=== PATIENT | female | born 1950 | race Caucasian/White ===

== ENCOUNTER → 2016-09-12 | Outpatient (CLI) | payer OTHER ==
[~2016-09-12] MED LIST: CALC1TAB9 PO; CHOL400T PO; LISI-729 PO; NAPR-1169 PO; SIMV20TA2 PO
[2016-09-12 18:10] LABS: BLOOD UREA NITROGEN 17 mg/dl (7-18); CARBON DIOXIDE 27 mmol/L (21-32); CHLORIDE 106 mmol/L (98-107); GLUCOSE 76 mg/dl (70-99); POTASSIUM 3.3 mmol/L (3.5-5.1); SODIUM 144 mmol/L (136-145)
== END | disposition home or self-care (01) ==
LOC: C.LABPVFM 15:26
PROVIDERS: ATTEND Nurse Practitioner
DX: M85.80 Other specified disorders of bone density and structure, unspecified site (principal); E55.9 Vitamin D deficiency, unspecified; I10 Essential (primary) hypertension

== ENCOUNTER → 2017-02-02 | Outpatient (CLI) | payer OTHER ==
--- NOTE | 2017-02-02 12:47 | MAMMOGRAPHY REPORT ---
BILATERAL DIGITAL SCREENING MAMMOGRAM TOMOSYNTHESIS WITH CAD: 02/02/2017 CLINICAL HISTORY: Asymptomatic. Personal history of breast cancer. TECHNIQUE: Breast tomosynthesis in addition to standard 2D mammography was performed. Current study was also evaluated with a Computer Aided Detection (CAD) system. COMPARISON: Comparison is made to exams dated: 01/21/2014 mammogram, 01/23/2015 mammogram, 12/31/2012 ma mmogram, 12/16/2011 mammogram, 12/10/2010 mammogram, and 01/29/2016 mammogram - [facility] nter. BREAST COMPOSITION: There are scattered areas of fibroglandular density in both breasts. FINDINGS: No suspicious masses, calcifications, or areas of architectural distortion are noted in ei ther breast. There has been no significant interval change compared to prior exams. There are stable postsurgical changes in the left breast from prior lumpectomy, including coarse benign calcification s at the lumpectomy bed and elsewhere in the left breast. There is also stable diffuse mild left christian ast skin thickening. Benign intramammary lymph nodes are again seen in the right upper outer quadran t. IMPRESSION: ACR BI-RADS CATEGORY 2: BENIGN There is no mammographic evidence of malignancy. A 1 year screening mammogram is recommended. The pa tient will receive written notification of the results. Approximately 10% of breast cancers are not detected with mammography. A negative mammographic report should not delay biopsy if a clinically suggestive mass is present. Jody Hunt M.D. ah/:02/02/2017 07:44:57 Pipeline Superintendent: Isabel LEE(Duncan)(Abdiel), [facility] letter sent: Normal 1/2 BI-RADS Code: ACR BI-RADS Category 2: Benign
== END | disposition home or self-care (01) ==
LOC: C.MAMM 07:15
PROVIDERS: ATTEND Nurse Practitioner
DX: Z12.31 Encounter for screening mammogram for malignant neoplasm of breast (principal); E55.9 Vitamin D deficiency, unspecified; M81.0 Age-related osteoporosis without current pathological fracture; M85.852 Other specified disorders of bone density and structure, left thigh

== ENCOUNTER → 2017-03-28 | Outpatient (CLI) | payer OTHER ==
[2017-03-28 18:22] LABS: BLOOD UREA NITROGEN 16 mg/dl (7-18); CALCIUM 9.2 mg/dl (8.5-10.1); CARBON DIOXIDE 27 mmol/L (21-32); CHLORIDE 109 mmol/L (98-107); CREATININE 0.92 mg/dl (0.60-1.20); GLUCOSE 94 mg/dl (70-99); POTASSIUM 3.8 mmol/L (3.5-5.1); SODIUM 142 mmol/L (136-145)
[2017-03-28 18:25] LABS: CHOLESTEROL 180 mg/dl (0-200); CHOLESTEROL/HDL RATIO 2.4; HDL CHOLESTEROL 75 mg/dl; LDL CHOLESTEROL CALCULATED 91 mg/dl; TRIGLYCERIDES 72 mg/dl (0-150); VERY LOW DENSITY LIPOPROT CALC 14 mg/dl
== END | disposition home or self-care (01) ==
LOC: C.LABPVFM 16:11
PROVIDERS: ATTEND Nurse Practitioner
DX: E78.5 Hyperlipidemia, unspecified (principal); E55.9 Vitamin D deficiency, unspecified; I10 Essential (primary) hypertension

== ENCOUNTER → 2017-03-29 | Outpatient (CLI) | payer OTHER ==
--- NOTE | 2017-03-29 10:36 | DIAGNOSTIC IMAGING REPORT ---
BILATERAL LOWER EXTREMITY VENOUS DOPPLER HISTORY: Acute right lower extremity pain and swelling RT LEG PAIN/SWELLING R/O DVT COMPARISON STUDY: None. FINDINGS: There is normal compressibility, flow, and augmentation within the right lower extremity deep venous system. IMPRESSION: No sonographic evidence of deep venous thrombosis within the right lower extremity. Electronically signed by: Nba Samson M.D. 03/29/2017 10:35 AM Dictated Date/Time: 03/29/2017 10:33 AM
== END | disposition home or self-care (01) ==
LOC: C.ULTRBC 09:45
PROVIDERS: ATTEND Nurse Practitioner
DX: M79.661 Pain in right lower leg (principal)

== ENCOUNTER 2017-04-03 07:00 | Emergency (ER) | payer OTHER ==
[~2017-04-03] VITALS: Ht 154.9 cm; Wt 84.8 kg
[~2017-04-03 07:00] MED LIST changes: -CALC1TAB9 PO; -CHOL400T PO; -NAPR-1169 PO
[2017-04-03 07:06] VITALS: TEMP 36.4; Ht 154.9 cm; Wt 84.8 kg
[2017-04-03] MEDS ORDERED: HYDROCODONE/ACETAMOPHEN 5/325MG TAB PO STA (07:35)
--- NOTE | 2017-04-03 07:50 | EMERGENCY ROOM VISIT NOTE ---
ED Visit Note First contact with patient: 07:14 CHIEF COMPLAINT: Leg swelling and pain HISTORY OF PRESENT ILLNESS: This 67-year-old female patient presented to the emergency department with her son with complaint of right lower extremity pain has been ongoing for the past 2 weeks. She states the pain has come on gradually, describes it as a shooting pain down the right lateral side of her thigh to her ankle, now it has been wrapping around from the lateral side to the back of her knee. She states the pain is worse with putting pressure on the leg and ambulation. She has associated intermittent tingling in her toes and foot. She states that she saw her doctor for this a week ago and had an ultrasound of the leg was negative for blood clots. There has been no injury to the leg or knee, no fever, and no unusual activity which may have strained a muscle recently. She denies any weakness or numbness of the leg, saddle paresthesias, bowel or bladder dysfunction, fevers or chills. There has not been a long period of immobilization or long car or plane ride recently. There is no history of blood clots in the veins of the legs. She does have a history of spinal stenosis and previous lumbar [place] [address] Hicks. REVIEW OF SYSTEMS: Head: No headache, injury or neck pain. Neurological: No headache, new changes in mental status, vertigo, focal weakness, numbness. Cardiac: No chest pain, diaphoresis, dyspnea on exertion, orthopnea, pedal edema, or palpitations. Respiratory: No cough, change in sputum, wheezes, hemoptysis, shortness of breath, or stridor. Gastrointestinal: No abdominal pain, blood in stools, diarrhea, loss of appetite, nausea, or vomiting. General : No fever or chills, fatigue, loss of appetite, or significant recent weight gain or loss. PMH: The patient is healthy; there is no significant medical or surgical history. SOCIAL HISTORY: Patient lives at home. PHYSICAL EXAM: VITALS: Vitals are noted on the nurse's note and reviewed by myself. No abnormalities noted. GENERAL: Pleasant and cooperative, in no acute distress, non-diaphoretic, well- developed well-nourished. SKIN: The skin was without rashes, erythema, edema, or bruising. HEAD: Normocephalic atraumatic. EYES: Pupils equal round and reactive to light and accommodation. The Extraocular movements intact. NECK: Supple without nuchal rigidity. No cervical spine tenderness. No paraspinous muscle tenderness. No lymphadenopathy. HEART: Regular rate and rhythm without murmurs gallops or rubs. LUNGS: Clear to auscultation bilaterally without wheezes, rales or rhonchi. ABDOMEN: Positive bowel sounds x 4. Normal tympanic percussion. Soft, nontender, without masses or organomegaly. Negative axillary or inguinal adenopathy. Packer sign negative. MUSCULOSKELETAL: No muscle atrophy, erythema, or edema noted of the back. There is no tenderness over the lumbar spinous processes. There is no tenderness over the paraspinous muscles. There is no tenderness over the thoracic spine or paraspinous muscles. There are no muscle spasms present. The patient is slow to move around with maximum tenderness with. Positive straight leg raise test on right. There is tenderness with palpation to the right posterior-lateral knee. NEURO: Patient was alert and oriented to person place and time. Normal sensation to light and sharp touch. Deep tendon reflexes 2+ in the lower extremities. Dorsalis pedis pulse 2+ bilaterally. Gait normal. IMAGING: LUMBAR SPINE 5 VIEWS HISTORY: radiating right leg pain/tingling, eval surgical hardware COMPARISON: None. FINDINGS: There is no fracture. No subluxation. Posterior decompression fusion from L4 through S1. 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 The hardware appears intact. Small endplate osteophytes within the L3 and L4 levels. Mild facet osteoarthritis within the lumbar spine. IMPRESSION: No fracture or subluxation within the lumbar spine. Postoperative changes as described above. ----- RIGHT KNEE 2 VIEWS HISTORY: Right knee pain COMPARISON: None. FINDINGS: There is no fracture or dislocation. Soft tissues are unremarkable. No significant knee effusion. There are 2 calcific densities posterior to the joint space with the largest measuring 1.4 cm. These are consistent with intra-articular loose bodies. 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 IMPRESSION: 1. No fracture or dislocation within the right knee. 2. Posterior intra-articular loose bodies. 3. 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 EMERGENCY DEPARTMENT COURSE: I examined the patient. Differential diagnosis includes lumbar radiculopathy, sciatica, leg sprain/strain, contusion, DVT. Based on her exam, I suspect her symptoms may be coming from her lower back in a radiculopathy type pattern. Ultrasound exam of the leg from 5 days ago does not show any evidence of deep venous thrombosis or other abnormality. X-ray of the lumbar spine is unremarkable, intact surgical hardware; X-ray of the right knee shows no acute abnormalities, noted mild arthritis and intra-articular loose bodies. Patient was given a [place] with good improvement. Patient was provided with crutches to stay off of the leg for comfort, she was instructed to follow up with orthopedics regarding both her lower back and her knee, she verbalizes understanding. Patient was discharged home in stable condition. Medication Reconciliation: I attest that I have personally reviewed the patient' s current medication list. Blood pressure screening: The patient was found to have a slightly elevated blood pressure, which was felt to be situational and does not require immediate referral. I discussed the patient with Dr. Ojeda, he agrees with my assessment and plan. Problem List HTN, hyperlipidemia, spinal stenosis Current/Historical Medications Scheduled Calcium Citrate-Vitamin D (Citracal + D3 Maximum), 1 TAB PO DAILY Cholecalciferol (Vitamin D), 800 UNITS PO DAILY Lisinopril (Prinivil), 5 MG PO DAILY Naproxen (Naprosyn), 500 MG PO BID Simvastatin (Zocor), 20 MG PO QPM Allergies Coded Allergies: No Known Allergies (Verified , 04/03/17) Vital Signs Date Time Temp Pulse Resp B/P (MAP) Pulse Ox O2 Delivery O2 Flow Rate FiO2 04/03/17 10:20 147/86 99 Room Air 04/03/17 10:15 75 18 105/61 99 04/03/17 09:22 75 18 105/61 04/03/17 07:06 36.4 82 20 139/82 99 Room Air Medications Administered Medications (Trade) Dose Ordered Sig/Ricky Route Start Time Stop Time Status Last Admin Dose Admin Acetaminophen/ Hydrocodone Bitart ([place] 5/325 Tab) 1 tab NOW STAT PO 04/03/17 07:35 04/03/17 07:36 DC 04/03/17 07:41 1 TAB Departure Information Impression Primary Impression: Pain of right knee and lower leg Dispostion Home / Self-Care Condition GOOD Prescriptions Naproxen (Naprosyn) 500 Mg Tab 500 MG PO BID for 14 Days, #28 TAB Prov: Maricel Thakur CRNP 04/03/17 Referrals Heike Kessler C.R.N.P (PCP) Patient Instructions ED Degenerative Joint Disease, ED Sciatica, [facility] Additional Instructions Stay off of the leg as much as possible and keep elevated. Alternate ice and heat to the swollen sore area frequently over the next few days. You have been prescribed Naprosyn 500mg to be taken twice a day as needed for pain. Your knee x-ray shows arthritis changes which could be causing your knee pain. Follow up with your orthopedic doctor regarding your knee pain. Follow up with your PCP and Dr. Hicks for further evaluation of your pain. Work Instructions Return To Work: 2 days
--- NOTE | 2017-04-03 08:14 | DIAGNOSTIC IMAGING REPORT ---
LUMBAR SPINE 5 VIEWS HISTORY: radiating right leg pain/tingling, eval surgical hardware COMPARISON: None. FINDINGS: There is no fracture. No subluxation. Posterior decompression fusion from L4 through S1. 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 The hardware appears intact. Small endplate osteophytes within the L3 and L4 levels. Mild facet osteoarthritis within the lumbar spine. IMPRESSION: No fracture or subluxation within the lumbar spine. Postoperative changes as described above. Electronically signed by: Brent Obrien M.D. 04/03/2017 8:13 AM Dictated Date/Time: 04/03/2017 8:10 AM
--- NOTE | 2017-04-03 08:14 | EMERGENCY ROOM VISIT NOTE ---
ED Visit Note First contact with patient: 07:14 HPI: Right lateral knee pain x several weeks. Negative duplex by pcp. No urinary retention or bowel incontinence. PE: AFVSS, NAD NC/AT RRR, no murmurs CTAB Abd soft NT/ND Ext: no edema, erythema, mild right knee ttp posterior lateral aspect. FROM intact. No lower back ttp. Distal pulse, motor, sensory intact. Neuro: grossly intact Plan: Xray, analgesia, pcp f/u. I reviewed the patient's past medical history, medications, and visit nursing notes. I discussed the case with the physician press assistant and feeder, examined the patient, and agree with the findings and plan as documented in the physician assistants note.
--- NOTE | 2017-04-03 08:17 | DIAGNOSTIC IMAGING REPORT ---
RIGHT KNEE 2 VIEWS HISTORY: Right knee pain COMPARISON: None. FINDINGS: There is no fracture or dislocation. Soft tissues are unremarkable. No significant knee effusion. There are 2 calcific densities posterior to the joint space with the largest measuring 1.4 cm. These are consistent with intra-articular loose bodies. 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 IMPRESSION: 1. No fracture or dislocation within the right knee. 2. Posterior intra-articular loose bodies. 3. 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 Electronically signed by: Brent Obrien M.D. 04/03/2017 8:16 AM Dictated Date/Time: 04/03/2017 8:15 AM
[2017-04-03] MEDS ORDERED: CALC1TAB9 PO (08:21)
[2017-04-03] MEDS ORDERED: CHOL400T PO (08:21)
[2017-04-03] MEDS ORDERED: NAPR-1169 PO (10:11)
[2017-04-03 10:15] VITALS: PULSE 75
[2017-04-03 10:20] VITALS: BP 147/86; O2SAT 99
== END 2017-04-03 10:29 | disposition home or self-care (01) ==
LOC: C.EDB 07:01
DX: M25.561 Pain in right knee (principal); M79.661 Pain in right lower leg; Z98.1 Arthrodesis status; I10 Essential (primary) hypertension; E78.5 Hyperlipidemia, unspecified; Z79.899 Other long term (current) drug therapy

== ENCOUNTER → 2017-10-17 | Outpatient (CLI) | payer OTHER ==
[~2017-10-17] MED LIST changes: +CALC1TAB9 PO; +CHOL400T PO
[2017-10-17 18:04] LABS: BLOOD UREA NITROGEN 12 mg/dl (7-18); CALCIUM 9.4 mg/dl (8.5-10.1); CARBON DIOXIDE 29 mmol/L (21-32); CREATININE 0.95 mg/dl (0.60-1.20); GLUCOSE 97 mg/dl (70-99); POTASSIUM 3.6 mmol/L (3.5-5.1); SODIUM 140 mmol/L (136-145)
== END | disposition home or self-care (01) ==
LOC: C.LABPVFM 16:20
PROVIDERS: ATTEND Nurse Practitioner
DX: I10 Essential (primary) hypertension (principal); M85.80 Other specified disorders of bone density and structure, unspecified site; E55.9 Vitamin D deficiency, unspecified

== ENCOUNTER → 2018-02-06 | Outpatient (CLI) | payer OTHER ==
--- NOTE | 2018-02-07 13:38 | MAMMOGRAPHY REPORT ---
BILATERAL DIGITAL SCREENING MAMMOGRAM TOMOSYNTHESIS WITH CAD: 02/06/2018 CLINICAL HISTORY: Asymptomatic. Personal history of breast cancer. TECHNIQUE: The study was acquired using full field digital technology and interpreted from soft copy. Breast tomosynthesis in addition to standard 2D mammography was performed. Current study was also ev aluated with a Computer Aided Detection (CAD) system. COMPARISON: Comparison is made to exams dated: 02/02/2017 mammogram, 01/29/2016 mammogram, 02/06/2015 kacie mogram, 01/23/2015 mammogram, 01/21/2014 mammogram, and 12/31/2012 mammogram - [facility] er. BREAST COMPOSITION: There are scattered areas of fibroglandular density in both breasts. FINDINGS: There are stable postsurgical and posttreatment changes in the left breast. A linear scar marker overlies the superior left breast. There is expected architectural distortion and a coarse dy strophic calcification at the surgical site in the approximate 11:00 left breast. Other scattered be nign rodlike and rim calcifications throughout the left breast in addition to mild vascular calcifica tion. Stable intramammary lymph nodes in the right breast. No new suspicious mass, architectural dis tortion or cluster of microcalcifications is seen. IMPRESSION: ACR BI-RADS CATEGORY 1: NEGATIVE There is no mammographic evidence of malignancy. A 1 year screening mammogram is recommended.( 019) The patient will receive written notification of the results. Some breast cancers are not detected with mammography. A negative mammographic report should not adi y biopsy if a clinically suggestive mass is present. Antonina Diaz M.D. ay/:02/06/2018 16:22:41 Cone Winder: Radha Huston, [facility] letter sent: Normal 1/2 BI-RADS Code: ACR BI-RADS Category 1: Negative
== END | disposition home or self-care (01) ==
LOC: C.MAMM 07:14
PROVIDERS: ATTEND Nurse Practitioner
DX: Z12.31 Encounter for screening mammogram for malignant neoplasm of breast (principal); Z85.3 Personal history of malignant neoplasm of breast

== ENCOUNTER 2018-11-01 19:59 | Inpatient (IN) ==
[2018-11-01 20:41] LABS: Basophils # (auto) 0.01 K/uL (0-0.2); Basophils % (auto) 0.1 %; Eosinophils # (auto) 0.14 K/uL (0-0.5); Eosinophils % (auto) 1.9 %; Hematocrit (blood only) 41.3 % (37-47); Lymphocytes # (auto) 1.79 K/uL (1.2-3.4); Lymphocytes % (auto) 23.9 %; Mean Corpuscular Hgb Conc 33.9 g/dL (32-36); Mean Corpuscular Volume 85.7 fL (80-100); Mean Platelet Volume 11.1 fL (7.4-10.4); Monocytes # (auto) 0.56 K/uL (0.11-0.59); Monocytes % (auto) 7.5 %; Neutrophils # (auto) 4.99 K/uL (1.4-6.5); Neutrophils % (auto) 66.6 %; Platelet Count 212 K/uL (130-400); RDW Coefficient of Variation 13.7 % (11.5-14.5); RDW Standard Deviation 43.1 fL (36.4-46.3); Red Blood Count 4.82 M/uL (4.2-5.4); White Blood Count 7.49 K/uL (4.8-10.8)
[2018-11-01] MEDS ORDERED: SODIUM CHLORIDE 0.9% 1000ML 1,000 ML IV ONE (20:48)
[2018-11-01 21:04] LABS: Albumin Level 3.8 gm/dl (3.4-5.0); BUN Creatinine Ratio 13.2 (10-20); Calcium 9.3 mg/dl (8.5-10.1); Creatinine Clr Calc Pharmacy 41.2 ml/min; Est GFR (African American) 51.5; Est GFR (Non-African American) 44.4; Magnesium 2.1 mg/dl (1.8-2.4); Potassium 4.1 mmol/L (3.5-5.1)
--- NOTE | 2018-11-01 21:09 | XRay Report ---
XR chest 1V portable CLINICAL HISTORY: Chest Pain COMPARISON STUDY: Chest radiograph June 20, 2006. FINDINGS: Patient is rotated. There is no pneumothorax or pleural effusion. There is no consolidation or evidence for pulmonary edema. Cardiac size is within normal limits. A density projecting over the left lower lung may reflect a calcified lung nodule or benign rib lesion. Prominent right mediastina l contour is noted. IMPRESSION: 1. Prominent right mediastinal contour. This is probably artifactual. Dilatation of the ascending aor ta could appear similar although is considered less likely. PA and lateral chest radiographs are venkata mmended. 2. No acute cardiopericardial findings. Electronically signed by: Mikey Estrella M.D. 11/01/2018 9:07 PM
[2018-11-01 21:20] LABS: Albumin Globulin Ratio 1.3 (0.9-2); Bilirubin,Total 0.4 mg/dl (0.2-1); Phosphorus 2.7 mg/dl (2.5-4.9); Total Protein 6.8 gm/dl (6.4-8.2); Troponin I 0.236 ng/ml (0-0.045)
[2018-11-01 22:01] LABS: Appearance Urine Clear (Clear); Bacteria Urine Automated Negative (Negative); Bilirubin Urine Negative (Negative); Blood Urine Negative (Negative); Cast Urine Automated 0 /lpf (0-5); Color Urine Yellow; Glucose Urine UA Negative (Negative); Ketones Urine Negative (Negative); Leukocyte Esterase Urine 1+ (Negative); Nitrite Urine Negative (Negative); Protein Urine Negative (Negative); RBC Urine Automated 0-4 /hpf (0-4); Specific Gravity Urine 1.019 (1.000-1.030); Urobilinogen Urine Negative (Negative); pH Urine 6.5 (4.5-7.5)
[2018-11-01] MEDS ORDERED: OPTIRAY 320 125ml IV PRN (22:28)
--- NOTE | 2018-11-01 22:35 | CT Scan Report ---
CT OF THE HEAD WITHOUT CONTRAST CLINICAL HISTORY: Syncope. COMPARISON STUDY: No previous studies for comparison. CT DOSE: 537.48 mGy.cm TECHNIQUE: Helical axial images of the head were obtained without IV contrast. Automated exposure con trol was utilized for the study. A dose lowering technique was utilized adhering to the principles o f ALARA. FINDINGS: No acute intracranial hemorrhage, midline shift or mass effect is present. Brain volume is normal. Ventricular system is normal. The basilar cisterns are patent. There are no extra-axial colle ctions. Jacobs-white differentiation is preserved. There are no findings to suggest acute dural sinus t hrombosis or acute territorial infarct. No calvarial fracture is identified. IMPRESSION: No acute intracranial findings. Electronically signed by: Mikey Estrella M.D. 11/01/2018 10:33 PM
--- NOTE | 2018-11-01 22:45 | Emergency Department Note ---
Entered by Ayad Lee acting as a scribe for Vincent Ojeda MD History of Present Illness General Chief complaint: Dizziness Stated complaint: HEADACHE,DIZZINESS,TACHYCARDIA Time Seen by Provider: 11/01/18 20:32 Source: patient History of Present Illness Onset (ago): hour(s) 1 Location: head (global) Pain Consistency: + other (persistent) Quality: + other (dizziness) Associated symptoms: + cough, + headaches and + weakness The patient is a 68 year old female who presents to the Emergency Room with complaints of persistent dizziness beginning about one hour ago. The patient reports that throughout the day she felt weak. One hour ago while walking in her yard she developed lightheadedness and felt near-syncopal, but she did not lose consciousness and did not feel like the room was spinning. She notes that she currently feels a little dizzy. She reports a headache, stating that she usually has headaches about once a month. She notes an occasional cough. She denies current nausea. She states that she currently feels nervous but denies a history of anxiety. Home Medications Home Medications Medication Instructions Recorded Confirmed Type calcium citrate-vitamin D3 1 tab PO DAILY 11/01/18 11/01/18 History [Calcium Citrate + D] cholecalciferol (vitamin D3) 800 unit PO DAILY 11/01/18 11/01/18 History ibuprofen 200 mg PO Q6H PRN 11/01/18 11/01/18 History lisinopril 5 mg PO DAILY 11/01/18 11/01/18 History simvastatin 20 mg PO Q OTHER DAY 11/01/18 11/01/18 History Allergies Allergy/AdvReac Type Severity Reaction Status Date / Time No Known Allergies Allergy Verified 11/01/18 21:09 Past Med/Surg History Medical History Hypertension Family History Other Family history non-contributory Social History Preferred Language: Citizen Of [place] Feels Safe at Home: Yes Smoking Status: Never smoker Review of Systems See HPI for pertinent positives & negatives. and A total of 10 systems reviewed and were otherwise negative Physical Exam Vital Signs Vital Signs - 24 hr 11/01/18 20:14 11/01/18 20:30 11/01/18 21:55 Temperature 36.5 C Temperature Source Oral Sepsis Recent Fever Within 48 Hours No Sepsis New/Unexplained Change in Mental Status No Sepsis Action Taken by Nursing No Action Required Pulse Rate 93 H Pulse Rate [Left Apical] 73 Pulse Rhythm Regular Regular Pulse Rhythm [Left Apical] Regular Pulse Strength Normal Pulse Strength [Left Apical] Normal Respiratory Rate 20 17 18 Respiratory Effort / Characteristics Non-Labored Spontaneous Non-Labored Spontaneous Respiratory Depth Normal Normal Respiratory Pattern Regular Regular Blood Pressure 129/80 Blood Pressure [Right Arm] 125/72 Blood Pressure Mean 96 Blood Pressure Mean [Right Arm] 89 Blood Pressure Position Sitting Blood Pressure Position [Right Arm] Lying Pulse Oximetry 97 97 Oxygen Delivery Method Room Air Room Air Room Air 11/02/18 00:04 11/02/18 01:31 11/02/18 01:48 Temperature 36.5 C Temperature Source Oral Sepsis Recent Fever Within 48 Hours Sepsis New/Unexplained Change in Mental Status Sepsis Action Taken by Nursing Pulse Rate 73 Pulse Rate [Left Apical] 63 71 Pulse Rhythm Pulse Rhythm [Left Apical] Regular Regular Pulse Strength Pulse Strength [Left Apical] Normal Respiratory Rate 19 17 18 Respiratory Effort / Characteristics Non-Labored Spontaneous Respiratory Depth Normal Normal Respiratory Pattern Regular Blood Pressure 127/97 Blood Pressure [Right Arm] 130/67 133/83 Blood Pressure Mean Blood Pressure Mean [Right Arm] 88 99 Blood Pressure Position Blood Pressure Position [Right Arm] Sitting Lying Pulse Oximetry 96 97 94 Oxygen Delivery Method Room Air Room Air GENERAL: Awake, alert, fatigued-appearing, in no distress HENT: Normocephalic, atraumatic. Mucous membranes dry. EYES: Normal conjunctiva. Sclera non-icteric. EOMI. No nystamgus. PEARRL. NECK: Supple. No nuchal rigidity. FROM. No JVD. RESPIRATORY: CTAB. Normal effort. CARDIAC: Regular rate, normal rhythm. Extremities warm and well perfused. Pulses equal. ABDOMEN: Soft, non-distended. No tenderness to palpation. No rebound or guarding. No masses. RECTAL: Deferred. MUSCULOSKELETAL: Chest examination reveals no tenderness. The back is symmetrical on inspection without obvious abnormality. There is no CVA tendern ess to palpation. No joint edema. LOWER EXTREMITIES: Calves are equal size bilaterally and non-tender. No edema. No discoloration. NEURO: Normal sensorium. No sensory or motor deficits noted. Cerebellar function intact, including finger to nose, alternating palms, heel to langley. 5/5 strength and SILT x 4 extremities. SKIN: No rash or jaundice noted. Course 2036: The patient was evaluated in room B9. A complete history and physical examination were performed. 2136: I updated the patient on current results. Administered Medications Ioversol (Optiray 320 125ml) 125 ml IV ONCE PRN PRN Reason: Interaction Checking Stop: 11/05/18 22:27 Last Admin: 11/01/18 22:28 Dose: 119 ml Documented by: [id number] Discontinued Medications Aspirin (Aspirin) 324 mg PO NOW STA Stop: 11/01/18 23:02 Last Admin: 11/01/18 23:36 Dose: 324 mg Documented by: [id number] Sodium Chloride (Nss 1000ml) 1,000 mls @ 999 mls/hr IV .Q1H1M ONE Stop: 11/01/18 21:48 Last Infusion: 11/01/18 22:13 Dose: 0 mls/hr Documented by: [id number] Admin: 11/01/18 21:20 Dose: 999 mls/hr Documented by: [id number] Acetaminophen (Ofirmev) 1,000 mg in 100 mls @ 400 mls/hr IV NOW STA Stop: 11/01/18 23:22 Last Infusion: 11/02/18 00:35 Dose: 0 mls/hr Documented by: [id number] Admin: 11/01/18 23:36 Dose: 400 mls/hr Documented by: [id number] Medical Decision Making Differential Diagnosis Differential diagnosis includes: vasovagal event, infection, hypoglycemia, electrolyte abnormalities, cardiac sources, intracerebral event, toxicologic, neurologic, as well as others were entertained. Medical Records Attestation: I reviewed the patient's medical records. Home Medications Current Medication List: was personally reviewed by me Laboratory Data Attestation: I reviewed the patient's lab results. Result diagrams: 11/01/18 20:35 11/02/18 01:59 Lab Results 11/01/18 11/01/18 11/01/18 Range/Units 20:35 20:35 21:05 WBC 7.49 (4.8-10.8) K/uL RBC 4.82 (4.2-5.4) M/uL Hgb 14.0 (12.0-16.0) g/dL Hct 41.3 (37-47) % MCV 85.7 (80-100) fL MCH 29.0 (25-34) pg MCHC 33.9 (32-36) g/dL RDW Std Deviation 43.1 (36.4-46.3) fL RDW Coeff of Denisha 13.7 (11.5-14.5) % Plt Count 212 (130-400) K/uL MPV 11.1 H (7.4-10.4) fL Immature Gran % (Auto) 0.0 % Neut % (Auto) 66.6 % Lymph % (Auto) 23.9 % Gray % (Auto) 7.5 % Eos % (Auto) 1.9 % Baso % (Auto) 0.1 % Immature Gran # (Auto) 0.00 (0.00-0.02) K/uL Neut # (Auto) 4.99 (1.4-6.5) K/uL Lymph # (Auto) 1.79 (1.2-3.4) K/uL Gray # (Auto) 0.56 (0.11-0.59) K/uL Eos # (Auto) 0.14 (0-0.5) K/uL Baso # (Auto) 0.01 (0-0.2) K/uL PT (9.0-12.0) Seconds INR (0.9-1.1) APTT (21.0-31.0) Seconds PTT Ratio Sodium 142 (136-145) mmol/L Potassium 4.1 (3.5-5.1) mmol/L Chloride 112 H (98-107) mmol/L Carbon Dioxide 26 (21-32) mmol/L Anion Gap 4.0 (3-11) BUN 16 (7-18) mg/dl Creatinine 1.23 H (0.6-1.2) mg/dl Est Cr Clr Drug Dosing 41.2 ml/min Est GFR ( Amer) 51.5 Est GFR (Non-Af Amer) 44.4 BUN/Creatinine Ratio 13.2 (10-20) Glucose 102 H (70-99) mg/dl Calcium 9.3 (8.5-10.1) mg/dl Phosphorus 2.7 (2.5-4.9) mg/dl Magnesium 2.1 (1.8-2.4) mg/dl Total Bilirubin 0.4 (0.2-1) mg/dl AST 16 (15-37) U/L ALT 26 (12-78) U/L Alkaline Phosphatase 68 (45-117) U/L Troponin I 0.236 H* (0-0.045) ng/ml Total Protein 6.8 (6.4-8.2) gm/dl Albumin 3.8 (3.4-5.0) gm/dl Globulin 3.0 (2.5-4.0) gm/dl Albumin/Globulin Ratio 1.3 (0.9-2) Triglycerides (0-150) mg/dl Cholesterol (0-200) mg/dl LDL Cholesterol, Calc mg/dl VLDL Cholesterol, Calc mg/dl HDL Cholesterol mg/dl Cholesterol/HDL Ratio Lipase 131 (73-393) U/L TSH 1.090 (0.300-4.500) uIu/ml Urine Color Yellow Urine Appearance Clear (Clear) Urine pH 6.5 (4.5-7.5) Ur Specific Homer 1.019 (1.000-1.030) Urine Protein Negative (Negative) Urine Glucose (UA) Negative (Negative) Urine Ketones Negative (Negative) Urine Blood Negative (Negative) Urine Nitrite Negative (Negative) Urine Bilirubin Negative (Negative) Urine Urobilinogen Negative (Negative) Ur Leukocyte Esterase 1+ H (Negative) Urine WBC (Auto) 1-5 (0-5) /hpf Urine RBC (Auto) 0-4 (0-4) /hpf U Hyaline Cast (Auto) 0 (0-5) /lpf U Epithel Cells (Auto) 5-10 H (0-5) /lpf Urine Bacteria (Auto) Negative (Negative) 11/01/18 11/01/18 11/02/18 Range/Units 22:47 23:21 01:59 WBC (4.8-10.8) K/uL RBC (4.2-5.4) M/uL Hgb (12.0-16.0) g/dL Hct (37-47) % MCV (80-100) fL MCH (25-34) pg MCHC (32-36) g/dL RDW Std Deviation (36.4-46.3) fL RDW Coeff of Denisha (11.5-14.5) % Plt Count (130-400) K/uL MPV (7.4-10.4) fL Immature Gran % (Auto) % Neut % (Auto) % Lymph % (Auto) % Gray % (Auto) % Eos % (Auto) % Baso % (Auto) % Immature Gran # (Auto) (0.00-0.02) K/uL Neut # (Auto) (1.4-6.5) K/uL Lymph # (Auto) (1.2-3.4) K/uL Gray # (Auto) (0.11-0.59) K/uL Eos # (Auto) (0-0.5) K/uL Baso # (Auto) (0-0.2) K/uL PT 11.4 (9.0-12.0) Seconds INR 1.1 (0.9-1.1) APTT 25.6 (21.0-31.0) Seconds PTT Ratio 0.9 Sodium 139 (136-145) mmol/L Potassium 4.0 (3.5-5.1) mmol/L Chloride 110 H (98-107) mmol/L Carbon Dioxide 27 (21-32) mmol/L Anion Gap 2.0 L (3-11) BUN 15 (7-18) mg/dl Creatinine 1.08 (0.6-1.2) mg/dl Est Cr Clr Drug Dosing 46.9 ml/min Est GFR ( Amer) 60.2 Est GFR (Non-Af Amer) 52.0 BUN/Creatinine Ratio 14.2 (10-20) Glucose 101 H (70-99) mg/dl Calcium 9.0 (8.5-10.1) mg/dl Phosphorus (2.5-4.9) mg/dl Magnesium (1.8-2.4) mg/dl Total Bilirubin 0.5 (0.2-1) mg/dl AST 14 L (15-37) U/L ALT 23 (12-78) U/L Alkaline Phosphatase 69 (45-117) U/L Troponin I 0.395 H* 0.450 H* (0-0.045) ng/ml Total Protein 6.7 (6.4-8.2) gm/dl Albumin 3.7 (3.4-5.0) gm/dl Globulin 3.0 (2.5-4.0) gm/dl Albumin/Globulin Ratio 1.2 (0.9-2) Triglycerides 100 (0-150) mg/dl Cholesterol 168 (0-200) mg/dl LDL Cholesterol, Calc 88 mg/dl VLDL Cholesterol, Calc 20 mg/dl HDL Cholesterol 60 mg/dl Cholesterol/HDL Ratio 3 Lipase (73-393) U/L TSH (0.300-4.500) uIu/ml Urine Color Urine Appearance (Clear) Urine pH (4.5-7.5) Ur Specific Homer (1.000-1.030) Urine Protein (Negative) Urine Glucose (UA) (Negative) Urine Ketones (Negative) Urine Blood (Negative) Urine Nitrite (Negative) Urine Bilirubin (Negative) Urine Urobilinogen (Negative) Ur Leukocyte Esterase (Negative) Urine WBC (Auto) (0-5) /hpf Urine RBC (Auto) (0-4) /hpf U Hyaline Cast (Auto) (0-5) /lpf U Epithel Cells (Auto) (0-5) /lpf Urine Bacteria (Auto) (Negative) Imaging Data Radiologist's Impression: Radiology results as stated below per my review and the radiologist's interpretation: XR chest 1V portable CLINICAL HISTORY: Chest Pain COMPARISON STUDY: Chest radiograph June 20, 2006. FINDINGS: Patient is rotated. There is no pneumothorax or pleural effusion. There is no consolidation or evidence for pulmonary edema. Cardiac size is within normal limits. A density projecting over the left lower lung may reflect a calcified lung nodule or benign rib lesion. Prominent right mediastinal contour is noted. IMPRESSION: 1. Prominent right mediastinal contour. This is probably artifactual. Dilatation of the ascending aorta could appear similar although is considered less likely. PA and lateral chest radiographs are recommended. 2. No acute cardiopericardial findings. Electronically signed by: Mikey Estrella M.D. 11/01/2018 9:[address] OF THE HEAD WITHOUT CONTRAST CLINICAL HISTORY: Syncope. COMPARISON STUDY: No previous studies for comparison. CT DOSE: 537.48 mGy.cm TECHNIQUE: Helical axial images of the head were obtained without IV contrast. Automated exposure control was utilized for the study. A dose lowering technique was utilized adhering to the principles of ALARA. FINDINGS: No acute intracranial hemorrhage, midline shift or mass effect is present. Brain volume is normal. Ventricular system is normal. The basilar cisterns are patent. There are no extra-axial collections. Jacobs-white di fferentiation is preserved. There are no findings to suggest acute dural sinus thrombosis or acute territorial infarct. No calvarial fracture is identified. IMPRESSION: No acute intracranial findings. Electronically signed by: Mikey Estrella M.D. 11/01/2018 10:33 PM ---- CT ANGIOGRAPHY OF THE CHEST, PULMONARY EMBOLUS PROTOCOL CLINICAL HISTORY: Chest pain. Syncope. COMPARISON STUDY: Chest radiograph performed earlier today. TECHNIQUE: Following IV administration of 119 mL of Optiray-320, helical axial images of the chest were obtained utilizing the pulmonary embolus protocol. Maximal intensity projections and sagittal and coronal reformats were viewed on an independent 3D workstation. IV contrast was administered without complication. Automated exposure control was utilized for the study. A dose lowering technique was utilized adhering to the principles of ALARA. CT DOSE: 521.79 mGy.cm FINDINGS: No pulmonary emboli are identified. There is no thoracic aortic dissection. The heart is mildly enlarged. There is no pericardial effusion. No enlarged thoracic lymph nodes are present. The central airways are patent. There is no consolidation to suggest pneumonia. No pneumothorax or pleural effusion is noted. Bony thorax and upper abdomen are unremarkable. Prominence of the right mediastinal contour on chest radiograph was due to normal structures. The calibe r of the thoracic aorta is normal. IMPRESSION: 1. No pulmonary emboli identified. 2. No acute intrathoracic findings. 3. Mild cardiomegaly. 4. Apparent abnormal mediastinal contour on chest radiograph was due to normal structures. Normal caliber thoracic aorta. Electronically signed by: Mikey Estrella M.D. 11/01/2018 10:56 PM ECG Data Attestation: I personally reviewed and interpreted this ECG as follows: Indication: other (dizziness, weakness) Rate (beats per minute): 80 Rhythm: normal sinus Findings: + other (LVH; no overt acute ischemic changes) and + nonspecific-ST abn Comparison ECG Date: from (06/20/06) Change: no significant change Blood Pressure Blood Pressure Findings: Normal blood pressure Blood Pressure Disposition: did not require urgent referral MDM Narrative The patient is a pleasant 68-year-old woman with a past medical history of hypertension, hyperlipidemia who presents to the emergency department with generalized weakness and lightheadedness/near syncope prior to arrival when she was outside walking in her yard per hpi. She denies any chest pain, nausea or vomiting, or shortness of breath with episode. On arrival the patient is fatigued appearing but no acute distress, afebrile stable vital signs. Patient appears clinically dry. She is neurologically intact. EKG demonstrates sinus rhythm with criteria for LVH and nonspecific ST abnormalities with right bundle branch morphology that is similar to her EKG 2005. Chest x-ray without evidence of pneumonia but does demonstrate prominent right mediastinal contour further clarified on CT chest that is normal anatomy. WBC, H/H, platelets wnl. Chemistry without acidosis. Creatinine 1.23 similar to value 2 weeks ago LFTs and elect rolytes unremarkable. Troponin elevated at 0.236 without recent prior values for comparison. UA negative. CT head negative. CTA of the chest negative for PE or dissection. Patient continuing to feel improved after IV fluid hydration. She reports a mild headache and denies CP, SOB, or nausea. Unclear etiology the patient's troponin elevation at this time. Patient ordered for aspirin. Repeat EKG unchanged. Delta 2-hour troponin ordered and pending. Case d/w Dr. Kramer, [facility] hospitalist, who will evaluate the patient for admission. Impression & Plan Near syncope, Elevated troponin Discharge Plan Visit Data *Final* Discharge Date/Time: 11/02/18 01:31 Chief Complaint: Dizziness Stated Complaint: HEADACHE,DIZZINESS,TACHYCARDIA ED Provider: Vincent Ojeda Discharge Problem: Near syncope, Elevated troponin Patient Disposition: Admitted As Inpatient Discharge Instructions Interventions: ED Discharge Assessment Last Done: 11/02/18 01:31 The scribe's documentation has been prepared under my direction and personally reviewed by me in its entirety. I confirm that the note above accurately reflects all work, treatment, procedures, and medical decision making performed by me.
--- NOTE | 2018-11-01 22:57 | CT Scan Report ---
CT ANGIOGRAPHY OF THE CHEST, PULMONARY EMBOLUS PROTOCOL CLINICAL HISTORY: Chest pain. Syncope. COMPARISON STUDY: Chest radiograph performed earlier today. TECHNIQUE: Following IV administration of 119 mL of Optiray-320, helical axial images of the chest we re obtained utilizing the pulmonary embolus protocol. Maximal intensity projections and sagittal and coronal reformats were viewed on an independent 3D workstation. IV contrast was administered withou t complication. Automated exposure control was utilized for the study. A dose lowering technique wa s utilized adhering to the principles of ALARA. CT DOSE: 521.79 mGy.cm FINDINGS: No pulmonary emboli are identified. There is no thoracic aortic dissection. The heart is m ildly enlarged. There is no pericardial effusion. No enlarged thoracic lymph nodes are present. The c entral airways are patent. There is no consolidation to suggest pneumonia. No pneumothorax or pleural effusion is noted. Bony thorax and upper abdomen are unremarkable. Prominence of the right mediastin al contour on chest radiograph was due to normal structures. The caliber of the thoracic aorta is nor mal. IMPRESSION: 1. No pulmonary emboli identified. 2. No acute intrathoracic findings. 3. Mild cardiomegaly. 4. Apparent abnormal mediastinal contour on chest radiograph was due to normal structures. Normal christian iber thoracic aorta. Electronically signed by: Mikey Estrella M.D. 11/01/2018 10:56 PM
[2018-11-01] MEDS ORDERED: ASPIRIN CHEW 324 MG PO STA (23:01)
[2018-11-01] MEDS ORDERED: ACETAMINOPHEN 1,000 MG/100 ML VIAL IV STA (23:08)
[2018-11-01 23:25] LABS: INR 1.1 (0.9-1.1); Partial Thromboplastin Ratio 0.9; Partial Thromboplastin Time 25.6 Seconds (21.0-31.0); Prothrombin Time 11.4 Seconds (9.0-12.0)
[2018-11-02] MEDS ORDERED: ACETAMINOPHEN 325 MG TAB PO PRN (01:48)
[2018-11-02] MEDS ORDERED: NITROGLYCERIN SL 0.4 MG/TAB TAB SL PRN (01:48)
[2018-11-02] MEDS ORDERED: POLYETHYLENE (MIRALAX) 17 GM PACK PO PRN (01:48)
[2018-11-02] MEDS ORDERED: ACETAMINOPHEN 1000 MG/100 ML IV IV PRN (01:48)
[2018-11-02] MEDS ORDERED: MAGNESIUM HYDROXIDE SUSP 30 ML UDC PO PRN (01:48)
[2018-11-02] MEDS ORDERED: ONDANSETRON INJ 2 MG/ML 2 ML VIAL IV PRN (01:48)
[2018-11-02] MEDS ORDERED: ALUMINUM/MAGNESIUM SUSP 30 ML UDC PO PRN (01:48)
[2018-11-02 02:33] LABS: Albumin Level 3.7 gm/dl (3.4-5.0); BUN Creatinine Ratio 14.2 (10-20); Creatinine Clr Calc Pharmacy 46.9 ml/min; Est GFR (African American) 60.2
[2018-11-02 02:40] LABS: Albumin Globulin Ratio 1.2 (0.9-2); Bilirubin,Total 0.5 mg/dl (0.2-1); Total Protein 6.7 gm/dl (6.4-8.2); Troponin I 0.45 ng/ml (0-0.045)
--- NOTE | 2018-11-02 04:49 | History & Physical Report ---
Date of Service November 02, 2018 Assessment & Plan (1) NSTEMI (non-ST elevated myocardial infarction): Troponin elevated on admission labs at 0.236. The patient will be admitted to telemetry for serial cardiac enzymes, serial EKG's, cardiac rhythm monitoring and a 2-D echocardiogram with Dopplers. EKG shows normal sinus rhythm at 60 bpm, right bundle branch block, T wave inversion in lead III, and flattening in aVF. Start heparin drip low-dose no bolus. Aspirin 81 mg p.o. every morning. Nitropaste 1 inch anterior chest wall every 6 hours. Consult cardiology Present on Admission?: Yes (2) Near syncope: Unclear etiology at this time. Chest x-ray, CT of head, and CT a of chest are all negative. Follow on monitor for possible arrhythmia. Continue cardiac work-up otherwise. Present on Admission?: Yes (3) Hypertension: Will hold lisinopril due to mild acute kidney injury with creatinine 1.25. Repeat laboratories in the a.m. Present on Admission?: Yes (4) Hyperlipidemia LDL goal <70: Continue simvastatin, but increase from 20 mg every other day to 40 mg daily Present on Admission?: Yes History of Present Illness Chief Complaint: The patient presented to the emergency department with complaint of headache, dizziness and palpitations. Primary Care Provider: LUIS Brumfield The patient is a 68-year-old female with a PMH including hypertension, and hyperlipidemia who presents to the emergency department with the acute onset of headache, dizziness and palpitations about 1 hour prior to arrival. She had generally been feeling weak during the day yesterday that began at work. She then reports that when walking her dog outside, she felt like she was almost going to pass out. She did not have any focal numbness, weakness or tingling in arms or legs, although she does report having some light tingling equally in both feet at this time. She reports headaches that began about 1 month ago. She has not had any any recent change in her dietary intake. She has not had any recent travels or sick exposures. Allergies Allergy/AdvReac Type Severity Reaction Status Date / Time No Known Allergies Allergy Verified 11/01/18 21:09 Home Medications Home Medications Medication Instructions Recorded Confirmed Type calcium citrate-vitamin D3 1 tab PO DAILY 11/01/18 11/01/18 History [Calcium Citrate + D] cholecalciferol (vitamin D3) 800 unit PO DAILY 11/01/18 11/01/18 History ibuprofen 200 mg PO Q6H PRN 11/01/18 11/01/18 History lisinopril 5 mg PO DAILY 11/01/18 11/01/18 History simvastatin 20 mg PO Q OTHER DAY 11/01/18 11/01/18 History Past Med/Surg History Medical History Hypertension Family History Other Family history non-contributory Social History Preferred Language: [place]al[place] Communication Ability: Effective Popcorn Attendant Required: No Beliefs That Will Affect Care: None Current Living Situation: Family Current Living Situation Comment: with son Feels Safe at Home: Yes Safety Concerns: Feels Safe At This Time Smoking Status: Never smoker Hx Alcohol Use: Yes Hx Substance Use: No Review of Systems Review of Systems: The patient denies chest pain, lower extremity swelling, sore throat, fevers, chills, sweats, nausea, vomiting, diarrhea , constipation, abdominal pain, pelvic pain, blood in urine or stool, dysuria, urinary frequency or urgency, memory loss, los s of consciousness, rash, abnormal bruising or bleeding, focal or generalized weakness, numbness or tingling in arms or legs, generalized arthralgias or myalgias, back or neck pain, or night sweats. The review of systems is otherwise negative other than for that already noted above, and at least 10 systems have been reviewed. Physical Exam Physical Exam: The patient is awake, alert and oriented 3, well developed and well nourished, normocephalic and atraumatic, lying in bed and in no acute distress. HEENT--PERRL, EOMI, mucous membranes and oropharynx dry. Neck--supple. No JVD. No bruits. Thyroid normal, trachea midline, no adenopathy. Heart--normal S1 and S2. No murmurs, rubs or gallops. Lungs--clear bilaterally, no respiratory distress, no accessory muscle use. Abdomen--normal bowel sounds and soft. Nontender. Nondistended, no hernias or masses, no organomegaly. Extremities--no cyanosis or clubbing. No edema. There are good distal pulses b/l. Dermatologic--normal skin turgor, normal color, no abnormal lymph nodes, no rash. Neurologic--cranial nerves II through XII grossly intact. Rheumatologic--normal range of motion. Psychiatric--normal affect. Results & Data Vital Signs (Past 12 Hours) Vital Signs Temp Pulse Pulse Resp BP BP Pulse Ox 11/02/18 02:00 68 11/02/18 01:48 97.7 F 71 18 133/83 94 11/02/18 01:40 97.7 F 71 18 133/83 94 11/02/18 01:31 73 17 127/97 97 11/02/18 00:04 63 19 130/67 96 11/01/18 21:55 73 18 125/72 97 11/01/18 20:30 17 11/01/18 20:14 97.7 F 93 H 20 129/80 97 Laboratory Results Laboratory Results WBC 7.49 K/uL (4.8-10.8) 11/01/18 20:35 RBC 4.82 M/uL (4.2-5.4) 11/01/18 20:35 Hgb 14.0 g/dL (12.0-16.0) 11/01/18 20:35 Hct 41.3 % (37-47) 11/01/18 20:35 MCV 85.7 fL (80-100) 11/01/18 20:35 MCH 29.0 pg (25-34) 11/01/18 20:35 MCHC 33.9 g/dL (32-36) 11/01/18 20:35 RDW Std Deviation 43.1 fL (36.4-46.3) 11/01/18 20:35 RDW Coeff of Denisha 13.7 % (11.5-14.5) 11/01/18 20:35 Plt Count 212 K/uL (130-400) 11/01/18 20:35 MPV 11.1 fL (7.4-10.4) H 11/01/18 20:35 Immature Gran % (Auto) 0.0 % 11/01/18 20:35 Neut % (Auto) 66.6 % 11/01/18 20:35 Lymph % (Auto) 23.9 % 11/01/18 20:35 Ripley % (Auto) 7.5 % 11/01/18 20:35 Eos % (Auto) 1.9 % 11/01/18 20:35 Baso % (Auto) 0.1 % 11/01/18 20:35 Immature Gran # (Auto) 0.00 K/uL (0.00-0.02) 11/01/18 20:35 Neut # (Auto) 4.99 K/uL (1.4-6.5) 11/01/18 20:35 Lymph # (Auto) 1.79 K/uL (1.2-3.4) 11/01/18 20:35 Ripley # (Auto) 0.56 K/uL (0.11-0.59) 11/01/18 20:35 Eos # (Auto) 0.14 K/uL (0-0.5) 11/01/18 20:35 Baso # (Auto) 0.01 K/uL (0-0.2) 11/01/18 20:35 PT 11.4 Seconds (9.0-12.0) 11/01/18 22:47 INR 1.1 (0.9-1.1) 11/01/18 22:47 APTT 25.6 Seconds (21.0-31.0) 11/01/18 22:47 PTT Ratio 0.9 11/01/18 22:47 Sodium 139 mmol/L (136-145) 11/02/18 01:59 Potassium 4.0 mmol/L (3.5-5.1) 11/02/18 01:59 [place] 110 mmol/L (98-107) H 11/02/18 01:59 Carbon Dioxide 27 mmol/L (21-32) 11/02/18 01:59 Anion Gap 2.0 (3-11) L 11/02/18 01:59 BUN 15 mg/dl (7-18) 11/02/18 01:59 Creatinine 1.08 mg/dl (0.6-1.2) 11/02/18 01:59 Est Cr Clr Drug Dosing 46.9 ml/min 11/02/18 01:59 Est GFR ( Amer) 60.2 11/02/18 01:59 Est GFR (Non-Af Amer) 52.0 11/02/18 01:59 BUN/Creatinine Ratio 14.2 (10-20) 11/02/18 01:59 Glucose 101 mg/dl (70-99) H 11/02/18 01:59 Calcium 9.0 mg/dl (8.5-10.1) 11/02/18 01:59 Phosphorus 2.7 mg/dl (2.5-4.9) 11/01/18 20:35 Magnesium 2.1 mg/dl (1.8-2.4) 11/01/18 20:35 Total Bilirubin 0.5 mg/dl (0.2-1) 11/02/18 01:59 AST 14 U/L (15-37) L 11/02/18 01:59 ALT 23 U/L (12-78) 11/02/18 01:59 Alkaline Phosphatase 69 U/L (45-117) 11/02/18 01:59 Troponin I 0.450 ng/ml (0-0.045) H* 11/02/18 01:59 Total Protein 6.7 gm/dl (6.4-8.2) 11/02/18 01:59 Albumin 3.7 gm/dl (3.4-5.0) 11/02/18 01:59 Globulin 3.0 gm/dl (2.5-4.0) 11/02/18 01:59 Albumin/Globulin Ratio 1.2 (0.9-2) 11/02/18 01:59 Triglycerides 100 mg/dl (0-150) 11/02/18 01:59 Cholesterol 168 mg/dl (0-200) 11/02/18 01:59 LDL Cholesterol, Calc 88 mg/dl 11/02/18 01:59 VLDL Cholesterol, Calc 20 mg/dl 11/02/18 01:59 HDL Cholesterol 60 mg/dl 11/02/18 01:59 Cholesterol/HDL Ratio 3 11/02/18 01:59 Lipase 131 U/L (73-393) 11/01/18 20:35 TSH 1.090 uIu/ml (0.300-4.500) 11/01/18 20:35 Urine Color Yellow 11/01/18 21:05 Urine Appearance Clear (Clear) 11/01/18 21:05 Urine pH 6.5 (4.5-7.5) 11/01/18 21:05 Ur Specific Bryan 1.019 (1.000-1.030) 11/01/18 21:05 Urine Protein Negative (Negative) 11/01/18 21:05 Urine Glucose (UA) Negative (Negative) 11/01/18 21:05 Urine Ketones Negative (Negative) 11/01/18 21:05 Urine Blood Negative (Negative) 11/01/18 21:05 Urine Nitrite Negative (Negative) 11/01/18 21:05 Urine Bilirubin Negative (Negative) 11/01/18 21:05 Urine Urobilinogen Negative (Negative) 11/01/18 21:05 Ur Leukocyte Esterase 1+ (Negative) H 11/01/18 21:05 Urine WBC (Auto) 1-5 /hpf (0-5) 11/01/18 21:05 Urine RBC (Auto) 0-4 /hpf (0-4) 11/01/18 21:05 U Hyaline Cast (Auto) 0 /lpf (0-5) 11/01/18 21:05 U Epithel Cells (Auto) 5-10 /lpf (0-5) H 11/01/18 21:05 Urine Bacteria (Auto) Negative (Negative) 11/01/18 21:05 [place], [place] [phone] XRay Report Patient: BALBIR MONDRAGON Date: 11/01/18 MR#: [id number]: [address] [facility] Acct ID:[id number]: Date: 1950[facility] Zip: [place] [address] Age: 68Location: ED Sex: F Room/Bed: Att Phy: Diagnosis: HEADACHE,DIZZINESS,TACHYCARDIA Sweetie Phy: Heike Kessler CRNPService Date: 11/01/18 Fam Phy: Interpreting Phy: Mikey Estrella MD Admit Phy: Ordering Phy: Vincent Ojeda M.D. cc: ~ XR chest 1V portable CLINICAL HISTORY: Chest Pain COMPARISON STUDY: Chest radiograph June 20, 2006. FINDINGS: Patient is rotated. There is no pneumothorax or pleural effusion. There is no consolidation or evidence for pulmonary edema. Cardiac size is within normal limits. A density projecting over the left lower lung may reflect a calcified lung nodule or benign rib lesion. Prominent right mediastinal contour is noted. IMPRESSION: 1. Prominent right mediastinal contour. This is probably artifactual. Dilatation of the ascending aorta could appear similar although is considered less likely. PA and lateral chest radiographs are recommended. 2. No acute cardiopericardial findings. Electronically signed by: Mikey Estrella M.D. 11/01/2018 9:07 PM Dictated: 11/01/182103 Transcribed: 11/01/182103 [place], [place] [phone] CT Scan Report Patient: BALBIR MONDRAGON Date: 11/01/18 MR#: [id number]: [address] Acct ID:[id number]: Date: 1950City Zip: [place] [address] Age: 68Location: ED Sex: F Room/Bed: Att Phy: Diagnosis: HEADACHE,DIZZINESS,TACHYCARDIA Sweetie Phy: Heike Kessler CRNPService Date: 11/01/18 Fam Phy: Interpreting Phy: Mikey Estrella MD Admit Phy: Ordering Phy: Vincent Ojeda M.D. cc: ~ CT ANGIOGRAPHY OF THE CHEST, PULMONARY EMBOLUS PROTOCOL CLINICAL HISTORY: Chest pain. Syncope. COMPARISON STUDY: Chest radiograph performed earlier today. TECHNIQUE: Following IV administration of 119 mL of Optiray-320, helical axial images of the chest were obtained utilizing the pulmonary embolus protocol. Maximal intensity projections and sagittal and coronal reformats were viewed on an independent 3D workstation. IV contrast was administered without complication. Automated exposure control was utilized for the study. A dose lowering technique was utilized adhering to the principles of ALARA. CT DOSE: 521.79 mGy.cm FINDINGS: No pulmonary emboli are identified. There is no thoracic aortic dissection. The heart is mildly enlarged. There is no pericardial effusion. No enlarged thoracic lymph nodes are present. The central airways are patent. There is no consolidation to suggest pneumonia. No pneumothorax or pleural effusion is noted. Bony thorax and upper abdomen are unremarkable. Prominence of the right mediastinal contour on chest radiograph was due to normal structures. The caliber of the thoracic aorta is normal. IMPRESSION: 1. No pulmonary emboli identified. 2. No acute intrathoracic findings. 3. Mild cardiomegaly. 4. Apparent abnormal mediastinal contour on chest radiograph was due to normal structures. Normal caliber thoracic aorta. Electronically signed by: Mikey Estrella M.D. 11/01/2018 10:56 PM Dictated: 11/01/182244 Transcribed: 11/01/182247 [place], [place] [phone] CT Scan Report Patient: BALBIR MONDRAGON Date: 11/01/18 MR#: [id number]: [address] Acct ID:[id number]: Date: 1950City Zip: [place] [address] Age: 68Location: ED Sex: F Room/Bed: Att Phy: Diagnosis: HEADACHE,DIZZINESS,TACHYCARDIA Sweetie Phy: Heike Kessler CRNPService Date: 11/01/18 Fam Phy: Interpreting Phy: Mikey Estrella MD Admit Phy: Ordering Phy: Vincent Ojeda M.D. cc: ~ CT OF THE HEAD WITHOUT CONTRAST CLINICAL HISTORY: Syncope. COMPARISON STUDY: No previous studies for comparison. CT DOSE: 537.48 mGy.cm TECHNIQUE: Helical axial images of the head were obtained without IV contrast. Automated exposure control was utilized for the study. A dose lowering technique was utilized adhering to the principles of ALARA. FINDINGS: No acute intracranial hemorrhage, midline shift or mass effect is present. Brain volume is normal. Ventricular system is normal. The basilar cisterns are patent. There are no extra-axial collections. Jacobs-white differentiation is preserved. There are no findings to suggest acute dural sinus thrombosis or acute territorial infarct. No calvarial fracture is identified. IMPRESSION: No acute intracranial findings. Electronically signed by: Mikey Estrella M.D. 11/01/2018 10:33 PM Dictated: 11/01/182230 Transcribed: 11/01/182230 Code Status & VTE Plan Code Status Full code VTE Prophylaxis Plan VTE Prophylaxis will be ordered: Yes
[2018-11-02] MEDS ORDERED: SIMVASTATIN 20 MG TAB PO SCH (05:00)
[2018-11-02] MEDS ORDERED: Heparin Adult LOW DOSE Wt-Based Dextrose 5% 25,000 units/500 mL IV SCH (05:30)
[2018-11-02] MEDS: NITROGLYCERIN 2% OINTMENT 30GM TUBE EXT SCH ×2 (05:33→12:47)
[2018-11-02 06:31] LABS: Basophils # (auto) 0.01 K/uL (0-0.2); Basophils % (auto) 0.2 %; Hematocrit (blood only) 38.6 % (37-47); Hemoglobin 12.8 g/dL (12.0-16.0); Lymphocytes # (auto) 1.76 K/uL (1.2-3.4); Mean Corpuscular Hgb Conc 33.2 g/dL (32-36); Mean Corpuscular Volume 87.3 fL (80-100); Mean Platelet Volume 11.4 fL (7.4-10.4); Monocytes # (auto) 0.25 K/uL (0.11-0.59); Monocytes % (auto) 5.1 %; Neutrophils # (auto) 2.77 K/uL (1.4-6.5); Neutrophils % (auto) 56.7 %; Platelet Count 187 K/uL (130-400); RDW Coefficient of Variation 13.9 % (11.5-14.5); RDW Standard Deviation 44.5 fL (36.4-46.3); Red Blood Count 4.42 M/uL (4.2-5.4); White Blood Count 4.89 K/uL (4.8-10.8)
[2018-11-02 06:46] LABS: INR 1.1 (0.9-1.1); Partial Thromboplastin Ratio 0.9; Partial Thromboplastin Time 25.2 Seconds (21.0-31.0); Prothrombin Time 11.3 Seconds (9.0-12.0)
[2018-11-02 07:21] LABS: Estimated Average Glucose 117 mg/dl; Hemoglobin A1C 5.7 % (4.5-5.6)
[2018-11-02] MEDS ORDERED: PNEUMOCOCCAL ADMINISTRATION CHARGE ONE (07:30)
[2018-11-02] MEDS ORDERED: PNEUMOCOCCAL POLYSACCHARIDES 25 MCG/0.5 ML VIAL/SYR IM ONE (07:30)
[2018-11-02] MEDS ORDERED: CHOLECALCIFEROL (VITAMIN D) 400 UNITS TABLET PO SCH (09:00)
[2018-11-02] MEDS ORDERED: CALCIUM 600MG + VIT D 400 IU TAB PO SCH (09:00)
[2018-11-02] MEDS ORDERED: ASPIRIN 81 MG ECTAB PO SCH (09:00)
--- NOTE | 2018-11-02 10:56 | Cardiology Consultation ---
Date of Consultation November 02, 2018 Assessment & Plan (1) Palpitations: The patient gives a history of sustained palpitations lasting 5-10 minutes several times every month. She did note these symptoms 2 times on the day of presentation. Suspect that she may have some type of an atrial dysrhythmia. Nothing has been identified on the monitor thus far. We will perform a 30 day outpatient event monitor. (2) Elevated troponin: The minor elevation in troponin is likely secondary to supply demand mismatch at the time of an atrial dysrhythmia as discussed above. No need to continue intravenous heparin. We will proceed with a stress echocardiogram to rule out myocardial ischemia. (3) Hypertension: Lisinopril is currently on home due to minor elevation in her creatinine at the time of her admission. Suspect lisinopril because of her chronic nonproductive cough. Could consider use of an agent such as losartan. (4) Hyperlipidemia LDL goal <70: Patient demonstrates excellent control of her lipid profile. Continue simvastatin. History of Present Illness Attending Physician: Sheldon Garber History of Present Illness Ms. May is a pleasant 68 year old female who presented to the Emergency Department last evening with a complaint of a racing heart and dizziness/near- syncope. The consultation was made due to elevated Troponin I. She stated that yesterday at work, she began to feel ill and felt her heart racing. This episode lasted about 5-10 minutes. She was then able to drive home and rest. Once home, she was out in her yard with her dogs and began to feel her heart racing again. She began to get dizzy and had near-syncope but did not have a syncopal episode. This again lasted 5-10 minutes. After this terminated, she still felt generally ill, which made her decided to come to the ED. She reports associated symptoms of nausea, anxiousness, shortness of breath and chest pressure. Her chest pressure was located on the left side and did not radiate. This lasted the same amount of time as her racing heart. Her shortness of breath was no worse than her baseline dyspnea that she occasionally gets with physical activity and climbing stairs. She states that over the last few months, she has occasionally felt her heart racing. This happens about three times a month she says. She brought it to the attention of her PCP, who ordered a CMP and TSH, which were both WNL. She has not worn a monitor. Today, she states she feels much better than she did last night. She reports a few episodes of tachycardia overnight, but did not have any other associated symptoms. She does not currently have any chest pain, shortness of breath, or palpitations. She denies any orthopnea or PND now or at baseline. She sleeps with two pillows to prop herself up at night. She denies any edema or claudication. She is active in her yard and around her home, but does not follow a regular exercise program. Past Medical and Surgical History 1) Hypertension 2) Hyperlipidemia 3) Vitamin D Deficiency 4) Osteopenia 5) Left meniscus repair in 2011. 6) Spinal Stenosis repair in 2006. 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 She has never smoked. She does not consume alcohol. Family History 1) Mom is at age 87 form Myocardial Infarction and Diverticulitis 2) Father is at age 87 from lung disease. 3) Sister is alive at age 74. Cardiac history includes pacemaker implantation at unknown age. Allergies Allergy/AdvReac Type Severity Reaction Status Date / Time No Known Allergies Allergy Verified 11/01/18 21:09 Home Medications Home Medications Medication Instructions Recorded Confirmed Type calcium citrate-vitamin D3 1 tab PO DAILY 11/01/18 11/01/18 History [Calcium Citrate + D] cholecalciferol (vitamin D3) 800 unit PO DAILY 11/01/18 11/01/18 History ibuprofen 200 mg PO Q6H PRN 11/01/18 11/01/18 History lisinopril 5 mg PO DAILY 11/01/18 11/01/18 History simvastatin 20 mg PO Q OTHER DAY 11/01/18 11/01/18 History Patient History Medical History Hypertension Family History Other Family history non-contributory Social History Preferred Language: Chilean Communication Ability: Effective Business Services Representative Required: No Beliefs That Will Affect Care: None Current Living Situation: Family Current Living Situation Comment: with son Feels Safe at Home: Yes Safety Concerns: Feels Safe At This Time Smoking Status: Never smoker Hx Alcohol Use: Yes Hx Substance Use: No Physical Exam Physical Exam: General: Well developed and well nourished female in no acute distress. HEENT: Negative Neck: supple with full carotid upstrokes. No bruits auscultated. JVD is flat at the level of the clavicle. No thyromegaly. Cardiac: regular rate and rhythm. S1 and S2 auscultated. No S3, S4, murmurs, rubs, gallops, lifts, heaves, or thrills. Lungs: clear to auscultation bilaterally. No rales, rhonchi or wheezes Abdomen: Soft and nontender. No bruits Extremities: intact radial and posterior tibial artery pulses bilaterally. No edema. Results & Data Vital Signs (Past 12 Hours) Vital Signs Temp Pulse Pulse Resp BP BP Pulse Ox 11/02/18 07:28 36.8 C 64 17 108/69 95 11/02/18 05:32 76 116/69 11/02/18 04:55 36.5 C 67 20 124/83 97 11/02/18 03:20 36.5 C 68 128/86 100 11/02/18 02:00 68 11/02/18 01:48 36.5 C 71 18 133/83 94 11/02/18 01:40 36.5 C 71 18 133/83 94 11/02/18 01:31 73 17 127/97 97 11/02/18 00:04 63 19 130/67 96 Laboratory Results Laboratory Results - last 24 hr 11/01/18 11/01/18 11/01/18 20:35 20:35 21:05 WBC 7.49 RBC 4.82 Hgb 14.0 Hct 41.3 MCV 85.7 MCH 29.0 MCHC 33.9 RDW Std Deviation 43.1 RDW Coeff of Denisha 13.7 Plt Count 212 MPV 11.1 H Immature Gran % (Auto) 0.0 Neut % (Auto) 66.6 Lymph % (Auto) 23.9 [place] % (Auto) 7.5 Eos % (Auto) 1.9 Baso % (Auto) 0.1 Immature Gran # (Auto) 0.00 Neut # (Auto) 4.99 Lymph # (Auto) 1.79 [place] # (Auto) 0.56 Eos # (Auto) 0.14 Baso # (Auto) 0.01 PT INR APTT PTT Ratio Sodium 142 Potassium 4.1 Chloride 112 H Carbon Dioxide 26 Anion Gap 4.0 BUN 16 Creatinine 1.23 H Est Cr Clr Drug Dosing 41.2 Est GFR ( Amer) 51.5 Est GFR (Non-Af Amer) 44.4 BUN/Creatinine Ratio 13.2 Glucose 102 H Estimat Average Glucose Hemoglobin A1c Calcium 9.3 Phosphorus 2.7 Magnesium 2.1 Total Bilirubin 0.4 AST 16 ALT 26 Alkaline Phosphatase 68 Troponin I 0.236 H* Total Protein 6.8 Albumin 3.8 Globulin 3.0 Albumin/Globulin Ratio 1.3 Triglycerides Cholesterol LDL Cholesterol, Calc VLDL Cholesterol, Calc HDL Cholesterol Cholesterol/HDL Ratio Lipase 131 TSH 1.090 Urine Color Yellow Urine Appearance Clear Urine pH 6.5 Ur Specific [place] 1.019 Urine Protein Negative Urine Glucose (UA) Negative Urine Ketones Negative Urine Blood Negative Urine Nitrite Negative Urine Bilirubin Negative Urine Urobilinogen Negative Ur Leukocyte Esterase 1+ H Urine WBC (Auto) 1-5 Urine RBC (Auto) 0-4 U Hyaline Cast (Auto) 0 U Epithel Cells (Auto) 5-10 H Urine Bacteria (Auto) Negative Hepatitis C Ab Screen 11/01/18 11/01/18 11/02/18 22:47 23:21 01:59 WBC RBC Hgb Hct MCV MCH MCHC RDW Std Deviation RDW Coeff of Denisha Plt Count MPV Immature Gran % (Auto) Neut % (Auto) Lymph % (Auto) [place] % (Auto) Eos % (Auto) Baso % (Auto) Immature Gran # (Auto) Neut # (Auto) Lymph # (Auto) [place] # (Auto) Eos # (Auto) Baso # (Auto) PT 11.4 INR 1.1 APTT 25.6 PTT Ratio 0.9 Sodium 139 Potassium 4.0 Chloride 110 H Carbon Dioxide 27 Anion Gap 2.0 L BUN 15 Creatinine 1.08 Est Cr Clr Drug Dosing 46.9 Est GFR ( Amer) 60.2 Est GFR (Non-Af Amer) 52.0 BUN/Creatinine Ratio 14.2 Glucose 101 H Estimat Average Glucose Hemoglobin A1c Calcium 9.0 Phosphorus Magnesium Total Bilirubin 0.5 AST 14 L ALT 23 Alkaline Phosphatase 69 Troponin I 0.395 H* 0.450 H* Total Protein 6.7 Albumin 3.7 Globulin 3.0 Albumin/Globulin Ratio 1.2 Triglycerides 100 Cholesterol 168 LDL Cholesterol, Calc 88 VLDL Cholesterol, Calc 20 HDL Cholesterol 60 Cholesterol/HDL Ratio 3 Lipase TSH Urine Color Urine Appearance Urine pH Ur Specific [place] Urine Protein Urine Glucose (UA) Urine Ketones Urine Blood Urine Nitrite Urine Bilirubin Urine Urobilinogen Ur Leukocyte Esterase Urine WBC (Auto) Urine RBC (Auto) U Hyaline Cast (Auto) U Epithel Cells (Auto) Urine Bacteria (Auto) Hepatitis C Ab Screen 11/02/18 11/02/18 11/02/18 05:57 05:57 05:57 WBC 4.89 RBC 4.42 Hgb 12.8 Hct 38.6 MCV 87.3 MCH 29.0 MCHC 33.2 RDW Std Deviation 44.5 RDW Coeff of Denisha 13.9 Plt Count 187 MPV 11.4 H Immature Gran % (Auto) 0.0 Neut % (Auto) 56.7 Lymph % (Auto) 36.0 [place] % (Auto) 5.1 Eos % (Auto) 2.0 Baso % (Auto) 0.2 Immature Gran # (Auto) 0.00 Neut # (Auto) 2.77 Lymph # (Auto) 1.76 [place] # (Auto) 0.25 Eos # (Auto) 0.10 Baso # (Auto) 0.01 PT 11.3 INR 1.1 APTT 25.2 PTT Ratio 0.9 Sodium Potassium Chloride Carbon Dioxide Anion Gap BUN Creatinine Est Cr Clr Drug Dosing Est GFR ( Amer) Est GFR (Non-Af Amer) BUN/Creatinine Ratio Glucose Estimat Average Glucose 117 Hemoglobin A1c 5.7 H Calcium Phosphorus Magnesium Total Bilirubin AST ALT Alkaline Phosphatase Troponin I Total Protein Albumin Globulin Albumin/Globulin Ratio Triglycerides Cholesterol LDL Cholesterol, Calc VLDL Cholesterol, Calc HDL Cholesterol Cholesterol/HDL Ratio Lipase TSH Urine Color Urine Appearance Urine pH Ur Specific [place] Urine Protein Urine Glucose (UA) Urine Ketones Urine Blood Urine Nitrite Urine Bilirubin Urine Urobilinogen Ur Leukocyte Esterase Urine WBC (Auto) Urine RBC (Auto) U Hyaline Cast (Auto) U Epithel Cells (Auto) Urine Bacteria (Auto) Hepatitis C Ab Screen 11/02/18 11/02/18 05:57 09:54 WBC RBC Hgb Hct MCV MCH MCHC RDW Std Deviation RDW Coeff of Denisha Plt Count MPV Immature Gran % (Auto) Neut % (Auto) Lymph % (Auto) [place] % (Auto) Eos % (Auto) Baso % (Auto) Immature Gran # (Auto) Neut # (Auto) Lymph # (Auto) [place] # (Auto) Eos # (Auto) Baso # (Auto) PT INR APTT PTT Ratio Sodium Potassium Chloride Carbon Dioxide Anion Gap BUN Creatinine Est Cr Clr Drug Dosing Est GFR ( Amer) Est GFR (Non-Af Amer) BUN/Creatinine Ratio Glucose Estimat Average Glucose Hemoglobin A1c Calcium Phosphorus Magnesium Total Bilirubin AST ALT Alkaline Phosphatase Troponin I 0.242 H* Total Protein Albumin Globulin Albumin/Globulin Ratio Triglycerides Cholesterol LDL Cholesterol, Calc VLDL Cholesterol, Calc HDL Cholesterol Cholesterol/HDL Ratio Lipase TSH Urine Color Urine Appearance Urine pH Ur Specific [place] Urine Protein Urine Glucose (UA) Urine Ketones Urine Blood Urine Nitrite Urine Bilirubin Urine Urobilinogen Ur Leukocyte Esterase Urine WBC (Auto) Urine RBC (Auto) U Hyaline Cast (Auto) U Epithel Cells (Auto) Urine Bacteria (Auto) Hepatitis C Ab Screen Neg Troponin I continues to gradually increase. 0.236 on 11/01 at 20:35 0.395 on 11/01 at 23:21 0.450 on 11/02 at 01:59 Lipid Panel well controlled on home Simvastatin as above. Creatinine mildly elevated on admission. Has decreased to WNL since. Diagnostic Findings Echocardiogram on 11/02/2018: normal LV function with EF of 60-65%, no regional wall motion abnormalities, and no obvious valvular pathology. ECG Additional Comments: Original EKG shows NSR with incomplete RBBB and early repolarization in lead V2. Serial EKG's since then are unchanged. EKG from December 2013 showed NSR. Telemetry overnight shows NSR with ventricular rate in 60-70s.
[2018-11-02] MEDS: Heparin IV Low Dose *NO* Bolus IV SCH ×2 (11:45→11:51)
[2018-11-02 12:43] LABS: Partial Thromboplastin Time 26.8 Seconds (21.0-31.0)
[2018-11-03] MEDS ORDERED: SIMVASTATIN 20 MG TAB PO SCH (21:00)
--- NOTE | 2018-11-06 12:11 | Discharge Summary ---
Date of Service date of admission - 11/02/18 date of discharge - 11/02/18 Admission HPI Per Admitting Provider The patient is a 68-year-old female with a PMH including hypertension and hyperlipidemia who presents to the emergency department with the acute onset of headache, dizziness and palpitations about 1 hour prior to arrival. The palpitations were quite prominent and her heart beat was very rapid. She had generally been feeling weak yesterday. The weakness began while she was at work. She then reports that when walking her dog outside, she felt like she was almost going to pass out. She did not have any focal numbness, weakness or tingling in arms or legs, although she does report having some light tingling equally in both feet at this time. She reports headaches that began about 1 month ago. She has not had any any recent change in her dietary intake. She has not had any recent travels or sick exposures. Principal Diagnosis palpitations, tachyarrhythmia - additional work-up needed Discharge Exam Constitutional WD/WN, vitals as above no acute distress ENMT external ear and nose normal, oropharynx normal Respiratory normal respiratory effort, lungs clear to auscultation Cardiovascular RRR, no murmur, no edema Heart Sounds: normal S1 and normal S2 Vessels: posterior tibial pulses present and dorsalis pedis pulses present; no JVD Gastrointestinal (Abdomen) normal bowel sounds, soft, nontender, no hepatosplenomegaly Neurologic no focal motor deficits Psychiatric A+Ox3, euthymic affect Discharge Data Allergies Allergy/AdvReac Type Severity Reaction Status Date / Time No Known Allergies Allergy Verified 11/01/18 21:09 Consultations cardiology - Bulmaro Laws MD Ordered Studies 1. CTA chest: IMPRESSION: 1. No pulmonary emboli identified. 2. No acute intrathoracic findings. 3. Mild cardiomegaly. 4. Apparent abnormal mediastinal contour on chest radiograph was due to normal structures. Normal caliber thoracic aorta. 2. CT head: no acute process. 3. echocardiogram: * EF 60-65% * no valvular abnormalities * no regional wall motion abnormalities 4. Exercise stress echocardiogram: normal, no inducible wall motion a bnormalities. Poor exercise tolerance. Hospital Course (1) Palpitations: Etiology of such uncertain. Telemetry during her brief stay was normal. She has had discrete episodes of significant palpitations for a long time and it was suspected by Dr. Laws, cardiology, that tachyarrhythmia was the likely cause of all of her presenting symptoms. Possibilities include SVT, PAF, etc. Echo was structurally normal. TSH was normal. She will be set up for a 30-day event monitor through Dr. Laws's office. This will be mailed to her home. (2) Elevated troponin: Peak troponin was 0.450. Cardiology felt the troponin elevation was due to myocardial demand ischemia in the setting of some form of arrhythmia rather than true ACS. Of note - exercise stress echocardiogram was negative for ischemia. (3) Near syncope: Likely due to arrhythmia - see above discussion. (4) Hypertension: Well-controlled during her stay. Due to her palpitations her low-dose BRITTANI was stopped and in colin metoprolol 12.5 mg BID was substituted. (5) Prediabetes: Hemoglobin a1c 5.7%. She was notified of this lab finding. 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 Follow-up with PCP for surveillance. Total Time Total Time Spent Total Time Spent (In Minutes): 40 Total Time Includes: Examination of the Patient, Discharge Planning, Medication Reconciliation and Communication With Other Providers Discharge Plan Discharge Items Patient Disposition: Home - Self-Care Reason For Visit: Palpitations, rapid heart beating, dizziness Discharge Diagnosis: palpitations - etiology uncertain; 30-day heart monitor to be set up to capture these events. NORMAL/NEGATIVE STRESS TEST (low suspicion you have blocked arteries in your heart). Discharge Goals: Diagnostic testing Activity: Resume your previous activity Non-emergency contact: Primary Care Provider Call non-emergency contact if: you have any medication questions and your symptoms worsen Follow-up/Referrals: Heike Kessler CRNP [Primary Care Provider] - 11/13/18 10:30 am (follow up a ppointment with your primary care provider) Dheeraj Laws MD [Physician] - (please call Dr. Laws's office if you have NOT received your 30-day event monitor in the mail within 7 business days) Diet: Heart Healthy Add Provider Instructions: From Sheldon Garber, hospitalist - You were admitted after having several episodes of palpitations/rapid heart b eating, dizziness, and simply feeling poorly. Unfortunately we did not capture on your heart monitoring while you were here the cause of the rapid heart beating. You were seen by cardiology, Dr. Laws, who performed a stress test and echocardiogram (heart ultrasound). These tests were NORMAL. A normal stress test suggests that your symptoms were NOT due to a blocked artery in your heart. At this time we feel that your symptoms were due to a rapid, irregular heart rhythm. We are hoping to capture this on an outpatient "30-day event monitor." This will be mailed to your home with instructions over the next several days. Please limit caffeinated beverages to 2 drinks/day. Please STOP your lisinopril. In its place please START metoprolol 12.5mg twice a day. This medication may help your palpitations/rapid heart beating when you have the spells. This medication was sent to your pharmacy for you. Lastly, your hemoglobin a1c - a screening blood test for diabetes - came back slightly high at 5.7%. This means you are at the very beginnings of "pre-diabetes." Please talk with Ms Kessler in more detail about ways you can shen off full-blown diabetes. Follow-up -- see Victoria within 1 week. Return to [facility] if -- * you have spells of palpitations/rapid heart beating that last longer than a few minutes or don't resolve on their own * you have spells that cause extreme dizziness or actual fainting * you develop chest pain or shortness of breath * any other concerns Prescriptions: New metoprolol tartrate 25 mg tablet 12.5 mg PO BID Qty: 60 RF: 2 Continued simvastatin 20 mg tablet 20 mg PO Q OTHER DAY RF: 0 ibuprofen 200 mg Tablet 200 mg PO Q6H PRN (Reason: Pain) RF: 0 cholecalciferol (vitamin D3) 400 unit Tablet 800 unit PO DAILY RF: 0 calcium citrate-vitamin D3 [Calcium Citrate + D] 315-200 mg-unit Tablet 1 tab PO DAILY RF: 0 Discontinued lisinopril 5 mg tablet 5 mg PO DAILY RF: 0 Stand-Alone Forms: [facility] Discharge Orders: Discharge Order (Routine); Ordered 11/02/18 Ordered By: Sheldon Garber Admission Data Admit Date/Time: 11/02/18 00:18 Attending Provider: Sheldon Garber Admit Provider: Oniel Kramer Primary Care Provider: Heike Kessler Other Providers: Dheeraj Laws Service: Telemetry Medical Other Interventions: Discharge Summary Assessment (RN) Last Done: 11/02/18 16:45 Pending Studies at Discharge: No DC Date/Time DO NOT enter until pt leaves facility: 11/02/18 17:29
== END 2018-11-02 17:29 | disposition home or self-care (01) | DRG 310 ==
LOC: ED 19:59 → 2N 11-02 00:18 → SUATTDRO 11-02 00:18 → 2N 11-02 01:31
DX: R00.2 Palpitations; I10 Essential (primary) hypertension; E78.5 Hyperlipidemia, unspecified; R55 Syncope and collapse; Z79.899 Other long term (current) drug therapy; R79.89 Other specified abnormal findings of blood chemistry

== ENCOUNTER 2021-09-07 19:03 | Observation (INO) ==
[2021-09-07] MEDS ORDERED: ADENOSINE IV SOLN 3 MG/ML 2 ML VIAL IV ONE ×2 (19:14)
[2021-09-07 21:01] LABS: Basophils # (auto) 0.01 K/uL (0-0.2); Basophils % (auto) 0.1 %; Eosinophils # (auto) 0.08 K/uL (0-0.5); Hematocrit (blood only) 42.4 % (37-47); Hemoglobin 14.1 g/dL (12.0-16.0); Immature Granulocytes # (auto) 0.01 K/uL (0.00-0.02); Immature Granulocytes % (auto) 0.1 %; Lymphocytes # (auto) 1.72 K/uL (1.2-3.4); Mean Corpuscular Hemoglobin 29.9 pg (25-34); Mean Corpuscular Hgb Conc 33.3 g/dL (32-36); Mean Corpuscular Volume 89.8 fL (80-100); Mean Platelet Volume 11.2 fL (7.4-10.4); Monocytes # (auto) 0.44 K/uL (0.11-0.59); Monocytes % (auto) 5.4 %; Neutrophils # (auto) 5.93 K/uL (1.4-6.5); Neutrophils % (auto) 72.4 %; Platelet Count 275 K/uL (130-400); RDW Coefficient of Variation 14.2 % (11.5-14.5); RDW Standard Deviation 47.3 fL (36.4-46.3); Red Blood Count 4.72 M/uL (4.2-5.4); White Blood Count 8.19 K/uL (4.8-10.8)
[2021-09-07 21:08] LABS: Alanine Aminotransferase 21 U/L (7-52); Albumin Globulin Ratio 1.5 (0.9-2); Albumin Level 4.1 gm/dl (3.4-5.0); Alkaline Phosphatase 57 U/L (34-104); Anion Gap 8 (3-11); Aspartate Aminotransferase 17 U/L (13-39); BUN Creatinine Ratio 15.5 (10-20); Bilirubin,Total 0.4 mg/dl (0.2-1.0); Blood Urea Nitrogen 16 mg/dl (6-23); Calcium 9.2 mg/dl (8.5-10.1); Carbon Dioxide 25 mmol/L (21-32); Chloride 107 mmol/L (98-107); Est GFR (African American) 62.5 ml/min; Est GFR (Non-African American) 53.9 ml/min; Globulin 2.7 gm/dl (2.5-4.0); Glucose 177 mg/dl (70-99(Fasting)); Magnesium 1.9 mg/dl (1.7-2.4); Phosphorus 3.6 mg/dl (2.5-4.9); Potassium 4.1 mmol/L (3.5-5.1); Sodium 140 mmol/L (136-145); Total Protein 6.8 gm/dl (6.0-8.3)
[2021-09-07 21:25] LABS: Troponin I 0.08 ng/ml (0-0.04)
--- NOTE | 2021-09-07 23:04 | History & Physical Report ---
Date of Service September 07, 2021 Assessment & Plan (1) Paroxysmal supraventricular tachycardia: Plan: Patient had an evaluation in 2019 for similar episode with escalation of troponin to 0.45, at that time had negative echo negative stress echo was postop and outpatient event monitor unclear whether this ever was accomplished. Patient was given additional dose of metoprolol tartrate 12.5 in the ER an echocardiogram is ordered she does have some increased lower extremity edema and she will be given a gram magnesium as her magnesium is 1.9 all other studies such as TSH etc. are in good repair Patient Dr. Dheeraj Laws for future outpatient management and to validate any medication changes inpatient (2) Hypertension: Plan: Patient typically takes metoprolol tartrate 12.5 twice daily in the past has been on an BRITTANI inhibitor metoprolol be increased to 25 twice daily titrate (3) Hyperlipidemia LDL goal <70: Plan: Continue simvastatin 20 (4) DVT prophylaxis: Plan: Early ambulation will be DVT prevention Patient is a full code History of Present Illness Primary Care Provider: LUIS Alvarenga Patient states she was in her normal state of health at work and had a good day at work. 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 Upon coming home she said she just did not feel well she was sort of slightly dizzy and nauseated chest her son to check her blood pressure. The blood pressure machine would not register subsequently her son then felt for her pulse which he felt was rapid and brought the patient to the emergency department where she is found to be in SVT about 160 she did receive adenosine and now she is in sinus rhythm around 60. She does not have any new medication changes did not skip her metoprolol she cannot recall whether in 2019 when she had a similar presentation if she did complete outpatient cardiac monitoring as mentioned in her discharge summary. She says since that time she is not had any additional symptoms that she knows of. She also denies any anginal symptoms or heart failure symptoms preceding these events. She does have some increased lower extremity edema which is trace at best but seems to be different when I brought up to her. She denies taking any stimulants increased caffeine or feeling ill prior to this event At the time of admission her Covid testing is pending Allergies Allergy/AdvReac Type Severity Reaction Status Date / Time No Known Allergies Allergy Verified 09/07/21 21:36 Home Medications Medication Instructions Recorded Confirmed Type calcium citrate 315 mg-vitamin D3 1 tab PO BID tab 03/19/19 09/07/21 History 5 mcg (200 unit) tablet (Calcium Citrate + D) metoprolol tartrate 25 mg tablet 12.5 mg PO BID #90 tab 03/11/21 09/07/21 Rx cholecalciferol (vitamin D3) 50 2,000 units PO QAM 06/07/21 09/07/21 History mcg (2,000 unit) capsule fexofenadine 180 mg tablet 180 mg PO QAM PRN 06/07/21 09/07/21 History glucosamine-chondroitin 250 mg-200 1 tab PO BID 06/07/21 09/07/21 History mg tablet (Osteo Bi-Flex) hydrocodone 5 mg-acetaminophen 325 1 tab PO Q6H PRN #30 tab 08/04/21 09/07/21 Rx mg tablet simvastatin 20 mg tablet 20 mg PO QDD 08/20/21 09/07/21 History Past Med/Surg History Medical History History of left breast cancer History of skin cancer Hyperlipidemia LDL goal <70 Hypertension Osteoarthritis Paroxysmal supraventricular tachycardia Postmenopausal status Sensorineural hearing loss Spinal stenosis Surgical History History of arthroscopy of left knee History of colonoscopy History of left breast biopsy History of lumbar spinal fusion History of right knee surgery History of tooth extraction Hx of bilateral cataract extraction Family History Mother Myocardial infarction Other Family history non-contributory No family history of adverse response to anesthesia Denies family history of Ovarian cancer Prostate cancer Breast cancer Colorectal cancer Social History Smoking Status: Never smoker Second Hand Exposure: No; Hx Alcohol Use: No Hx Substance Use: No Preferred Language: Turkish Communication Ability: Effective Lens Edge Grinder Machine Required: No Beliefs That Will Affect Care: None marital status: Current Living Situation: Family Current Living Situation Comment: with son, sister, son in law, friend current occupational status: employed and 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 How many Children do You have: 2 Other Information That Helps Us Care for You: No Feels Safe at Home: Yes Safety Concerns: Feels Safe At This Time Childhood Exposure to Second-Hand Smoke: Yes caffeine: No Dental Care, Regularly: Yes Physical Activity Frequency: Daily Seatbelt Use: always Sunscreen Use: Yes (sometimes) Assistive Devices: Glasses Review of Systems Review of Systems: Complete resolution of symptoms at this time no headache, no visual changes no speech or swallowing issues no chest pain, pressure or palpitations states she has a warm feeling around her heart no shortness of breath, cough or wheezes no abdominal pain, nausea or vomiting, diarrhea or constipation no dysuria, hematuria or frequency no focal joint pain does not admit to lower extremity swelling but this was foun d on examination today no back pain, CVA tenderness or radicular pain no bruising, bleeding or rashes no focal signs of weakness or numbness or altered sensation no complaints of anxiety or depression.. Physical Exam Physical Exam: The patient appeared well nourished and normally developed. Vital signs as documented. Head exam is normocephalic atraumatic Neck is without JVD, thyromegaly, or carotid bruits. Lungs are clear to auscultation, no focal loss of breath sounds Cardiac exam, Rhythm is regular.. No murmurs, rubs or gallops. Abdominal exam reveals normal bowel sounds, soft non tender, no masses Extremities are trace edematous and both pedal pulses are present Neurologic exam is alert and oriented, no focal loss of strength or sensation Skin is without bruises or rashes Psychologically is without concerns for anxiety or depression.. Results & Data Results & Data ([facility]) Vital Signs (Past 12 Hours) Vital Signs Temp Pulse Resp BP Pulse Ox 09/07/21 22:15 63 21 146/78 H 94 09/07/21 22:00 59 L 15 118/79 97 09/07/21 21:45 64 17 128/79 94 09/07/21 21:31 114/73 97 09/07/21 21:30 94 09/07/21 21:16 97 09/07/21 21:00 66 16 108/77 94 09/07/21 20:15 70 118/79 09/07/21 19:45 72 16 120/79 94 09/07/21 19:40 78 19 95 09/07/21 19:35 76 20 95 09/07/21 19:30 76 19 123/82 93 09/07/21 19:25 78 19 95 09/07/21 19:20 88 14 96 09/07/21 19:16 160 H 19 114/96 94 09/07/21 19:15 163 H 23 09/07/21 19:14 162 H 23 09/07/21 19:07 96.4 F L 175 H 18 95 09/07/21 19:04 96 Diagnostic Findings Chest x-ray looks unremarkable compared to previous ECG Additional Comments: First EKG showed a narrow complex rapid cardiac rhythm appears to be SVT rate of 161 subsequently shows normal sinus rhythm in the 70s without ST or T wave changes PG Care Time/CCT Total # of Minutes Spent Total Time Spent with Patient: Total time spent is greater than 50% in coordination of care (as documented) at patient's floor/unit and/or counseling patient: Coding Level of Care Code INT OBSERVATION CARE 50M LVL 2 Diagnoses Paroxysmal supraventricular tachycardia I47.1 Hypertension I10 Hyperlipidemia LDL goal <70 E78.5 DVT prophylaxis Z29.9
[2021-09-07] MEDS ORDERED: METOPROLOL TARTRATE 25 MG TAB PO ONE (23:07)
[2021-09-07] MEDS ORDERED: MAGNESIUM SULFATE / D5W 1 GM/100 ML BAG IV ONE (23:07)
[2021-09-07] MEDS ORDERED: ONDANSETRON INJ 2 MG/ML 2 ML VIAL IV PRN (23:08)
[2021-09-07] MEDS ORDERED: ACETAMINOPHEN 325 MG TAB PO PRN (23:08)
[2021-09-07] MEDS ORDERED: ALUMINUM/MAGNESIUM SUSP 30 ML UDC PO PRN (23:08)
[2021-09-08] MEDS ORDERED: METOPROLOL TARTRATE 1 MG/ML VIAL IV PRN (00:23)
[2021-09-08] MEDS ORDERED: FEXOFENADINE HCL 180 MG TAB PO PRN (00:23)
[2021-09-08] MEDS ORDERED: HYDROCODONE/ACETAMOPHEN 5/325MG TAB PO PRN (00:23)
--- NOTE | 2021-09-08 01:38 | Emergency Department Note ---
Impression & Plan SVT (supraventricular tachycardia), Elevated troponin, Hypertension, Obesity (BMI 30-39.9) ED Provider Note CHIEF COMPLAINT: Racing heart HISTORY OF PRESENT ILLNESS: This 71-year-old female patient presents to the emergency department with complaints of a racing heart that began 2 hours [employer]. Patient states she has had a history of similar but it has been several years. Pt has seen cardiology in the past. Patient denies any recent illnesses, fever, cough, vomiting or diarrhea. She denies any significant chest pain at this time but does admit to some shortness of breath with exertion. REVIEW OF SYSTEMS: A review of systems was performed with positives and pertinent negatives listed in the history of present illness. 10 systems were reviewed and are otherwise negative. ALLERGIES: see below MEDICATIONS: see below PMH: see below SOCIAL HISTORY: see below DDx: Premature contractions, electrolyte abnormality, cardiac dysrhythmia, thyroid dysfunction, pulmonary embolism, infection, gastrointestinal, as well as other pathologies. PHYSICAL EXAM: Vital signs reviewed. General: Well-appearing 71 yo female, in no significant distress. HEENT: No scleral icterus, PERRLA, neck supple. Atraumatic. Cardiovascular: Tachycardic, regular Pulmonary: Clear to auscultation bilaterally, normal work of breathing. Abdomen: Soft, obese, nontender, nondistended, positive bowel sounds. Musculoskeletal: Atraumatic, no peripheral edema. Neurologic: Patient awake alert and oriented x 3 Skin: Warm, dry, no rash EMERGENCY DEPARTMENT COURSE/MDM: This patient was evaluated and appeared to be in no significant distress. IV access was obtained and laboratory work was drawn. An order for cardiac monitoring was placed and the patient is noted to be in SVT bpm. Vagal maneuvers were attempted without success. Patient was given IV adenosine 6 mg with conversion to normal sinus rhythm. She was hydrated with normal saline solution. Patient's laboratory work reveals a troponin of 0.08, likely demand mediated. Repeat troponin was performed 2 hours later and is rising at 0.17. Case was discussed with the hospitalist, Dr. Duarte who will evaluate the patient for admission and further management. MONITORING: An order for cardiac monitoring was placed and the patient is noted to be in an SVT at 162 beats per minute. RADIOLOGY: see below EKG: SVT at 161 bpm LVH, QTc 441, no PVC, no PAC, normal ST segments DISPOSITION: admit I have personally spent 31 minutes of critical care time in the direct management of this patient. This was a life/limb threatening event. This 31 minutes is in excess of all separately billable procedures. Past Med/Surg History Medical History History of left breast cancer diagnosed 1995--sx/radiation History of skin cancer pt unsure what kind, removed in office Hyperlipidemia LDL goal <70 Hypertension Osteoarthritis Paroxysmal supraventricular tachycardia on metoprolol--follows with Dr. Laws Postmenopausal status Sensorineural hearing loss Spinal stenosis Surgical History History of arthroscopy of left knee meniscus repair History of colonoscopy History of left breast biopsy malignant History of lumbar spinal fusion History of right knee surgery History of tooth extraction Hx of bilateral cataract extraction Family History Mother Myocardial infarction Other Family history non-contributory No family history of adverse response to anesthesia Denies family history of Ovarian cancer Prostate cancer Breast cancer Colorectal cancer Social History Smoking Status: Never smoker Second Hand Exposure: No; Hx Alcohol Use: No Hx Substance Use: No Preferred Language: Romanian Communication Ability: Effective Gas Systems Worker Required: No Beliefs That Will Affect Care: None marital status: Current Living Situation: Family Current Living Situation Comment: with son, sister, son in law, friend current occupational status: employed and 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 [employer] How many Children do You have: 2 Other Information That Helps Us Care for You: No Feels Safe at Home: Yes Safety Concerns: Feels Safe At This Time Childhood Exposure to Second-Hand Smoke: Yes caffeine: No Dental Care, Regularly: Yes Physical Activity Frequency: Daily Seatbelt Use: always Sunscreen Use: Yes (sometimes) Assistive Devices: Glasses Allergies Allergies Allergy/AdvReac Type Severity Reaction Status Date / Time No Known Allergies Allergy Verified 09/07/21 21:36 Home Meds Home Medications Medication Instructions Recorded Confirmed calcium citrate 315 mg-vitamin D3 1 tab PO BID tab 03/19/19 09/07/21 5 mcg (200 unit) tablet (Calcium Citrate + D) cholecalciferol (vitamin D3) 50 2,000 units PO QAM 06/07/21 09/07/21 mcg (2,000 unit) capsule fexofenadine 180 mg tablet 180 mg PO QAM PRN 06/07/21 09/07/21 glucosamine-chondroitin 250 mg-200 1 tab PO BID 06/07/21 09/07/21 mg tablet (Osteo Bi-Flex) simvastatin 20 mg tablet 20 mg PO QDD 08/20/21 09/07/21 Previous Rx's Medication Instructions Recorded metoprolol tartrate 25 mg tablet 12.5 mg PO BID #90 tab 03/11/21 hydrocodone 5 mg-acetaminophen 325 1 tab PO Q6H PRN #30 tab 08/04/21 mg tablet Results & Data (ED) Vital Signs Vital Signs - 24 hr 09/07/21 19:04 09/07/21 19:07 09/07/21 19:14 Temperature 35.8 C L Temperature Source Temporal Artery Scan Pulse Rate 175 H 162 H Pulse Rate from SpO2 Sensor Respiratory Rate 18 23 Respiratory Effort / Characteristics Non-Labored Spontaneous Respiratory Depth Normal Blood Pressure Blood Pressure Mean Pulse Oximetry 96 95 Oxygen Delivery Method Room Air Room Air Sepsis Recent Fever Within 48 Hours No Sepsis New/Unexplained Change in Mental Status No Sepsis Action Taken by Nursing Physician Notified 09/07/21 19:15 09/07/21 19:16 09/07/21 19:20 Temperature Temperature Source Pulse Rate 163 H 160 H 88 Pulse Rate from SpO2 Sensor Respiratory Rate 23 19 14 Respiratory Effort / Characteristics Respiratory Depth Blood Pressure 114/96 Blood Pressure Mean 102 Pulse Oximetry 94 96 Oxygen Delivery Method Room Air Room Air Sepsis Recent Fever Within 48 Hours Sepsis New/Unexplained Change in Mental Status Sepsis Action Taken by Nursing 09/07/21 19:25 09/07/21 19:30 09/07/21 19:35 Temperature Temperature Source Pulse Rate 78 76 76 Pulse Rate from SpO2 Sensor Respiratory Rate 19 19 20 Respiratory Effort / Characteristics Respiratory Depth Blood Pressure 123/82 Blood Pressure Mean 95 Pulse Oximetry 95 93 95 Oxygen Delivery Method Room Air Room Air Room Air Sepsis Recent Fever Within 48 Hours Sepsis New/Unexplained Change in Mental Status Sepsis Action Taken by Nursing 09/07/21 19:40 09/07/21 19:45 09/07/21 20:15 Temperature Temperature Source Pulse Rate 78 72 70 Pulse Rate from SpO2 Sensor Respiratory Rate 19 16 Respiratory Effort / Characteristics Respiratory Depth Blood Pressure 120/79 118/79 Blood Pressure Mean 92 92 Pulse Oximetry 95 94 Oxygen Delivery Method Room Air Sepsis Recent Fever Within 48 Hours Sepsis New/Unexplained Change in Mental Status Sepsis Action Taken by Nursing 09/07/21 21:00 09/07/21 21:16 09/07/21 21:30 Temperature Temperature Source Pulse Rate 66 Pulse Rate from SpO2 Sensor 68 59 L Respiratory Rate 16 Respiratory Effort / Characteristics Respiratory Depth Blood Pressure 108/77 Blood Pressure Mean 87 Pulse Oximetry 94 97 94 Oxygen Delivery Method Room Air Room Air Sepsis Recent Fever Within 48 Hours Sepsis New/Unexplained Change in Mental Status Sepsis Action Taken by Nursing 09/07/21 21:31 09/07/21 21:45 09/07/21 22:00 Temperature Temperature Source Pulse Rate 64 59 L Pulse Rate from SpO2 Sensor 66 Respiratory Rate 17 15 Respiratory Effort / Characteristics Respiratory Depth Blood Pressure 114/73 128/79 118/79 Blood Pressure Mean 86 95 92 Pulse Oximetry 97 94 97 Oxygen Delivery Method Room Air Room Air Room Air Sepsis Recent Fever Within 48 Hours Sepsis New/Unexplained Change in Mental Status Sepsis Action Taken by Nursing 09/07/21 22:15 09/07/21 22:30 09/07/21 22:45 Temperature Temperature Source Pulse Rate 63 59 L 60 Pulse Rate from SpO2 Sensor Respiratory Rate 21 19 19 Respiratory Effort / Characteristics Respiratory Depth Blood Pressure 146/78 H 127/79 131/80 Blood Pressure Mean 100 95 97 Pulse Oximetry 94 93 94 Oxygen Delivery Method Room Air Room Air Room Air Sepsis Recent Fever Within 48 Hours Sepsis New/Unexplained Change in Mental Status Sepsis Action Taken by Nursing 09/07/21 23:00 Temperature Temperature Source Pulse Rate 65 Pulse Rate from SpO2 Sensor Respiratory Rate 20 Respiratory Effort / Characteristics Respiratory Depth Blood Pressure Blood Pressure Mean Pulse Oximetry 95 Oxygen Delivery Method Room Air Sepsis Recent Fever Within 48 Hours Sepsis New/Unexplained Change in Mental Status Sepsis Action Taken by Longterm Medications Current Medication List: was personally reviewed by me Laboratory Data Attestation: I reviewed the patient's lab results. Result diagrams: 09/07/21 19:09 09/07/21 19:09 Lab Results 09/07/21 09/07/21 09/07/21 Range/Units 19:09 19:09 19:09 WBC 8.19 (4.8-10.8) K/uL RBC 4.72 (4.2-5.4) M/uL Hgb 14.1 (12.0-16.0) g/dL Hct 42.4 (37-47) % MCV 89.8 (80-100) fL MCH 29.9 (25-34) pg MCHC 33.3 (32-36) g/dL RDW Std Deviation 47.3 H (36.4-46.3) fL RDW Coeff of Denisha 14.2 (11.5-14.5) % Plt Count 275 (130-400) K/uL MPV 11.2 H (7.4-10.4) fL Immature Gran % (Auto) 0.1 % Neut % (Auto) 72.4 % Lymph % (Auto) 21.0 % Gentry % (Auto) 5.4 % Eos % (Auto) 1.0 % Baso % (Auto) 0.1 % Neut # (Auto) 5.93 (1.4-6.5) K/uL Lymph # (Auto) 1.72 (1.2-3.4) K/uL Gentry # (Auto) 0.44 (0.11-0.59) K/uL Eos # (Auto) 0.08 (0-0.5) K/uL Baso # (Auto) 0.01 (0-0.2) K/uL Immature Gran # (Auto) 0.01 (0.00-0.02) K/uL Sodium 140 (136-145) mmol/L Potassium 4.1 (3.5-5.1) mmol/L Chloride 107 (98-107) mmol/L Carbon Dioxide 25 (21-32) mmol/L Anion Gap 8 (3-11) BUN 16 (6-23) mg/dl Creatinine 1.03 (0.6-1.2) mg/dl Est Cr Clr Drug Dosing Not Reportable Est GFR ( Amer) 62.5 ml/min Est GFR (Non-Af Amer) 53.9 ml/min BUN/Creatinine Ratio 15.5 (10-20) Glucose 177 H (70-99(Fasting)) mg/dl Calcium 9.2 (8.5-10.1) mg/dl Phosphorus 3.6 (2.5-4.9) mg/dl Magnesium 1.9 (1.7-2.4) mg/dl Total Bilirubin 0.4 (0.2-1.0) mg/dl AST 17 (13-39) U/L ALT 21 (7-52) U/L Alkaline Phosphatase 57 (34-104) U/L Troponin I 0.08 H* (0-0.04) ng/ml Total Protein 6.8 (6.0-8.3) gm/dl Albumin 4.1 (3.4-5.0) gm/dl Globulin 2.7 (2.5-4.0) gm/dl Albumin/Globulin Ratio 1.5 (0.9-2) TSH 1.987 (0.300-4.500) uIu/ml SARS-CoV-2, RNA, NAAT (NEGATIVE) 09/07/21 09/07/21 Range/Units 21:53 22:50 WBC (4.8-10.8) K/uL RBC (4.2-5.4) M/uL Hgb (12.0-16.0) g/dL Hct (37-47) % MCV (80-100) fL MCH (25-34) pg MCHC (32-36) g/dL RDW Std Deviation (36.4-46.3) fL RDW Coeff of Denisha (11.5-14.5) % Plt Count (130-400) K/uL MPV (7.4-10.4) fL Immature Gran % (Auto) % Neut % (Auto) % Lymph % (Auto) % Gentry % (Auto) % Eos % (Auto) % Baso % (Auto) % Neut # (Auto) (1.4-6.5) K/uL Lymph # (Auto) (1.2-3.4) K/uL Gentry # (Auto) (0.11-0.59) K/uL Eos # (Auto) (0-0.5) K/uL Baso # (Auto) (0-0.2) K/uL Immature Gran # (Auto) (0.00-0.02) K/uL Sodium (136-145) mmol/L Potassium (3.5-5.1) mmol/L Chloride (98-107) mmol/L Carbon Dioxide (21-32) mmol/L Anion Gap (3-11) BUN (6-23) mg/dl Creatinine (0.6-1.2) mg/dl Est Cr Clr Drug Dosing Est GFR ( Amer) ml/min Est GFR (Non-Af Amer) ml/min BUN/Creatinine Ratio (10-20) Glucose (70-99(Fasting)) mg/dl Calcium (8.5-10.1) mg/dl Phosphorus (2.5-4.9) mg/dl Magnesium (1.7-2.4) mg/dl Total Bilirubin (0.2-1.0) mg/dl AST (13-39) U/L ALT (7-52) U/L Alkaline Phosphatase (34-104) U/L Troponin I 0.17 H* (0-0.04) ng/ml Total Protein (6.0-8.3) gm/dl Albumin (3.4-5.0) gm/dl Globulin (2.5-4.0) gm/dl Albumin/Globulin Ratio (0.9-2) TSH (0.300-4.500) uIu/ml SARS-CoV-2, RNA, NAAT NEGATIVE (NEGATIVE) Administered Medications Discontinued Medications Adenosine (Adenosine Iv Soln 3 Mg/Ml 2 Ml Vial) Confirm Administered Dose 6 mg IV .STK-MED ONE Stop: 09/07/21 19:15 Last Admin: 09/07/21 19:28 Dose: Not Given Documented by: [id number] Adenosine (Adenosine Iv Soln 3 Mg/Ml 2 Ml Vial) Confirm Administered Dose 6 mg IV .STK-MED ONE Stop: 09/07/21 19:15 Last Admin: 09/07/21 19:17 Dose: 6 mg Documented by: [id number] Magnesium Sulfate/Dextrose (Magnesium Sulfate / D5w) 1 gm in 100 mls @ 50 mls/hr IV ONE ONE Stop: 09/08/21 01:06 Last Admin: 09/07/21 23:42 Dose: 50 mls/hr Documented by: [id number] Metoprolol Tartrate (Metoprolol Tartrate 25 Mg Tab) 12.5 mg PO ONE ONE Stop: 09/07/21 23:08 Last Admin: 09/07/21 23:41 Dose: 12.5 mg Documented by: [id number] Imaging Data Attestation: I personally reviewed and interpreted this imaging study as follows: My Impression: Chest x-ray to my interpretation reveals no evidence of focal lung consolidation or failure. Blood Pressure Blood Pressure Findings: Elevated blood pressure Blood Pressure Disposition: further management by hospitalist Discharge Plan Visit Data Chief Complaint: Chest Pain Stated Complaint: SVT HEART EPISODES, CHEST PAIN, TACHYCARDIA ED Provider: Leona Evans Discharge Problem: SVT (supraventricular tachycardia), Elevated troponin, Hypertension, Obesity (BMI 30-39.9) Patient Disposition: Admitted As Inpatient Discharge Instructions Interventions: ED Discharge Assessment Last Done: 09/08/21 00:26 Discharge Problem: Hypertension Qualifiers: Hypertension type: primary hypertension Qualified Code(s): I10 - Essential ( primary) hypertension
[2021-09-08 06:53] LABS: BUN Creatinine Ratio 15.7 (10-20); Calcium 8.2 mg/dl (8.5-10.1); Creatinine Clr Calc Pharmacy 59.3 ml/min; Est GFR (African American) 81.1 ml/min; Magnesium 2.1 mg/dl (1.7-2.4); Potassium 3.8 mmol/L (3.5-5.1)
[2021-09-08 06:56] LABS: Troponin I 0.18 ng/ml (0-0.04)
--- NOTE | 2021-09-08 07:54 | XRay Report ---
XR chest 1V portable CLINICAL HISTORY: Dysrhythmia. COMPARISON STUDY: 11/18/2018 TECHNIQUE: 1 view of the chest FINDINGS: Single frontal view of the chest demonstrates the cardiomediastinal silhouette to be within normal li mits. The lungs are clear of alveolar opacities. There is no evidence for pleural effusion. There is no evidence for vascular congestion. There is no acute osseous pathology. IMPRESSION: 1. No acute cardiopulmonary disease. ACT 112: Negative or not required by law. Electronically signed by: Ricardo Obando M.D. 09/08/2021 7:53 AM
--- NOTE | 2021-09-08 08:44 | Electrocardiogram Report ---
Test Reason : Blood Pressure : / mmHG Vent. Rate : 161 BPM Atrial Rate : 153 BPM P-R Int : 000 ms QRS Dur : 084 ms QT Int : 270 ms P-R-T Axes : 000 -11 019 degrees QTc Int : 441 ms Poor data quality, interpretation may be adversely affected Supraventricular tachycardia Moderate voltage criteria for LVH, may be normal variant Borderline ECG When compared with ECG of 20-AUG-2021 07:58, Supraventricular tachycardia now present Vent. rate has increased BY 108 BPM Confirmed by Nicolas Gan ([id number]) on 09/08/2021 8:44:15 AM Referred By: REFERRED SELF Confirmed By:Nicolas Gan
--- NOTE | 2021-09-08 08:45 | Electrocardiogram Report ---
Test Reason : Blood Pressure : / mmHG Vent. Rate : 084 BPM Atrial Rate : 084 BPM P-R Int : 168 ms QRS Dur : 082 ms QT Int : 342 ms P-R-T Axes : 048 -09 016 degrees QTc Int : 404 ms Poor data quality, interpretation may be adversely affected Normal sinus rhythm Left atrial enlargement Left ventricular hypertrophy Abnormal ECG When compared with ECG of 07-SEP-2021 19:15, Supraventricular tachycardia no longer present Vent. rate has decreased BY 77 BPM Confirmed by Nicolas Gan ([id number]) on 09/08/2021 8:44:36 AM Referred By: REFERRED SELF Confirmed By:Nicolas Gan
[2021-09-08] MEDS ORDERED: CHOLECALCIFEROL 1,000 UNITS 25 MCG TAB PO SCH (09:00)
[2021-09-08] MEDS ORDERED: NON-FORMULARY MEDICATION (Glucosamine-Chondroitin [Osteo Bi-Flex] 250-200 mg Tablet) PO SCH (09:00)
[2021-09-08] MEDS ORDERED: METOPROLOL TARTRATE 25 MG TAB PO SCH (09:00)
[2021-09-08] MEDS ORDERED: CALCIUM 600MG + VIT D 400 IU TAB PO SCH (09:00)
--- NOTE | 2021-09-08 11:03 | XCELERA ---
[id number]
--- NOTE | 2021-09-08 12:57 | Cardiology Consultation ---
Date of Consultation September 08, 2021 Assessment & Plan (1) SVT (supraventricular tachycardia): (2) Elevated troponin: (3) Hypertension: (4) Obesity (BMI 30-39.9): 1. SVT: She had recurrence of her SVT, it was not terribly symptomatic (she did not seem to get palpitations initially but just felt poorly) and she may have more of it than she realizes. This episode was quite fast and she did have borderline elevated troponins which is a little bit worrisome. I think it would be better for her not to have recurrent episodes. I discussed options with her and her son. I recommended that we switch to diltiazem to try to control the arrhythmia but also schedule her to see Dr. Kenny to discuss ablation. They are agreeable. 2. Elevated troponin: I believe her elevated troponin is due to the sustained SVT, not from an ischemic event, and she had a stress test several years ago which was negative for ischemia. She does not have symptoms to suggest angina. I do not think we need to pursue this further. 3. Hypertension: Although her blood pressure is often normal she does have elevated readings at times and she is on low-dose metoprolol tartrate. That does not seem to be controlling her arrhythmia and I would suggest switching to long-acting diltiazem. This may treat the arrhythmia better and possibly her blood pressure. I will make these changes. 4. Obesity: She is overweight, her weight has been relatively stable and this probably does not specifically affect her SVT. I do not think her size would make ablation particularly problematic. History of Present Illness Reason for Consultation: SVT Attending Physician: Martina Nagy MD History of Present Illness This is a 71-year-old woman who has seen Dr. Laws and Dr. Kenny in the past. 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 Ablation has been discussed, although I do not think since December 2018, and vagal maneuvers were described to her. She was hospitalized in December 2018 where she had a slightly elevated troponin and a negative stress echo. 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 She came into the emergency room where she was in SVT at a rate of 161 bpm. She was given adenosine with conversion to sinus rhythm and a subsequent electrocardiogram was essentially unremarkable. She did have an echocardiogram done on September 08, 2021 which showed normal left ventricular size and function with normal wall motion and mild aortic regurgitation with mild pulmonary hypertension. Today she tells me that she is feeling much better, she is somewhat vague about her symptoms yesterday but tells me that initially she was not sure but later on she could feel her heart beating rapidly. I am still not sure she has much in the way of symptoms when the tachycardia started. Allergies Allergy/AdvReac Type Severity Reaction Status Date / Time No Known Allergies Allergy Verified 09/07/21 21:36 Home Medications Medication Instructions Recorded Confirmed Type calcium citrate 315 mg-vitamin D3 1 tab PO BID tab 03/19/19 09/07/21 History 5 mcg (200 unit) tablet (Calcium Citrate + D) metoprolol tartrate 25 mg tablet 12.5 mg PO BID #90 tab 03/11/21 09/07/21 Rx cholecalciferol (vitamin D3) 50 2,000 units PO QAM 06/07/21 09/07/21 History mcg (2,000 unit) capsule fexofenadine 180 mg tablet 180 mg PO QAM PRN 06/07/21 09/07/21 History glucosamine-chondroitin 250 mg-200 1 tab PO BID 06/07/21 09/07/21 History mg tablet (Osteo Bi-Flex) hydrocodone 5 mg-acetaminophen 325 1 tab PO Q6H PRN #30 tab 08/04/21 09/07/21 Rx mg tablet simvastatin 20 mg tablet 20 mg PO QDD 08/20/21 09/07/21 History Patient History Medical History History of left breast cancer diagnosed 1995--sx/radiation History of skin cancer pt unsure what kind, removed in office Hyperlipidemia LDL goal <70 Hypertension Osteoarthritis Paroxysmal supraventricular tachycardia on metoprolol--follows with Dr. Laws Postmenopausal status Sensorineural hearing loss Spinal stenosis Surgical History History of arthroscopy of left knee meniscus repair History of colonoscopy History of left breast biopsy malignant History of lumbar spinal fusion History of right knee surgery History of tooth extraction Hx of bilateral cataract extraction Family History Mother Myocardial infarction Other Family history non-contributory No family history of adverse response to anesthesia Denies family history of Ovarian cancer Prostate cancer Breast cancer Colorectal cancer Social History Smoking Status: Never smoker Second Hand Exposure: No; Hx Alcohol Use: No Hx Substance Use: No Preferred Language: Marshallese Communication Ability: Effective Esl Professor Required: No Beliefs That Will Affect Care: None marital status: Single Current Living Situation: Family Current Living Situation Comment: with son, sister, son in law, friend current occupational status: employed and other 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 [employer] How many Children do You have: 2 Other Information That Helps Us Care for You: No Feels Safe at Home: Yes Safety Concerns: Feels Safe At This Time Childhood Exposure to Second-Hand Smoke: Yes caffeine: No Dental Care, Regularly: Yes Physical Activity Frequency: Daily Seatbelt Use: always Sunscreen Use: Yes (sometimes) Assistive Devices: None Review of Systems Review of Systems: All systems reviewed & are unremarkable except as noted in HPI & below Results & Data ([facility]) Vital Signs (Past 12 Hours) Vital Signs Temp Pulse Pulse Resp BP Pulse Ox 09/08/21 11:52 36.6 C 56 L 18 120/73 97 09/08/21 07:54 36.5 C 79 18 102/69 09/08/21 07:13 94 H 09/08/21 03:12 36.4 C L 65 17 109/70 94 Laboratory Results Cardiac Enzymes 09/07/21 09/07/21 09/08/21 Range/Units 19:09 21:53 05:44 AST 17 (13-39) U/L Troponin I 0.08 H* 0.17 H* 0.18 H* (0-0.04) ng/ml 09/08/21 Range/Units 10:57 AST (13-39) U/L Troponin I 0.16 H* (0-0.04) ng/ml CBC 09/07/21 Range/Units 19:09 WBC 8.19 (4.8-10.8) K/uL RBC 4.72 (4.2-5.4) M/uL Hgb 14.1 (12.0-16.0) g/dL Hct 42.4 (37-47) % Plt Count 275 (130-400) K/uL Neut # (Auto) 5.93 (1.4-6.5) K/uL Lymph # (Auto) 1.72 (1.2-3.4) K/uL [place] # (Auto) 0.44 (0.11-0.59) K/uL Eos # (Auto) 0.08 (0-0.5) K/uL Baso # (Auto) 0.01 (0-0.2) K/uL Comprehensive Metabolic Panel 09/07/21 09/08/21 Range/Units 19:09 05:44 Sodium 140 142 (136-145) mmol/L Potassium 4.1 3.8 (3.5-5.1) mmol/L Chloride 107 109 H (98-107) mmol/L Carbon Dioxide 25 30 (21-32) mmol/L BUN 16 13 (6-23) mg/dl Creatinine 1.03 0.83 (0.6-1.2) mg/dl Glucose 177 H 83 (70-99(Fasting)) mg/dl Calcium 9.2 8.2 L (8.5-10.1) mg/dl AST 17 (13-39) U/L ALT 21 (7-52) U/L Alkaline Phosphatase 57 (34-104) U/L Total Protein 6.8 (6.0-8.3) gm/dl Albumin 4.1 (3.4-5.0) gm/dl Intake and Output 09/07/21 09/08/21 09/08/21 22:59 06:59 14:59 Intake Total 200 / 200 Balance 200 / 200 Intake: IV 100 / 100 Magnesium Sulfate / D5w 1 gm In 100 / 100 100 ml @ 50 mls/hr IV ONE ONE Rx#:[id number] Oral 100 / 100 Other: # Unmeasured Voids 1 Weight 86.6 kg 87.4 kg Weight Measurement Method Standing Scale Diagnostic Findings Telemetry: Sinus rhythm since conversion of SVT with adenosine. PG Care Time/CCT Total # of Minutes Spent Total Time Spent with Patient: Total time spent is greater than 50% in coordination of care (as documented) at patient's floor/unit and/or counseling patient: Coding Level of Care Code 17903 Initial Inpt Care Lvl 3 Diagnoses SVT (supraventricular tachycardia) I47.1 Elevated troponin R77.8 Hypertension I10 Hypertension type: primary hypertension Obesity (BMI 30-39.9) E66.9 (1) Hypertension Hypertension type: primary hypertension Qualified Code(s): I10 - Essential (primary) hypertension
--- NOTE | 2021-09-08 15:13 | Discharge Summary ---
Date of Service September 08, 2021 Admission HPI Per Admitting Provider Patient states she was in her normal state of health at work and had a good day at work. 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 Upon coming home she said she just did not feel well she was sort of slightly dizzy and nauseated chest her son to check her blood pressure. The blood pressure machine would not register subsequently her son then felt for her pulse which he felt was rapid and brought the patient to the emergency department where she is found to be in SVT about 160 she did receive adenosine and now she is in sinus rhythm around 60. She does not have any new medication changes did not skip her metoprolol she cannot recall whether in 2019 when she had a similar presentation if she did complete outpatient cardiac monitoring as mentioned in her discharge summary. She says since that time she is not had any additional symptoms that she knows of. She also denies any anginal symptoms or heart failure symptoms preceding these events. She does have some increased lower extremity edema which is trace at best but seems to be different when I brought up to her. She denies taking any stimulants increased caffeine or feeling ill prior to this event At the time of admission her Covid testing is pending Principal Diagnosis SVT Discharge Exam Vital Signs Temp Pulse Pulse Resp BP BP Pulse Ox 09/08/21 14:48 63 09/08/21 11:52 36.6 C 56 L 18 120/73 97 09/08/21 07:54 36.5 C 79 18 102/69 09/08/21 07:13 94 H 09/08/21 03:12 36.4 C L 65 17 109/70 94 09/08/21 00:29 66 09/08/21 00:22 36.9 C 58 L 18 150/86 H 97 09/07/21 23:31 66 22 145/79 H 96 09/07/21 23:30 67 20 95 09/07/21 23:16 68 16 182/73 H 97 09/07/21 23:08 09/07/21 23:00 65 20 95 09/07/21 22:45 60 19 131/80 94 09/07/21 22:30 59 L 19 127/79 93 09/07/21 22:15 63 21 146/78 H 94 09/07/21 22:00 59 L 15 118/79 97 09/07/21 21:45 64 17 128/79 94 09/07/21 21:31 114/73 97 09/07/21 21:30 94 09/07/21 21:16 97 09/07/21 21:00 66 16 108/77 94 09/07/21 20:15 70 118/79 09/07/21 19:45 72 16 120/79 94 09/07/21 19:40 78 19 95 09/07/21 19:35 76 20 95 09/07/21 19:30 76 19 123/82 93 09/07/21 19:25 78 19 95 09/07/21 19:20 88 14 96 09/07/21 19:16 160 H 19 114/96 94 09/07/21 19:15 163 H 23 09/07/21 19:14 162 H 23 09/07/21 19:07 35.8 C L 175 H 18 95 09/07/21 19:04 96 Pulse Ox 09/08/21 14:48 09/08/21 11:52 09/08/21 07:54 09/08/21 07:13 09/08/21 03:12 09/08/21 00:29 09/08/21 00:22 09/07/21 23:31 09/07/21 23:30 09/07/21 23:16 09/07/21 23:08 97 09/07/21 23:00 09/07/21 22:45 09/07/21 22:30 09/07/21 22:15 09/07/21 22:00 09/07/21 21:45 09/07/21 21:31 09/07/21 21:30 09/07/21 21:16 09/07/21 21:00 09/07/21 20:15 09/07/21 19:45 09/07/21 19:40 09/07/21 19:35 09/07/21 19:30 09/07/21 19:25 09/07/21 19:20 09/07/21 19:16 09/07/21 19:15 09/07/21 19:14 09/07/21 19:07 09/07/21 19:04 Intake and Output 09/08/21 09/08/21 09/08/21 06:59 14:59 22:59 Intake Total 200 / 200 350 / 350 Balance 200 / 200 350 / 350 Intake: IV 100 / 100 Magnesium Sulfate / D5w 1 gm In 100 / 100 100 ml @ 50 mls/hr IV ONE ONE Rx#:[id number] Oral 100 / 100 350 / 350 Other: # Unmeasured Voids 1 2 Weight 87.4 kg Weight Measurement Method Standing Scale Constitutional and general: No acute distress, looks biologic age Head and face: No puffiness, atraumatic Eyes: No scleral icterus, extraocular movements normal Neck: Supple, no JVD Neurologic: Cranial nerves intact, nonfocal Psychiatry: Awake, alert, pleasant, communicative Cardiovascular: Heart rhythm regular during my evaluation Respiratory: Chest movements equal, no use of accessory muscles, no adventitious sounds Extremities: (+) Discharge Data Allergies Allergy/AdvReac Type Severity Reaction Status Date / Time No Known Allergies Allergy Verified 09/07/21 21:36 Consultations 09/07/21 22:55 ED Decision to Admit Stat 09/07/21 23:08 Consult Cardiology Routine Hospital Course (1) Paroxysmal supraventricular tachycardia: Presented with SVT; in the ER treated with adenosine and 1 dose of short acting metoprolol; on admission metoprolol dose increased; seen by cardiology and metoprolol switched to long-acting Cardizem; cardiology recommended can be discharged and follow-up with EP. She did have some signs and symptoms of fluid retention, probably secondary to tachyarrhythmia; today better and diuretic not administered-anticipate may have postconversion diuresis and improve on its own. (2) Hypertension: As above (3) Hyperlipidemia LDL goal <70: Continue simvastatin 20 Total Time Total Time Spent Total Time Spent (In Minutes): 35 Discharge Plan Discharge Items Patient Disposition: Home - Self-Care Reason For Visit: SYMPTOMATIC SVT Discharge Diagnosis: SVT Activity: Resume your previous activity Non-emergency contact: Primary Care Provider and Aids Nurse Call non-emergency contact if: your symptoms worsen Follow-up/Referrals: Heike Kessler CRNP [Primary Care Provider] - Marinao Kenny MD [Physician] - (recurrent PSVT) Diet: Heart Healthy Addtl Attending Provider Instructions: None Pending Studies at Discharge: No Stand-Alone Forms: My [employer], Smoking Cessation Medications and DC Order Prescriptions: New diltiazem HCl 180 mg Capsule,Extended Release 24hr 180 mg PO QAM 30 Days Qty: 30 RF: 1 Continued calcium citrate-vitamin D3 [Calcium Citrate + D] 315-200 mg-unit tablet 1 tab PO BID RF: 0 hydrocodone-acetaminophen 5-325 mg tablet 1 tab PO Q6H PRN (Reason: pain) Qty: 30 RF: 0 simvastatin 20 mg tablet 20 mg PO QDD RF: 0 cholecalciferol (vitamin D3) 2,000 unit capsule 2,000 units PO QAM RF: 0 fexofenadine [Shadia] 180 mg Tablet 180 mg PO QAM PRN (Reason: Allergy Symptoms) RF: 0 glucosamine-chondroitin [Osteo Bi-Flex] 250-200 mg Tablet 1 tab PO BID RF: 0 Discontinued metoprolol tartrate 25 mg tablet 12.5 mg PO BID Qty: 90 RF: 3 Discharge Orders: Discharge Order (Routine); Ordered 09/08/21 Ordered By: Martina aNgy Admission Data Admit Date/Time: 09/07/21 23:08 Attending Provider: Martina Nagy Admit Provider: Dann Duarte Primary Care Provider: Heike Kessler Other Providers: Dann Duarte ; Dheeraj Laws Coding Level of Care Code 88974 OBS Care - Discharge Diagnoses Paroxysmal supraventricular tachycardia I47.1 Hypertension I10 Hypertension type: primary hypertension Hyperlipidemia LDL goal <70 E78.5
[2021-09-08] MEDS ORDERED: SIMVASTATIN 20 MG TAB PO SCH (16:30)
[2021-09-09] MEDS ORDERED: dilTIAZem HCL 180 MG CAPCR PO SCH (09:00)
== END 2021-09-08 15:44 | disposition home or self-care (01) ==
LOC: 2S 19:03 → ED 19:03 → 2S 09-08 00:26

== ENCOUNTER 2021-09-24 18:22 | Observation (INO) ==
[2021-09-24] MEDS ORDERED: SODIUM CHLORIDE 0.9% 500 ML IV STA (18:39)
[2021-09-24] MEDS ORDERED: HYDROmorphone INJ 0.5 MG/0.5 ML SYR IV PRN (18:39)
[2021-09-24] MEDS ORDERED: ONDANSETRON INJ 2 MG/ML 2 ML VIAL IV STA (18:39)
--- NOTE | 2021-09-24 18:50 | Emergency Department Note ---
Impression & Plan Acute right flank pain, Nausea & vomiting ED Provider Note StoneINFORMANT: Patient and family ED PROVIDER(S): New Romero MD CHIEF COMPLAINT: Right flank pain PLAN: Disposition: Admitted Condition: Good Outpatient prescription management: none Referral: None MEDICAL DECISION MAKING: Patient presented with acute right flank pain. She was significantly uncomfo rtable rating her pain a 10 out of 10. She had an IV established. She was given normal saline, Zofran, and Dilaudid for symptom control. Blood work and urinalysis ordered. She had CT imaging ordered. Patient was sent for CT imaging. The patient was found to have a 4 mm obstructing right-sided stone. Her CBC and chemistry panel was unremarkable. The patient's urinalysis showed blood and white cells. No bacteria present. Patient received 2 doses of IV Dilaudid. She also received a dose of IV Toradol. Unfortunately she still had moderate pain and was experiencing oxygen desaturations requiring supplemental oxygen for resolution. Patient and family were uncomfortable going home. Co nsultation was made with Dr. Gaviria of the [facility] service. Patient was evaluated in the ER for further management. Triage Nursing notes reviewed and agree them. Vital Signs: reviewed and remarkable for mild hypertension Differential diagnosis: Renal colic, UTI, appendicitis, diverticulitis, mesenteric ischemia, aortic pathology, infections, inflammatory bowel disease, PUD, biliary pathology, as well as other pathologies. Diagnostics interpreted by me: ECG: none Cardiac Monitoring: Cardiac monitoring ordered by me: The patient was placed on continuous cardiac monitoring and observed. It revealed a normal sinus rhythm at 75 beats per minute without ectopy or evidence of dysrhythmia. Imaging studies: CT scan of the abdomen pelvis without contrast reveals 4 mm stone as noted above. HPI: The patient is a 71 year old female who presents to the Emergency Room with complaints of right flank pain. This started less than 2 hours ago and is sharp and sudden. The patient also notes the following associated symptoms, nausea and vomiting. The patient has found no relieving factors. Current pain is rated as 10/10. No prior history of the same. Still has gallbladder and appendix. Does have a sister the kidney stones. Recently admitted for paroxysmal SVT with a bumped troponin. Denies any chest symptoms or palpitations. Pt denies LOC, headache, fevers, chills, diaphoresis, visual changes, neck pain, chest pain, breathing difficulties, back pain, melena, hematochezia, urinary symptoms, numbness, weakness, lymphadenopathy, rash, or other complaints. ROS: See above HPI for pertinent positives & negatives. A total of 10 systems reviewed and were otherwise negative. PAST MEDICAL HISTORY:See Below , SVT, hypertension PAST SURGICAL HISTORY:See Below, FAMILY HISTORY:See Below SOCIAL HISTORY:See Below, employed HOME MEDICATIONS:See Below ALLERGIES:See Below VITALS:See Below PHYSICAL EXAMINATION: GENERAL: Awake, alert, extremely uncomfortable-appearing, in moderate distress HENT: Normocephalic, atraumatic. Oropharynx unremarkable. EYES: Normal conjunctiva. Sclera non-icteric. NECK: Inspection normal. Non-tender. Supple. No nuchal rigidity. FROM. No masses. RESPIRATORY: Clear to auscultation. No wheezes. No rales. Normal respiratory effort. CARDIAC: Normal rate. Normal rhythm. No murmurs. No rubs. Extremities warm and well perfused. Pulses equal. No JVD. GI: Soft, non-distended. Right flank tenderness to palpation. No rebound or guarding. No masses. RECTAL: Deferred. MUSCULOSKELETAL: Atraumatic. Chest examination reveals no tenderness. The back is symmetrical on inspection without obvious abnormality. There is no CVA tenderness to palpation. No joint edema. LOWER EXTREMITIES: Calves are equal size bilaterally and non-tender. No edema. No discoloration. NEURO: Normal sensorium. No sensory or motor deficits noted. SKIN: No rash or jaundice noted. OBSERVATION NOTE: Indication: Flank pain Patient, with acute right flank pain and kidney stone family History, was first seen at 1845 hrs and the observation time began at 1845 hrs and was necessary in order to determine etiology of flank pain and avoid unnecessary admission . Upon re-evaluation, 5 hours of observation revealed that the patient should be admitted secondary to intractable pain. Disposition date and time 09/24/2021 at 2345. New Romero MD Past Med/Surg History Medical History Elevated troponin History of COVID-19 DX'D [facility] 2ND WEEK 06/2021 HEADACHE, LOSS APETITE, LOSS TASTE AND SMELL, LOW FEVER,-RECOVERED AT HOME-ALL SYMPTOMS RESOLVED EXCEPT STILL HAS NO SMELL History of left breast cancer diagnosed 1995--sx/radiation History of skin cancer pt unsure what kind, removed in office Hyperlipidemia LDL goal <70 Hypertension NSTEMI (non-ST elevated myocardial infarction) PT DENIES Osteoarthritis Osteopenia HX Overactive bladder HX Paroxysmal supraventricular tachycardia F/U Dr. 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 Sensorineural hearing loss Spinal stenosis SVT (supraventricular tachycardia) SEEN [facility] -F/U DR GOSS Surgical History History of arthroscopy of left knee meniscus repair History of colonoscopy History of left breast biopsy malignant History of lumbar spinal fusion History of right knee surgery History of tooth extraction Hx of bilateral cataract extraction Family History Mother Myocardial infarction Family history of diabetes mellitus Sister Family history of diabetes mellitus Sister Family history of diabetes mellitus Other Family history non-contributory No family history of adverse response to anesthesia Denies family history of Ovarian cancer Prostate cancer Breast cancer Colorectal cancer Social History Smoking Status: Never smoker Second Hand Exposure: No; Hx Alcohol Use: Yes Alcohol type: wine Alcohol Intake Frequency: Monthly or Less Hx Substance Use: Yes Preferred Language: Israeli Communication Ability: Effective Physician Relations Manager Required: No Beliefs That Will Affect Care: None marital status: Single Current Living Situation: Family Current Living Situation Comment: SON current occupational status: employed and 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 [employer] How many Children do You have: 2 Feels Safe at Home: Yes Childhood Exposure to Second-Hand Smoke: Yes caffeine: No Dental Care, Regularly: Yes Physical Activity Frequency: Daily Seatbelt Use: always Sunscreen Use: Yes (sometimes) Assistive Devices: None Allergies Allergies Allergy/AdvReac Type Severity Reaction Status Date / Time No Known Allergies Allergy Verified 09/24/21 18:55 Home Meds Home Medications Medication Instructions Recorded Confirmed calcium citrate 315 mg-vitamin D3 1 tab PO BID tab 03/19/19 09/24/21 5 mcg (200 unit) tablet (Calcium Citrate + D) cholecalciferol (vitamin D3) 50 2,000 units PO QAM 06/07/21 09/24/21 mcg (2,000 unit) capsule fexofenadine 180 mg tablet 180 mg PO QAM PRN 06/07/21 09/24/21 glucosamine-chondroitin 250 mg-200 1 tab PO BID 06/07/21 09/24/21 mg tablet (Osteo Bi-Flex) simvastatin 20 mg tablet 20 mg PO QPM 08/20/21 09/24/21 Previous Rx's Medication Instructions Recorded hydrocodone 5 mg-acetaminophen 325 1 tab PO Q6H PRN #30 tab 08/04/21 mg tablet diltiazem HCl 180 mg 180 mg PO QAM 30 Days #30 cap 09/08/21 capsule,extended release 24 hr Results & Data (ED) Vital Signs Vital Signs - 24 hr 09/24/21 18:26 09/24/21 18:58 09/24/21 19:04 Temperature 36.8 C Temperature Source Temporal Artery Scan Pulse Rate 75 Pulse Rate [Apical] 62 Pulse Rate from SpO2 Sensor Pulse Rhythm Regular Pulse Rhythm [Apical] Regular Pulse Strength Normal Pulse Strength [Apical] Normal Respiratory Rate 20 18 Respiratory Effort / Characteristics Non-Labored Spontaneous Non-Labored Respiratory Depth Normal Normal Respiratory Pattern Regular Blood Pressure 143/100 H Blood Pressure [Right Arm] 176/81 H Blood Pressure Mean 114 Blood Pressure Mean [Right Arm] 112 Pulse Oximetry 95 93 95 Oxygen Delivery Method Room Air Room Air Nasal Cannula Oxygen Flow Rate 2 Sepsis Recent Fever Within 48 Hours No Sepsis New/Unexplained Change in Mental Status No Sepsis Action Taken by Nursing No Action Required 09/24/21 19:15 09/24/21 19:30 09/24/21 20:00 Temperature Temperature Source Pulse Rate 57 L 72 65 Pulse Rate [Apical] Pulse Rate from SpO2 Sensor 57 L 70 69 Pulse Rhythm Pulse Rhythm [Apical] Pulse Strength Pulse Strength [Apical] Respiratory Rate 15 16 23 Respiratory Effort / Characteristics Respiratory Depth Respiratory Pattern Blood Pressure Blood Pressure [Right Arm] Blood Pressure Mean Blood Pressure Mean [Right Arm] Pulse Oximetry 96 95 94 Oxygen Delivery Method Oxygen Flow Rate Sepsis Recent Fever Within 48 Hours Sepsis New/Unexplained Change in Mental Status Sepsis Action Taken by Nursing 09/24/21 20:05 09/24/21 20:22 09/24/21 20:30 Temperature Temperature Source Pulse Rate 67 60 Pulse Rate [Apical] 59 L Pulse Rate from SpO2 Sensor 65 60 Pulse Rhythm Pulse Rhythm [Apical] Pulse Strength Pulse Strength [Apical] Respiratory Rate 23 18 14 Respiratory Effort / Characteristics Respiratory Depth Respiratory Pattern Blood Pressure 144/92 H Blood Pressure [Right Arm] 144/92 H Blood Pressure Mean 109 Blood Pressure Mean [Right Arm] 109 Pulse Oximetry 95 94 94 Oxygen Delivery Method Nasal Cannula Oxygen Flow Rate 2 Sepsis Recent Fever Within 48 Hours Sepsis New/Unexplained Change in Mental Status Sepsis Action Taken by Nursing 09/24/21 21:00 09/24/21 21:30 09/24/21 22:00 Temperature Temperature Source Pulse Rate 60 61 57 L Pulse Rate [Apical] 69 Pulse Rate from SpO2 Sensor 60 60 58 L Pulse Rhythm Pulse Rhythm [Apical] Pulse Strength Pulse Strength [Apical] Respiratory Rate 14 14 12 Respiratory Effort / Characteristics Non-Labored Respiratory Depth Normal Respiratory Pattern Blood Pressure Blood Pressure [Right Arm] 140/90 Blood Pressure Mean Blood Pressure Mean [Right Arm] 106 Pulse Oximetry 95 95 96 Oxygen Delivery Method Room Air Oxygen Flow Rate Sepsis Recent Fever Within 48 Hours Sepsis New/Unexplained Change in Mental Status Sepsis Action Taken by Nursing 09/24/21 22:30 09/24/21 23:00 09/24/21 23:12 Temperature Temperature Source Pulse Rate 66 73 63 Pulse Rate [Apical] Pulse Rate from SpO2 Sensor 65 70 65 Pulse Rhythm Pulse Rhythm [Apical] Pulse Strength Pulse Strength [Apical] Respiratory Rate 24 14 26 H Respiratory Effort / Characteristics Respiratory Depth Respiratory Pattern Blood Pressure Blood Pressure [Right Arm] Blood Pressure Mean Blood Pressure Mean [Right Arm] Pulse Oximetry 90 97 88 L Oxygen Delivery Method Room Air Oxygen Flow Rate Sepsis Recent Fever Within 48 Hours Sepsis New/Unexplained Change in Mental Status Sepsis Action Taken by Nursing 09/24/21 23:21 09/24/21 23:22 09/24/21 23:30 Temperature Temperature Source Pulse Rate 68 67 60 Pulse Rate [Apical] Pulse Rate from SpO2 Sensor 70 68 62 Pulse Rhythm Pulse Rhythm [Apical] Pulse Strength Pulse Strength [Apical] Respiratory Rate 14 12 19 Respiratory Effort / Characteristics Respiratory Depth Respiratory Pattern Blood Pressure Blood Pressure [Right Arm] Blood Pressure Mean Blood Pressure Mean [Right Arm] Pulse Oximetry 78 L 86 L 98 Oxygen Delivery Method Room Air Oxygen Flow Rate 2 Sepsis Recent Fever Within 48 Hours Sepsis New/Unexplained Change in Mental Status Sepsis Action Taken by Nursing 09/25/21 00:00 Temperature Temperature Source Pulse Rate 68 Pulse Rate [Apical] Pulse Rate from SpO2 Sensor 68 Pulse Rhythm Pulse Rhythm [Apical] Pulse Strength Pulse Strength [Apical] Respiratory Rate 16 Respiratory Effort / Characteristics Respiratory Depth Respiratory Pattern Blood Pressure Blood Pressure [Right Arm] Blood Pressure Mean Blood Pressure Mean [Right Arm] Pulse Oximetry 99 Oxygen Delivery Method Oxygen Flow Rate Sepsis Recent Fever Within 48 Hours Sepsis New/Unexplained Change in Mental Status Sepsis Action Taken by Nursing Laboratory Data Result diagrams: 09/24/21 18:49 09/24/21 19:31 Lab Results 09/24/21 09/24/21 09/24/21 Range/Units 18:49 18:49 19:31 WBC 9.73 (4.8-10.8) K/uL RBC 4.94 (4.2-5.4) M/uL Hgb 15.0 (12.0-16.0) g/dL Hct 44.3 (37-47) % MCV 89.7 (80-100) fL MCH 30.4 (25-34) pg MCHC 33.9 (32-36) g/dL RDW Std Deviation 45.8 (36.4-46.3) fL RDW Coeff of Denisha 14.0 (11.5-14.5) % Plt Count 278 (130-400) K/uL MPV 10.6 H (7.4-10.4) fL Immature Gran % (Auto) 0.1 % Neut % (Auto) 79.0 % Lymph % (Auto) 12.6 % [place] % (Auto) 7.4 % Eos % (Auto) 0.8 % Baso % (Auto) 0.1 % Neut # (Auto) 7.68 H (1.4-6.5) K/uL Lymph # (Auto) 1.23 (1.2-3.4) K/uL [place] # (Auto) 0.72 H (0.11-0.59) K/uL Eos # (Auto) 0.08 (0-0.5) K/uL Baso # (Auto) 0.01 (0-0.2) K/uL Immature Gran # (Auto) 0.01 (0.00-0.02) K/uL Sodium 139 (136-145) mmol/L Potassium 3.7 (3.5-5.1) mmol/L Chloride 104 (98-107) mmol/L Carbon Dioxide 29 (21-32) mmol/L Anion Gap 6 (3-11) BUN 15 (6-23) mg/dl Creatinine 0.99 (0.6-1.2) mg/dl Est Cr Clr Drug Dosing 49.5 ml/min Est GFR ( Amer) 65.5 ml/min Est GFR (Non-Af Amer) 56.5 ml/min BUN/Creatinine Ratio 15.2 (10-20) Glucose 121 H (70-99(Fasting)) mg/dl Calcium 9.3 (8.5-10.1) mg/dl Total Bilirubin 0.5 (0.2-1.0) mg/dl AST 15 (13-39) U/L ALT 24 (7-52) U/L Alkaline Phosphatase 60 (34-104) U/L Total Protein 7.1 (6.0-8.3) gm/dl Albumin 4.4 (3.4-5.0) gm/dl Globulin 2.7 (2.5-4.0) gm/dl Albumin/Globulin Ratio 1.6 (0.9-2) Lipase 31 (11-82) U/L Urine Color Urine Appearance (Clear) Urine pH (4.5-7.5) Ur Specific [place] (1.000-1.030) Urine Protein (Negative) Urine Glucose (UA) (Negative) Urine Ketones (Negative) Urine Blood (Negative) Urine Nitrite (Negative) Urine Bilirubin (Negative) Urine Urobilinogen (Negative) Ur Leukocyte Esterase (Negative) Urine WBC (Auto) (0-5) /hpf Urine RBC (Auto) (0-4) /hpf U Hyaline Cast (Auto) (0-5) /lpf U Epithel Cells (Auto) (0-5) /lpf Urine Bacteria (Auto) (Negative) SARS-CoV-2, RNA, NAAT (NEGATIVE) 09/24/21 09/24/21 Range/Units 22:17 23:27 WBC (4.8-10.8) K/uL RBC (4.2-5.4) M/uL Hgb (12.0-16.0) g/dL Hct (37-47) % MCV (80-100) fL MCH (25-34) pg MCHC (32-36) g/dL RDW Std Deviation (36.4-46.3) fL RDW Coeff of Denisha (11.5-14.5) % Plt Count (130-400) K/uL MPV (7.4-10.4) fL Immature Gran % (Auto) % Neut % (Auto) % Lymph % (Auto) % [place] % (Auto) % Eos % (Auto) % Baso % (Auto) % Neut # (Auto) (1.4-6.5) K/uL Lymph # (Auto) (1.2-3.4) K/uL [place] # (Auto) (0.11-0.59) K/uL Eos # (Auto) (0-0.5) K/uL Baso # (Auto) (0-0.2) K/uL Immature Gran # (Auto) (0.00-0.02) K/uL Sodium (136-145) mmol/L Potassium (3.5-5.1) mmol/L Chloride (98-107) mmol/L Carbon Dioxide (21-32) mmol/L Anion Gap (3-11) BUN (6-23) mg/dl Creatinine (0.6-1.2) mg/dl Est Cr Clr Drug Dosing ml/min Est GFR ( Amer) ml/min Est GFR (Non-Af Amer) ml/min BUN/Creatinine Ratio (10-20) Glucose (70-99(Fasting)) mg/dl Calcium (8.5-10.1) mg/dl Total Bilirubin (0.2-1.0) mg/dl AST (13-39) U/L ALT (7-52) U/L Alkaline Phosphatase (34-104) U/L Total Protein (6.0-8.3) gm/dl Albumin (3.4-5.0) gm/dl Globulin (2.5-4.0) gm/dl Albumin/Globulin Ratio (0.9-2) Lipase (11-82) U/L Urine Color Yellow Urine Appearance Cloudy A (Clear) Urine pH 5.0 (4.5-7.5) Ur Specific [place] 1.028 (1.000-1.030) Urine Protein Trace H (Negative) Urine Glucose (UA) Negative (Negative) Urine Ketones Negative (Negative) Urine Blood 3+ H (Negative) Urine Nitrite Negative (Negative) Urine Bilirubin Negative (Negative) Urine Urobilinogen Negative (Negative) Ur Leukocyte Esterase Trace H (Negative) Urine WBC (Auto) >30 H (0-5) /hpf Urine RBC (Auto) >30 H (0-4) /hpf U Hyaline Cast (Auto) 10-30 H (0-5) /lpf U Epithel Cells (Auto) >30 H (0-5) /lpf Urine Bacteria (Auto) Negative (Negative) SARS-CoV-2, RNA, NAAT NEGATIVE (NEGATIVE) Administered Medications Discontinued Medications Hydromorphone HCl (Hydromorphone Inj 0.5 Mg/0.5 Ml Syr) 0.5 mg IV Q15M PRN PRN Reason: Pain Stop: 10/08/21 18:38 Last Admin: 09/24/21 18:46 Dose: 0.5 mg Documented by: [id number] Hydromorphone HCl (Hydromorphone Inj 0.5 Mg/0.5 Ml Syr) 0.25 mg IV NOW STA Stop: 09/24/21 23:06 Last Admin: 09/24/21 23:14 Dose: 0.25 mg Documented by: [id number] Sodium Chloride (Nss) 500 mls @ 999 mls/hr IV .Q31M STA Stop: 09/24/21 19:09 Last Infusion: 09/24/21 20:01 Dose: 0 mls/hr Documented by: [id number] Admin: 09/24/21 19:15 Dose: 999 mls/hr Documented by: [id number] Ketorolac Tromethamine (Ketorolac Tromethamine 15 Mg/Ml Vial) 10 mg IV NOW ONE Stop: 09/24/21 19:56 Last Admin: 09/24/21 20:00 Dose: 10 mg Documented by: [id number] Ondansetron HCl (Ondansetron Inj 2 Mg/Ml 2 Ml Vial) 4 mg IV NOW STA Stop: 09/24/21 18:40 Last Admin: 09/24/21 18:46 Dose: 4 mg Documented by: [id number] Imaging Data Radiologist's Impression: Abdomen/Pelvis CT 09/24/21 18:39 CT abd pelvis wo con CLINICAL HISTORY: right flank pain TECHNIQUE: Helical axial images of the abdomen and pelvis were obtained. Automated dose lowering techniques and/or adjustment according to patient size were utilized for this exam. This exam was performed without intravenous contrast. COMPARISON: None available at the time of this dictation. FINDINGS: Lower chest: Bibasilar atelectasis versus scarring is seen. Liver: Unremarkable. No focal lesions are seen. Gallbladder and biliary tree: No calcified gallstones. Normal caliber wall. No intra- or extrahepatic biliary ductal dilation. Pancreas: Unremarkable, no focal lesions. Spleen: Unremarkable. Adrenals: Unremarkable. Kidneys and ureters: There is an obstructive stone at the right UVJ measuring 4 mm with associated hydroureter and mild hydronephrosis. Parapelvic cysts are seen bilaterally. Bladder: Limited evaluation due to underdistention. Reproductive organs: Unremarkable. Bowel: Unremarkable appearance of the bowel. The appendix is normal. Lymph nodes Retroperitoneal: Unremarkable. Mesenteric: Unremarkable. Pelvic: Unremarkable. Peritoneum: Normal. Vessels: Atherosclerotic calcifications are seen. Abdominal wall: Unremarkable. Bones: Posterior fixation hardware is seen and multilevel degenerative changes noted. IMPRESSION: Obstructive 4 mm stone in the right UVJ with associated mild hydronephrosis and hydroureter. ACT 112: Negative or not required by law. Electronically signed by: Eriberto Ordoñez M.D. 09/24/2021 7:28 PM Discharge Plan Visit Data Chief Complaint: Abdominal Pain Stated Complaint: R ABDOMEN PAIN, NAUSEA, VOMITING ED Provider: New Romero Discharge Problem: Acute right flank pain, Nausea & vomiting Discharge Instructions Interventions: ED Discharge Assessment Last Done: 09/25/21 00:36
[2021-09-24 18:59] LABS: Basophils # (auto) 0.01 K/uL (0-0.2); Basophils % (auto) 0.1 %; Eosinophils # (auto) 0.08 K/uL (0-0.5); Eosinophils % (auto) 0.8 %; Hematocrit (blood only) 44.3 % (37-47); Immature Granulocytes # (auto) 0.01 K/uL (0.00-0.02); Immature Granulocytes % (auto) 0.1 %; Lymphocytes # (auto) 1.23 K/uL (1.2-3.4); Lymphocytes % (auto) 12.6 %; Mean Corpuscular Hemoglobin 30.4 pg (25-34); Mean Corpuscular Hgb Conc 33.9 g/dL (32-36); Mean Corpuscular Volume 89.7 fL (80-100); Mean Platelet Volume 10.6 fL (7.4-10.4); Monocytes # (auto) 0.72 K/uL (0.11-0.59); Monocytes % (auto) 7.4 %; Neutrophils # (auto) 7.68 K/uL (1.4-6.5); Platelet Count 278 K/uL (130-400); RDW Standard Deviation 45.8 fL (36.4-46.3); Red Blood Count 4.94 M/uL (4.2-5.4); White Blood Count 9.73 K/uL (4.8-10.8)
[2021-09-24 19:25] LABS: Albumin Globulin Ratio 1.6 (0.9-2); Albumin Level 4.4 gm/dl (3.4-5.0); BUN Creatinine Ratio 15.2 (10-20); Bilirubin,Total 0.5 mg/dl (0.2-1.0); Calcium 9.3 mg/dl (8.5-10.1); Creatinine Clr Calc Pharmacy 49.5 ml/min; Est GFR (African American) 65.5 ml/min; Est GFR (Non-African American) 56.5 ml/min; Globulin 2.7 gm/dl (2.5-4.0); Total Protein 7.1 gm/dl (6.0-8.3)
--- NOTE | 2021-09-24 19:31 | CT Scan Report ---
CT abd pelvis wo con CLINICAL HISTORY: right flank pain TECHNIQUE: Helical axial images of the abdomen and pelvis were obtained. Automated dose lowering tech niques and/or adjustment according to patient size were utilized for this exam. This exam was perfor med without intravenous contrast. COMPARISON: None available at the time of this dictation. FINDINGS: Lower chest: Bibasilar atelectasis versus scarring is seen. Liver: Unremarkable. No focal lesions are seen. Gallbladder and biliary tree: No calcified gallstones. Normal caliber wall. No intra- or extrahepatic biliary ductal dilation. Pancreas: Unremarkable, no focal lesions. Spleen: Unremarkable. Adrenals: Unremarkable. Kidneys and ureters: There is an obstructive stone at the right UVJ measuring 4 mm with associated hy droureter and mild hydronephrosis. Parapelvic cysts are seen bilaterally. Bladder: Limited evaluation due to underdistention. Reproductive organs: Unremarkable. Bowel: Unremarkable appearance of the bowel. The appendix is normal. Lymph nodes Retroperitoneal: Unremarkable. Mesenteric: Unremarkable. Pelvic: Unremarkable. Peritoneum: Normal. Vessels: Atherosclerotic calcifications are seen. Abdominal wall: Unremarkable. Bones: Posterior fixation hardware is seen and multilevel degenerative changes noted. IMPRESSION: Obstructive 4 mm stone in the right UVJ with associated mild hydronephrosis and hydroureter. ACT 112: Negative or not required by law. Electronically signed by: Eriberto Ordoñez M.D. 09/24/2021 7:28 PM
[2021-09-24] MEDS ORDERED: KETOROLAC TROMETHAMINE 15 MG/ML VIAL IV ONE (19:55)
[2021-09-24 20:04] LABS: Potassium 3.7 mmol/L (3.5-5.1)
[2021-09-24 22:34] LABS: Appearance Urine Cloudy (Clear); Bacteria Urine Automated Negative (Negative); Bilirubin Urine Negative (Negative); Blood Urine 3+ (Negative); Color Urine Yellow; Epithelial Cell Urine Auto >30 /lpf (0-5); Glucose Urine UA Negative (Negative); Ketones Urine Negative (Negative); Leukocyte Esterase Urine Trace (Negative); Nitrite Urine Negative (Negative); Protein Urine Trace (Negative); RBC Urine Automated >30 /hpf (0-4); Specific Gravity Urine 1.028 (1.000-1.030); Urobilinogen Urine Negative (Negative); WBC Urine Automated >30 /hpf (0-5)
[2021-09-24] MEDS ORDERED: HYDROmorphone INJ 0.5 MG/0.5 ML SYR IV STA (23:05)
--- NOTE | 2021-09-24 23:51 | History & Physical Report ---
Date of Service September 24, 2021 Assessment & Plan (1) Urinary tract obstruction by kidney stone: Plan: 71-year-old female with a past medical history of prediabetes, osteopenia, plantar fasciitis, aortic insufficiency, hypertension, hyperlipidemia, and paroxysmal supraventricular tachycardia presents for evaluation of right flank pain diagnosed with 4 mm obstructing kidney stone. #Urinary tract obstruction secondary to kidney stone Patient presented to the hospital with acute onset of right flank pain subsequently diagnosed with a obstructing kidney stone. Patient was administered narcotic pain medication and subsequently developed hypoxia. Hospital service was consulted for admission. -Pain control with Toradol 15 mg q12 and tyelenol 1 gm q8h -Try to avoid narcotics given hypoxia -As needed oxycodone 5 mg -Flomax -Consult urology -Monitor UOP and strain urine -Admit to med telemetry given history of SVT #Nausea and vomiting Secondary to kidney stone. -As needed Zofran #Hypoxia secondary to narcotic administration Patient experienced hypoxia secondary to hydromorphone. Judicious use of narcotics, limited to morphine 2 mg every 2 hours as above. -As needed O2 for saturations less than 90 -Avoid narcotics #SVT/hypertension Recent diagnosis of SVT, being managed by cardiology. 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 Pursuing medical therapy with diltiazem for now. -Continue diltiazem 180 mg every morning #Hyperlipidemia Continue simvastatin 20 mg every afternoon #History of shoulder pain Managed by orthopedics scheduled for routine surgery. Has prescription for Fleischmanns 53 25 at home has taken the medication without issue in the past. -Pain control as above FENa: Healthy diet Code Status: Full code DVT PPX: Lovenox PT/OT: Ordered Case Management: Consulted Dispo: MedSurg with telemetry Jose Gaviria MD PGY 3, FCM This chart was completed utilizing [employer] voice recognition software. Grammatical errors, random word insertions, pronoun errors, and in complete sentences are an occasional consequence of the system. Any questions or concerns about the content, text, or information contained within the body of this dictation should be addressed directly to the physician for clarification. (2) Nausea & vomiting: (3) Acute right flank pain: (4) Hypertension: (5) Hyperlipidemia LDL goal <70: (6) Paroxysmal supraventricular tachycardia: (7) Prediabetes: (8) Osteopenia: History of Present Illness Primary Care Provider: LUIS Alvarenga 71-year-old female with a past medical history of prediabetes, osteopenia, plantar fasciitis, aortic insufficiency, hypertension, hyperlipidemia, and paroxysmal supraventricular tachycardia presents for evaluation of right flank pain diagnosed with 4 mm obstructing kidney stone. She presented to the emergency department noting a 2-hour history of sudden sharp right flank pain with associated nausea and vomiting she rated the pain as a 10 on a 10 noting a family history of kidney stones. On admission she denied any loss of consciousness headache, fevers, chills, diaphoresis, visual changes, neck pain, chest pain, breathing difficulty. Routine labs were obtained in the emergency department CBC was within normal limits, chemistries and CMP were acceptable, UA demonstrated 3+ blood, elevated urine WBCs. CT abdomen pelvis demonstrated obstructive 4 mm stone in the right UVJ with associated mild hydronephrosis and hydroureter. Patient was administered pain medication and subsequently experienced hypoxia. The hospital service was consulted for admission. Patient was sitting upright in bed in no acute distress. She noted that she does have a prescription of Percocet 53 25 for which she uses as needed for shoulder pain. She is being managed by orthopedics for the shoulder pain. She states she has taken the Percocet without similar drowsiness as she experienced with the hydromorphone this evening. She denies taking the medication daily and says she takes it very infrequently. When I was in the room she denied any fevers or chills, nausea or vomiting, chest pressure chest pain. She notes her pain overall is well controlled. Allergies Allergy/AdvReac Type Severity Reaction Status Date / Time No Known Allergies Allergy Verified 09/24/21 18:55 Home Medications Medication Instructions Recorded Confirmed Type calcium citrate 315 mg-vitamin D3 1 tab PO BID tab 03/19/19 09/24/21 History 5 mcg (200 unit) tablet (Calcium Citrate + D) cholecalciferol (vitamin D3) 50 2,000 units PO QAM 06/07/21 09/24/21 History mcg (2,000 unit) capsule fexofenadine 180 mg tablet 180 mg PO QAM PRN 06/07/21 09/24/21 History glucosamine-chondroitin 250 mg-200 1 tab PO BID 06/07/21 09/24/21 History mg tablet (Osteo Bi-Flex) hydrocodone 5 mg-acetaminophen 325 1 tab PO Q6H PRN #30 tab 08/04/21 09/24/21 Rx mg tablet simvastatin 20 mg tablet 20 mg PO QPM 08/20/21 09/24/21 History diltiazem HCl 180 mg 180 mg PO QAM 30 Days #30 cap 09/08/21 09/24/21 Rx capsule,extended release 24 hr Past Med/Surg History Medical History Elevated troponin History of COVID-19 DX'D [facility] 2ND WEEK 06/2021 HEADACHE, LOSS APETITE, LOSS TASTE AND SMELL, LOW FEVER,-RECOVERED AT HOME-ALL SYMPTOMS RESOLVED EXCEPT STILL HAS NO SMELL History of left breast cancer diagnosed 1995--sx/radiation History of skin cancer pt unsure what kind, removed in office Hyperlipidemia LDL goal <70 Hypertension NSTEMI (non-ST elevated myocardial infarction) PT DENIES Osteoarthritis Osteopenia HX Overactive bladder HX Paroxysmal supraventricular tachycardia F/U Dr. 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 Sensorineural hearing loss Spinal stenosis SVT (supraventricular tachycardia) SEEN [facility] -F/U DR GOSS Surgical History History of arthroscopy of left knee meniscus repair History of colonoscopy History of left breast biopsy malignant History of lumbar spinal fusion History of right knee surgery History of tooth extraction Hx of bilateral cataract extraction Family History Mother Myocardial infarction Family history of diabetes mellitus Sister Family history of diabetes mellitus Sister Family history of diabetes mellitus Other Family history non-contributory No family history of adverse response to anesthesia Denies family history of Ovarian cancer Prostate cancer Breast cancer Colorectal cancer Social History Smoking Status: Never smoker Second Hand Exposure: No; Hx Alcohol Use: No Hx Substance Use: No Preferred Language: Ukrainian Communication Ability: Effective 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 Required: No Beliefs That Will Affect Care: None marital status: Single Current Living Situation: Family Current Living Situation Comment: SON current occupational status: employed and 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 How many Children do You have: 2 Other Information That Helps Us Care for You: No Feels Safe at Home: Yes Safety Concerns: Feels Safe At This Time Childhood Exposure to Second-Hand Smoke: Yes caffeine: No Dental Care, Regularly: Yes Physical Activity Frequency: Daily Seatbelt Use: always Sunscreen Use: Yes (sometimes) Assistive Devices: Glasses Review of Systems Review of Systems: as above Physical Exam Physical Exam: General: No acute distress HEENT: Normocephalic atraumatic Neck: No significant lymphadenopathy, trachea midline, normal to visual inspection Cardiac: Regular rate and rhythm, normal S1, normal S2, I did not appreciated any significant murmurs rubs or gallops, I did not appreciate any significant pedal edema, No calf tenderness, capillary refill is less than 3 seconds Respiratory: Clear to auscultation bilaterally with symmetrical chest rise, I did not appreciate any significant wheezes, rales, rhonchi, no increased work of breathing GI: Normal bowel sounds, soft, nontender in all 4 quadrants, nondistended, negative CVA tenderness MSK: No sensory or motor changes, moves all extremities without issue, extremities are warm and well-perfused Skin: Enigma, clean, dry, intact. Neuro: Alert and oriented x4 Psych: Calm, cooperative, logical thought process Results & Data Results & Data ([facility]) Vital Signs (Past 12 Hours) Vital Signs Temp Pulse Pulse Resp BP BP Pulse Ox 09/24/21 23:22 67 12 86 L 09/24/21 23:21 68 14 78 L 09/24/21 23:12 63 26 H 88 L 09/24/21 23:00 73 14 97 09/24/21 22:30 66 24 90 09/24/21 22:00 57 L 69 12 140/90 96 09/24/21 21:30 61 14 95 09/24/21 21:00 60 14 95 09/24/21 20:30 60 14 94 09/24/21 20:22 59 L 18 144/92 H 94 09/24/21 20:05 67 23 144/92 H 95 09/24/21 20:00 65 23 94 09/24/21 19:30 72 16 95 09/24/21 19:15 57 L 15 96 09/24/21 19:04 95 09/24/21 18:58 62 18 176/81 H 93 09/24/21 18:26 36.8 C 75 20 143/100 H 95 Laboratory Results 09/24/21 09/24/21 09/24/21 Range/Units 23:27 22:17 19:31 WBC (4.8-10.8) K/uL RBC (4.2-5.4) M/uL Hgb (12.0-16.0) g/dL Hct (37-47) % MCV (80-100) fL MCH (25-34) pg MCHC (32-36) g/dL RDW Std Deviation (36.4-46.3) fL RDW Coeff of Denisha (11.5-14.5) % Plt Count (130-400) K/uL MPV (7.4-10.4) fL Immature Gran % (Auto) % Neut % (Auto) % Lymph % (Auto) % Gilmer % (Auto) % Eos % (Auto) % Baso % (Auto) % Neut # (Auto) (1.4-6.5) K/uL Lymph # (Auto) (1.2-3.4) K/uL Gilmer # (Auto) (0.11-0.59) K/uL Eos # (Auto) (0-0.5) K/uL Baso # (Auto) (0-0.2) K/uL Immature Gran # (Auto) (0.00-0.02) K/uL Sodium (136-145) mmol/L Potassium 3.7 (3.5-5.1) mmol/L Chloride (98-107) mmol/L Carbon Dioxide (21-32) mmol/L Anion Gap (3-11) BUN (6-23) mg/dl Creatinine (0.6-1.2) mg/dl Est Cr Clr Drug Dosing ml/min Est GFR ( Amer) ml/min Est GFR (Non-Af Amer) ml/min BUN/Creatinine Ratio (10-20) Glucose (70-99(Fasting)) mg/dl Calcium (8.5-10.1) mg/dl Total Bilirubin (0.2-1.0) mg/dl AST 15 (13-39) U/L ALT (7-52) U/L Alkaline Phosphatase (34-104) U/L Total Protein (6.0-8.3) gm/dl Albumin (3.4-5.0) gm/dl Globulin (2.5-4.0) gm/dl Albumin/Globulin Ratio (0.9-2) Lipase (11-82) U/L Urine Color Yellow Urine Appearance Cloudy A (Clear) Urine pH 5.0 (4.5-7.5) Ur Specific Urania 1.028 (1.000-1.030) Urine Protein Trace H (Negative) Urine Glucose (UA) Negative (Negative) Urine Ketones Negative (Negative) Urine Blood 3+ H (Negative) Urine Nitrite Negative (Negative) Urine Bilirubin Negative (Negative) Urine Urobilinogen Negative (Negative) Ur Leukocyte Esterase Trace H (Negative) Urine WBC (Auto) >30 H (0-5) /hpf Urine RBC (Auto) >30 H (0-4) /hpf U Hyaline Cast (Auto) 10-30 H (0-5) /lpf U Epithel Cells (Auto) >30 H (0-5) /lpf Urine Bacteria (Auto) Negative (Negative) SARS-CoV-2, RNA, NAAT Pending 09/24/21 09/24/21 Range/Units 18:49 18:49 WBC 9.73 (4.8-10.8) K/uL RBC 4.94 (4.2-5.4) M/uL Hgb 15.0 (12.0-16.0) g/dL Hct 44.3 (37-47) % MCV 89.7 (80-100) fL MCH 30.4 (25-34) pg MCHC 33.9 (32-36) g/dL RDW Std Deviation 45.8 (36.4-46.3) fL RDW Coeff of Denisha 14.0 (11.5-14.5) % Plt Count 278 (130-400) K/uL MPV 10.6 H (7.4-10.4) fL Immature Gran % (Auto) 0.1 % Neut % (Auto) 79.0 % Lymph % (Auto) 12.6 % Gilmer % (Auto) 7.4 % Eos % (Auto) 0.8 % Baso % (Auto) 0.1 % Neut # (Auto) 7.68 H (1.4-6.5) K/uL Lymph # (Auto) 1.23 (1.2-3.4) K/uL Gilmer # (Auto) 0.72 H (0.11-0.59) K/uL Eos # (Auto) 0.08 (0-0.5) K/uL Baso # (Auto) 0.01 (0-0.2) K/uL Immature Gran # (Auto) 0.01 (0.00-0.02) K/uL Sodium 139 (136-145) mmol/L Potassium (3.5-5.1) mmol/L Chloride 104 (98-107) mmol/L Carbon Dioxide 29 (21-32) mmol/L Anion Gap 6 (3-11) BUN 15 (6-23) mg/dl Creatinine 0.99 (0.6-1.2) mg/dl Est Cr Clr Drug Dosing 49.5 ml/min Est GFR ( Amer) 65.5 ml/min Est GFR (Non-Af Amer) 56.5 ml/min BUN/Creatinine Ratio 15.2 (10-20) Glucose 121 H (70-99(Fasting)) mg/dl Calcium 9.3 (8.5-10.1) mg/dl Total Bilirubin 0.5 (0.2-1.0) mg/dl AST (13-39) U/L ALT 24 (7-52) U/L Alkaline Phosphatase 60 (34-104) U/L Total Protein 7.1 (6.0-8.3) gm/dl Albumin 4.4 (3.4-5.0) gm/dl Globulin 2.7 (2.5-4.0) gm/dl Albumin/Globulin Ratio 1.6 (0.9-2) Lipase 31 (11-82) U/L Urine Color Urine Appearance (Clear) Urine pH (4.5-7.5) Ur Specific Urania (1.000-1.030) Urine Protein (Negative) Urine Glucose (UA) (Negative) Urine Ketones (Negative) Urine Blood (Negative) Urine Nitrite (Negative) Urine Bilirubin (Negative) Urine Urobilinogen (Negative) Ur Leukocyte Esterase (Negative) Urine WBC (Auto) (0-5) /hpf Urine RBC (Auto) (0-4) /hpf U Hyaline Cast (Auto) (0-5) /lpf U Epithel Cells (Auto) (0-5) /lpf Urine Bacteria (Auto) (Negative) SARS-CoV-2, RNA, NAAT Medications Administered Current Inpatient Medications Hydromorphone HCl (Hydromorphone Inj 0.5 Mg/0.5 Ml Syr) 0.5 mg IV Q15M PRN PRN Reason: Pain Stop: 10/08/21 18:38 Last Admin: 09/24/21 18:46 Dose: 0.5 mg Documented by: Supervising Physician Co-Signing Physician Notes Patient seen and examined, chart reviewed, case discussed with Dr. Jamie May and I agree with his assessment and plan as above. Patient with obstructing 4mm stone in right UVJ with mild hydronephrosis and hydroureter. Hypoxic in ER after receiving Dilaudid (small doses - 0.5mg then 0.25mg) Exam unremarkable Afebrile, HD stable +S1/S2, regular, no m/r/g Lungs - CTA Abd - +BS, soft, NT/ND Ext - well perfused, no edema Labs and images reviewed No leukocytosis. Renal function intact. UA without bacteria Assessment/Plan -pain control, avoidance of narcotics -antiemetics -IVF, Flomax, urine strainer -Urology consultation appreciated -Remainder as above (1) Hypertension Hypertension type: primary hypertension Qualified Code(s): I10 - Essential (primary) hypertension
[2021-09-25] MEDS ORDERED: ONDANSETRON INJ 2 MG/ML 2 ML VIAL IV PRN ×2 (00:14→10:44)
[2021-09-25] MEDS ORDERED: oxyCODONE HCL IR 5 MG TAB (IMMEDIATE RELEASE) PO PRN (00:14)
[2021-09-25] MEDS ORDERED: KETOROLAC TROMETHAMINE 15 MG/ML VIAL IV PRN (00:14)
[2021-09-25] MEDS ORDERED: HYDROCODONE/ACETAMOPHEN 5/325MG TAB PO PRN (01:09)
[2021-09-25] MEDS ORDERED: FEXOFENADINE HCL 180 MG TAB PO PRN (01:09)
--- NOTE | 2021-09-25 01:14 | Urology Consultation ---
Date of Consultation September 25, 2021 Assessment & Plan (1) Urinary tract obstruction by kidney stone: Patient has been admitted on the hospitalist service. Recommend proceeding as follows: Provide analgesics Provide antiemetics Provide hydration with IV fluid Provide Flomax for expulsive therapy Strain all urine and save any kidney stones retrieved Keep patient n.p.o. for the present time that way in the event cystoscopy is required she will be ready. If cystoscopy is not deemed necessary in the morning her diet can be advanced. History of Present Illness Reason for Consultation: Nephrolithiasis Attending Physician: Mare Gaviria DO History of Present Illness This 71-year-old female who presented to the emergency department this evening secondary to right-sided flank pain. She notes that the pain was primarily located in the right flank with radiation to the groin. She did have associated nausea vomiting. She denies any fevers, shakes, chills. She denies any dysuria or hematuria. Patient notes that she has no prior history of kidney stones. In the emergency department the patient had labs and imaging which I independently reviewed. CT scan of the abdomen and pelvis showed the patient had a 4 mm stone at the right ureterovesical junction with hydronephrosis. CBC revealed white blood cell count, hemoglobin, hematocrit, and platelet count were all normal. Chemistry profile showed sodium, potassium, BUN, and creatinine were all normal. Urinalysis showed greater than 30 white blood cells per high- power field. The specimen was negative for nitrites and did show trace leukocyte esterase. A Covid test was noted to be negative. At the time of my interview the patient noted that her symptoms had improved and she was resting comfortably in bed in no distress. Allergies Allergy/AdvReac Type Severity Reaction Status Date / Time No Known Allergies Allergy Verified 09/24/21 18:55 Home Medications Medication Instructions Recorded Confirmed Type calcium citrate 315 mg-vitamin D3 1 tab PO BID tab 03/19/19 09/24/21 History 5 mcg (200 unit) tablet (Calcium Citrate + D) cholecalciferol (vitamin D3) 50 2,000 units PO QAM 06/07/21 09/24/21 History mcg (2,000 unit) capsule fexofenadine 180 mg tablet 180 mg PO QAM PRN 06/07/21 09/24/21 History glucosamine-chondroitin 250 mg-200 1 tab PO BID 06/07/21 09/24/21 History mg tablet (Osteo Bi-Flex) hydrocodone 5 mg-acetaminophen 325 1 tab PO Q6H PRN #30 tab 08/04/21 09/24/21 Rx mg tablet simvastatin 20 mg tablet 20 mg PO QPM 08/20/21 09/24/21 History diltiazem HCl 180 mg 180 mg PO QAM 30 Days #30 cap 09/08/21 09/24/21 Rx capsule,extended release 24 hr Patient History Medical History Elevated troponin History of COVID-[address] [facility] 2ND WEEK 06/2021 HEADACHE, LOSS APETITE, LOSS TASTE AND SMELL, LOW FEVER,-RECOVERED AT HOME-ALL SYMPTOMS RESOLVED EXCEPT STILL HAS NO SMELL History of left breast cancer diagnosed 1995--sx/radiation History of skin cancer pt unsure what kind, removed in office Hyperlipidemia LDL goal <70 Hypertension NSTEMI (non-ST elevated myocardial infarction) PT DENIES Osteoarthritis Osteopenia HX Overactive bladder HX Paroxysmal supraventricular tachycardia F/U Dr. 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 -F/U DR GOSS Surgical History History of arthroscopy of left knee meniscus repair History of colonoscopy History of left breast biopsy malignant History of lumbar spinal fusion History of right knee surgery History of tooth extraction Hx of bilateral cataract extraction Family History Mother Myocardial infarction Family history of diabetes mellitus Sister Family history of diabetes mellitus Sister Family history of diabetes mellitus Other Family history non-contributory No family history of adverse response to anesthesia Denies family history of Ovarian cancer Prostate cancer Breast cancer Colorectal cancer Social History Smoking Status: Never smoker Second Hand Exposure: No; Hx Alcohol Use: Yes Alcohol type: wine Alcohol Intake Frequency: Monthly or Less Hx Substance Use: Yes Preferred Language: French Communication Ability: Effective Housekeeper And Laundry 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 Required: No Beliefs That Will Affect Care: None marital status: Single Current Living Situation: Family Current Living Situation Comment: SON current occupational status: employed and 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 How many Children do You have: 2 Feels Safe at Home: Yes Childhood Exposure to Second-Hand Smoke: Yes caffeine: No Dental Care, Regularly: Yes Physical Activity Frequency: Daily Seatbelt Use: always Sunscreen Use: Yes (sometimes) Assistive Devices: None Review of Systems Constitutional: no fever and no chills Eyes: no diplopia Ear, Nose, Mouth, Throat: no ear pain Respiratory: no cough Cardiovascular: no chest pain Gastrointestinal: + abdominal pain (Radiating from right flank), + nausea and + vomiting Genitourinary: as per Subjective / HPI Musculoskeletal: + back pain (Right flank) Integumentary: no rash Neurologic: no localized weakness Physical Exam Constitutional: WD/WN, vitals as above Eyes: no conjunctival abnormality ENMT: Ears: no hearing impairment Neck: trachea midline Respiratory: normal respiratory effort; no respiratory distress and no labored breathing Cardiovascular: Rate/Rhythm: regular rate and regular rhythm Gastrointestinal (Abdomen): Soft, nontender, nondistended Musculoskeletal: No calf tenderness Skin: no rashes Neurologic: moves all extremities Psychiatric: A+Ox3, euthymic affect Genitourinary: no CVA tenderness Results & Data ([facility]) Vital Signs (Past 12 Hours) Vital Signs Temp Pulse Pulse Resp BP BP Pulse Ox 09/25/21 00:00 68 16 99 09/24/21 23:30 60 19 98 09/24/21 23:22 67 12 86 L 09/24/21 23:21 68 14 78 L 09/24/21 23:12 63 26 H 88 L 09/24/21 23:00 73 14 97 09/24/21 22:30 66 24 90 09/24/21 22:00 57 L 69 12 140/90 96 09/24/21 21:30 61 14 95 09/24/21 21:00 60 14 95 09/24/21 20:30 60 14 94 09/24/21 20:22 59 L 18 144/92 H 94 09/24/21 20:05 67 23 144/92 H 95 09/24/21 20:00 65 23 94 09/24/21 19:30 72 16 95 09/24/21 19:15 57 L 15 96 09/24/21 19:04 95 09/24/21 18:58 62 18 176/81 H 93 09/24/21 18:26 36.8 C 75 20 143/100 H 95 PG Care Time/CCT Total # of Minutes Spent Total Time Spent with Patient: Total time spent is greater than 50% in coordination of care (as documented) at patient's floor/unit and/or counseling patient: Coding Level of Care Code 60350 Inpt Consult Level 5 Diagnoses Urinary tract obstruction by kidney stone N20.0; N13.8
--- NOTE | 2021-09-25 01:49 | Billing Data ---
Date of Service September 25, 2021 Coding Level of Care Code INT OBSERVATION CARE 50M LVL 2
[2021-09-25] MEDS: ACETAMINOPHEN 500 MG TAB PO SCH ×4 (02:06→23:02)
--- NOTE | 2021-09-25 07:43 | Hospitalist Progress Note ---
Date of Service September 25, 2021 Assessment & Plan (1) Urinary tract obstruction by kidney stone: Plan: 71-year-old female with a past medical history of prediabetes, osteopenia, plantar fasciitis, aortic insufficiency, hypertension, hyperlipidemia, and paroxysmal supraventricular tachycardia presents for evaluation of right flank pain diagnosed with 4 mm obstructing kidney stone. Urinary tract obstruction secondary to kidney stone -Pain control with Toradol 15 mg q12 and tyelenol 1 gm q8h - norco 5/325 q6h prn -Flomax -Urology consult ; NPO for possible cystoscopy vs. lithotripsy -Monitor UOP and strain urine - urine culture pending - ceftriaxone for UTI tx - LR for maintenance fluids Nausea and vomiting Secondary to kidney stone. -As needed Zofran, controlled Hypoxia secondary to narcotic administration Patient experienced hypoxia secondary to hydromorphone. -As needed O2 for saturations less than 90 -Avoid narcotics #SVT/hypertension Recent diagnosis of SVT, being managed by cardiology. 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 Pursuing medical therapy with diltiazem for now. -Continue diltiazem 180 mg every morning #Hyperlipidemia Continue simvastatin 20 mg every afternoon #History of shoulder pain Managed by orthopedics scheduled for routine surgery. Has prescription for [place] 53 [phone] at home has taken the medication without issue in the past. -Pain control as above FENa: Healthy diet Code Status: Full code DVT PPX: Movement ad chely Dispo: MedSurg with telemetry (2) Nausea & vomiting: (3) Acute right flank pain: (4) Hypertension: (5) Hyperlipidemia LDL goal <70: (6) Paroxysmal supraventricular tachycardia: (7) Prediabetes: (8) Osteopenia: Admission and Anticipated Discharge Date Admission Date: September 25, 2021 Supervising Physician Co-Signing Physician Notes I also saw the patient independently and confirmed godoy portions of the history and physical examination. I agree with impression and plan as noted in the resident documentation. Upon my examination, the patient was in her room eating lunch, post operative. She denies any pain. No nausea or vomiting. Exam Pleasant alert. No distress appreciated. Heart regular. Regular rhythm. Lungs clear with nonlabored respirations Abdomen soft and nontender Data Hemoglobin 15, WBC 9.73. BUN 15, creatinine 0.99 Urine cultures pending Assessment and Plan Ureterolithiasis, With obstruction 4 mm right kidney stone now status post cystoscopy, right ureteroscopy, ureteral dilatation, basket stone extraction and stent insertion Recheck renal function in a.m. Continue ceftriaxone until return of urine culture Anticipate discharge in a.m. Noted history of recent SVT No sign of recurrence; monitor overnight Subjective 71 yo F admitted for UTI secondary to nephrolithiasis with hydroureter and minimal hydronephrosis. Feeling better this morning with pain control. Denies any pain with urination, burning with urination, hematuria. States she has to frequently urinate on a normal day and goes 3-4 times a day and during the night as well. no hx of kidney stones. No n/v. Review of Systems Review of Systems: All systems reviewed & are unremarkable except as noted in Subjective Physical Exam Physical Exam: Constitutional: in no apparent distress, sitting comfortably in bed. Eyes: EOMI, pupils equal and reactive bilaterally, no scleral icterus Cardiac: RRR, no murmurs, gallops or rubs. Normal S1, S2 Pulm: CTA BL, no wheezes, rhonchi, crackles or rubs, moving air well throughout both lungs Abd: soft, nontender, nondistended, normal bowel sounds, no rebound or guarding Extremities: 2+ peripheral pulses, no edema Neuro: A&Ox3 Results & Data Results & Data ([facility]) Vital Signs (Past 12 Hours) Vital Signs Temp Pulse Pulse Resp BP BP Pulse Ox 09/25/21 03:12 37 C 70 16 117/69 96 09/25/21 01:20 36.7 C 71 18 152/84 H 97 09/25/21 00:54 78 09/25/21 00:00 68 16 99 09/24/21 23:30 60 19 98 09/24/21 23:22 67 12 86 L 09/24/21 23:21 68 14 78 L 09/24/21 23:12 63 26 H 88 L 09/24/21 23:00 73 14 97 09/24/21 22:30 66 24 90 09/24/21 22:00 57 L 69 12 140/90 96 09/24/21 21:30 61 14 95 09/24/21 21:00 60 14 95 09/24/21 20:30 60 14 94 09/24/21 20:22 59 L 18 144/92 H 94 09/24/21 20:05 67 23 144/92 H 95 09/24/21 20:00 65 23 94 Laboratory Results Laboratory Results WBC 9.73 K/uL (4.8-10.8) 09/24/21 18:49 RBC 4.94 M/uL (4.2-5.4) 09/24/21 18:49 Hgb 15.0 g/dL (12.0-16.0) 09/24/21 18:49 Hct 44.3 % (37-47) 09/24/21 18:49 MCV 89.7 fL (80-100) 09/24/21 18:49 MCH 30.4 pg (25-34) 09/24/21 18:49 MCHC 33.9 g/dL (32-36) 09/24/21 18:49 RDW Std Deviation 45.8 fL (36.4-46.3) 09/24/21 18:49 RDW Coeff of Denisha 14.0 % (11.5-14.5) 09/24/21 18:49 Plt Count 278 K/uL (130-400) 09/24/21 18:49 MPV 10.6 fL (7.4-10.4) H 09/24/21 18:49 Immature Gran % (Auto) 0.1 % 09/24/21 18:49 Neut % (Auto) 79.0 % 09/24/21 18:49 Lymph % (Auto) 12.6 % 09/24/21 18:49 [place] % (Auto) 7.4 % 09/24/21 18:49 Eos % (Auto) 0.8 % 09/24/21 18:49 Baso % (Auto) 0.1 % 09/24/21 18:49 Neut # (Auto) 7.68 K/uL (1.4-6.5) H 09/24/21 18:49 Lymph # (Auto) 1.23 K/uL (1.2-3.4) 09/24/21 18:49 [place] # (Auto) 0.72 K/uL (0.11-0.59) H 09/24/21 18:49 Eos # (Auto) 0.08 K/uL (0-0.5) 09/24/21 18:49 Baso # (Auto) 0.01 K/uL (0-0.2) 09/24/21 18:49 Immature Gran # (Auto) 0.01 K/uL (0.00-0.02) 09/24/21 18:49 Sodium 139 mmol/L (136-145) 09/24/21 18:49 Potassium 3.7 mmol/L (3.5-5.1) 09/24/21 19:31 Chloride 104 mmol/L (98-107) 09/24/21 18:49 Carbon Dioxide 29 mmol/L (21-32) 09/24/21 18:49 Anion Gap 6 (3-11) 09/24/21 18:49 BUN 15 mg/dl (6-23) 09/24/21 18:49 Creatinine 0.99 mg/dl (0.6-1.2) 09/24/21 18:49 Est Cr Clr Drug Dosing 49.5 ml/min 09/24/21 18:49 Est GFR ( Amer) 65.5 ml/min 09/24/21 18:49 Est GFR (Non-Af Amer) 56.5 ml/min 09/24/21 18:49 BUN/Creatinine Ratio 15.2 (10-20) 09/24/21 18:49 Glucose 121 mg/dl (70-99(Fasting)) H 09/24/21 18:49 Calcium 9.3 mg/dl (8.5-10.1) 09/24/21 18:49 Total Bilirubin 0.5 mg/dl (0.2-1.0) 09/24/21 18:49 AST 15 U/L (13-39) 09/24/21 19:31 ALT 24 U/L (7-52) 09/24/21 18:49 Alkaline Phosphatase 60 U/L (34-104) 09/24/21 18:49 Total Protein 7.1 gm/dl (6.0-8.3) 09/24/21 18:49 Albumin 4.4 gm/dl (3.4-5.0) 09/24/21 18:49 Globulin 2.7 gm/dl (2.5-4.0) 09/24/21 18:49 Albumin/Globulin Ratio 1.6 (0.9-2) 09/24/21 18:49 Lipase 31 U/L (11-82) 09/24/21 18:49 Urine Color Yellow 09/24/21 22:17 Urine Appearance Cloudy (Clear) A 09/24/21 22:17 Urine pH 5.0 (4.5-7.5) 09/24/21 22:17 Ur Specific [place] 1.028 (1.000-1.030) 09/24/21 22:17 Urine Protein Trace (Negative) H 09/24/21 22:17 Urine Glucose (UA) Negative (Negative) 09/24/21 22:17 Urine Ketones Negative (Negative) 09/24/21 22:17 Urine Blood 3+ (Negative) H 09/24/21 22:17 Urine Nitrite Negative (Negative) 09/24/21 22:17 Urine Bilirubin Negative (Negative) 09/24/21 22:17 Urine Urobilinogen Negative (Negative) 09/24/21 22:17 Ur Leukocyte Esterase Trace (Negative) H 09/24/21 22:17 Urine WBC (Auto) >30 /hpf (0-5) H 09/24/21 22:17 Urine RBC (Auto) >30 /hpf (0-4) H 09/24/21 22:17 U Hyaline Cast (Auto) 10-30 /lpf (0-5) H 09/24/21 22:17 U Epithel Cells (Auto) >30 /lpf (0-5) H 09/24/21 22:17 Urine Bacteria (Auto) Negative (Negative) 09/24/21 22:17 SARS-CoV-2, RNA, NAAT NEGATIVE (NEGATIVE) 09/24/21 23:27 Impressions Abdomen/Pelvis CT 09/24/21 18:39 CT abd pelvis wo con CLINICAL HISTORY: right flank pain TECHNIQUE: Helical axial images of the abdomen and pelvis were obtained. Automated dose lowering techniques and/or adjustment according to patient size were utilized for this exam. This exam was performed without intravenous contrast. COMPARISON: None available at the time of this dictation. FINDINGS: Lower chest: Bibasilar atelectasis versus scarring is seen. Liver: Unremarkable. No focal lesions are seen. Gallbladder and biliary tree: No calcified gallstones. Normal caliber wall. No intra- or extrahepatic biliary ductal dilation. Pancreas: Unremarkable, no focal lesions. Spleen: Unremarkable. Adrenals: Unremarkable. Kidneys and ureters: There is an obstructive stone at the right UVJ measuring 4 mm with associated hydroureter and mild hydronephrosis. Parapelvic cysts are seen bilaterally. Bladder: Limited evaluation due to underdistention. Reproductive organs: Unremarkable. Bowel: Unremarkable appearance of the bowel. The appendix is normal. Lymph nodes Retroperitoneal: Unremarkable. Mesenteric: Unremarkable. Pelvic: Unremarkable. Peritoneum: Normal. Vessels: Atherosclerotic calcifications are seen. Abdominal wall: Unremarkable. Bones: Posterior fixation hardware is seen and multilevel degenerative changes noted. IMPRESSION: Obstructive 4 mm stone in the right UVJ with associated mild hydronephrosis and hydroureter. ACT 112: Negative or not required by law. Electronically signed by: Eriberto Ordoñez M.D. 09/24/2021 7:28 PM Resident Activity Tracking Resident Involvement: Resident Care Provided Care Provided: Adult Hospital Medicine (1) Hypertension Hypertension type: primary hypertension Qualified Code(s): I10 - Essential (primary) hypertension
[2021-09-25] MEDS: cefTRIAXone SODIUM 2,000 MG in DEXTROSE 5% 50 ML IV SCH (07:48)
[2021-09-25] MEDS: TAMSULOSIN HCL 0.4 MG CAP PO SCH (07:48)
[2021-09-25] MEDS: CHOLECALCIFEROL 1,000 UNITS 25 MCG TAB PO SCH (07:49)
[2021-09-25] MEDS: dilTIAZem HCL 180 MG CAPCR PO SCH (07:49)
[2021-09-25] MEDS: CALCIUM CITRATE 950 MG TAB PO SCH ×2 (07:50→20:27)
[2021-09-25] MEDS ORDERED: POLYETHYLENE (MIRALAX) 17 GM PACK PO SCH (09:00)
[2021-09-25] MEDS ORDERED: GLUCOSAMINE SULFATE 500 MG CAP PO SCH (09:00)
[2021-09-25] MEDS ORDERED: ENOXAPARIN INJ 40 MG/0.4 ML SYR SQ SCH (09:00)
[2021-09-25] MEDS: LACTATED RINGER'S 1,000 ML IV SCH ×2 (10:32→20:27)
--- NOTE | 2021-09-25 10:35 | Anesthesiology Consultation ---
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 History Surgery Operation Date: 09/25/21 10:25 Proposed Procedures p Cystoscopy - Waldemar Gallo DO s Ureteral Stent Insertion/Removal - Waldemar Gallo DO Height/Weight Height: 5 ft Weight: 87.5 kg Allergies Allergy/AdvReac Type Severity Reaction Status Date / Time No Known Allergies Allergy Verified 09/24/21 18:55 Medications Home Medications Medication Instructions Recorded Confirmed Last Taken calcium citrate 315 mg-vitamin D3 1 tab PO BID tab 03/19/19 09/24/21 09/24/21 5 mcg (200 unit) tablet (Calcium Citrate + D) cholecalciferol (vitamin D3) 50 2,000 units PO QAM 06/07/21 09/24/21 09/24/21 mcg (2,000 unit) capsule fexofenadine 180 mg tablet 180 mg PO QAM PRN 06/07/21 09/24/21 08/18/21 glucosamine-chondroitin 250 mg-200 1 tab PO BID 06/07/21 09/24/21 09/24/21 mg tablet (Osteo Bi-Flex) hydrocodone 5 mg-acetaminophen 325 1 tab PO Q6H PRN #30 tab 08/04/21 09/24/21 Un known mg tablet simvastatin 20 mg tablet 20 mg PO QPM 08/20/21 09/24/21 09/24/21 diltiazem HCl 180 mg 180 mg PO QAM 30 Days #30 cap 09/08/21 09/24/21 09/24/21 capsule,extended release 24 hr Active Medications Generic Name Dose Route Start Last Admin Trade Name Rickiq PRN Reason Stop Dose Admin Acetaminophen 1,000 mg 09/25/21 00:15 09/25/21 07:52 Acetaminophen 500 Mg Tab PO 10/25/21 00:14 1,000 mg Q8H RANJEET Administration Calcium Citrate 950 mg 09/25/21 09:00 09/25/21 07:50 Calcium Citrate 950 Mg Tab PO 10/25/21 08:59 950 mg BID RANJEET Administration Diltiazem HCl 180 mg 09/25/21 09:00 09/25/21 07:49 Diltiazem Hcl 180 Mg Capcr PO 10/25/21 08:59 180 mg QAM RANJEET Administration Ceftriaxone Sodium 2,000 mg/ 70 mls @ 100 mls/hr 09/25/21 08:00 09/25/21 09:05 Dextrose IV 10/05/21 07:59 Infused Q24H RANJEET Infusion Protocol Lactated Ringer's 1,000 mls @ 150 mls/hr 09/25/21 10:15 09/25/21 10:32 Lr IV 10/25/21 10:14 150 mls/hr .Q6H40M RANJEET Administration Ketorolac Tromethamine 15 mg 09/25/21 00:14 09/25/21 09:40 Ketorolac Tromethamine 15 Mg/Ml Vial IV 09/30/21 00:13 15 mg Q12H PRN Administration Pain Tamsulosin HCl 0.4 mg 09/25/21 09:00 09/25/21 07:48 Tamsulosin Hcl 0.4 Mg Cap PO 10/25/21 08:59 0.4 mg QAM RANJEET Administration Vitamin D 2,000 units 09/25/21 09:00 09/25/21 07:49 Cholecalciferol 1,000 Units 25 Mcg Tab PO 10/25/21 08:59 2,000 units QAM RANJEET Administration Past Medical History Medical History Elevated troponin History of COVID-19 DX'D [facility] 2ND WEEK 06/2021 HEADACHE, LOSS APETITE, LOSS TASTE AND SMELL, LOW FEVER,-RECOVERED AT HOME-ALL SYMPTOMS RESOLVED EXCEPT STILL HAS NO SMELL History of left breast cancer diagnosed 1995--sx/radiation History of skin cancer pt unsure what kind, removed in office Hyperlipidemia LDL goal <70 Hypertension NSTEMI (non-ST elevated myocardial infarction) PT DENIES Osteoarthritis Osteopenia HX Overactive bladder HX Paroxysmal supraventricular tachycardia F/U Dr. 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 Sensorineural hearing loss Spinal stenosis SVT (supraventricular tachycardia) SEEN [facility] -F/U DR GOSS Past Family History Family History Mother Myocardial infarction Family history of diabetes mellitus Sister Family history of diabetes mellitus Sister Family history of diabetes mellitus Other Family history non-contributory No family history of adverse response to anesthesia Denies family history of Ovarian cancer Prostate cancer Breast cancer Colorectal cancer Past Surgical History Surgical History History of arthroscopy of left knee meniscus repair History of colonoscopy History of left breast biopsy malignant History of lumbar spinal fusion History of right knee surgery History of tooth extraction Hx of bilateral cataract extraction Social History Smoking Status: Never smoker Hx Alcohol Use: No Alcohol type: wine alcohol intake frequency: holidays/special occasions only Hx Substance Use: No substance use type: prescription drug Physical Exam Vital Signs Last Vital Signs Temp 98.2 F 09/25/21 07:52 Pulse 67 09/25/21 07:52 Resp 19 09/25/21 07:52 BP 144/78 H 09/25/21 07:52 Pulse Ox 94 09/25/21 08:09 Testing Laboratory Results 09/24/21 18:49 09/24/21 19:31 Urine Color Yellow 09/24/21 22:17 Urine Appearance Cloudy (Clear) A 09/24/21 22:17 Urine pH 5.0 (4.5-7.5) 09/24/21 22:17 Ur Specific [place] 1.028 (1.000-1.030) 09/24/21 22:17 Urine Protein Trace (Negative) H 09/24/21 22:17 Urine Glucose (UA) Negative (Negative) 09/24/21 22:17 Urine Ketones Negative (Negative) 09/24/21 22:17 Urine Nitrite Negative (Negative) 09/24/21 22:17 Ur Leukocyte Esterase Trace (Negative) H 09/24/21 22:17 Urine WBC (Auto) >30 /hpf (0-5) H 09/24/21 22:17 Urine RBC (Auto) >30 /hpf (0-4) H 09/24/21 22:17 U Hyaline Cast (Auto) 10-30 /lpf (0-5) H 09/24/21 22:17 U Epithel Cells (Auto) >30 /lpf (0-5) H 09/24/21 22:17 Urine Bacteria (Auto) Negative (Negative) 09/24/21 22:17 Electrocardiogram Date: 09/07/21 Normal sinus rhythm, rate 84 bpm Left atrial enlargement Left ventricular hypertrophy Abnormal ECG When compared with ECG of 07-SEP-2021 19:15, Supraventricular tachycardia no longer present Vent. rate has decreased BY 77 BPM Confirmed by Nicolas Gan ([id number]) on 09/08/2021 8:44:36 AM Chest X-Ray Date: 09/07/21 Findings: + NAD Echocardiogram Date: 09/08/21 Compared with 11/02/18 study, mild valvular disease now seen (AI/TR) and mild pulmonary HTN noted LV is normal in structure and function EF 55-60% LV wall motion is normal RV is normal in size and function Mild AR Mild TR RVSP is elevated at 30-40mmHg
[2021-09-25] MEDS ORDERED: fentaNYL citrate 100 MCG/2 ML VIAL IV PRN (10:44)
[2021-09-25] MEDS ORDERED: ATROPINE SULFATE 0.1 MG/ML 10ML SYR IV PRN (10:44)
[2021-09-25] MEDS ORDERED: ePHEDrine sulfate 50 MG/ML AMP IV PRN (10:44)
--- NOTE | 2021-09-25 10:53 | History & Physical Bridge Note ---
Date of Service September 25, 2021 History & Physical Bridge Note I have examined the patient, reviewed the History & Physical and in the interval since the performance of the History & Physical I have noted the following changes of clinical significance: no changes noted Cystoscopy with right stent. Possible ureteroscopy
[2021-09-25] MEDS ORDERED: MIDAZOLAM HCL 1 MG/ML 2ML VIAL ONE (11:23)
[2021-09-25] MEDS ORDERED: LIDOCAINE 2% 2 ML VIAL/AMP(20MG/ML) INFIL ONE (11:23)
[2021-09-25] MEDS ORDERED: PROPOFOL IV EMULSION 10 MG/ML 20 ML VIAL IV ONE ×2 (11:23→12:11)
[2021-09-25] MEDS ORDERED: fentaNYL citrate 100 MCG/2 ML VIAL ONE (11:23)
--- NOTE | 2021-09-25 12:21 | Operative Report ---
PG Post Operative Report Pre & Post Diagnosis Operation Date: 09/25/21 10:25 Pre-Op Diagnosis: RIGHT KIDNEY STONE Post-Op Diagnosis: RIGHT KIDNEY STONE I identified the patient and participated in the time-out.: Yes Procedure Operation Date: 09/25/21 10:25 Actual Procedures p Cystoscopy(Right) - Waldemar Gallo DO s Right Ureteroscopy, Ureteral dilation, Basket Stone Extraction, Urine Aspiration, Right Retrograde pyelogram, and Stent Insertion - Waldemar Gallo DO Surgeon Waldemar Gallo, CELESTE, DO [employer] Officer None Estimated Blood Loss 1 Findings Consistent with Post-Op Diagnosis Stone removed and stricture dilated. Large amount of dark, blood tinged urine proximal to obstruction Specimens Stone urine right kidney Drains 6 Fr x 24 Anesthesia Type General Complications none Disposition Disposition: Recovery Room Indications Patient with bothersome stones. Risks and benefits discussed at length. Description of Procedure Patient was consented and brought back to the operating room. Patient was placed under anesthesia in the supine position and moved to the dorsal lithotomy position. Patient was prepped and draped in the regular sterile fashion. A time out was completed. A 30degree Cystoscope was placed into the bladder and the entire bladder was examined. The UO's were identified. The UO was cannulized with a catheter and a retrograde pyelogram was completed. A wire was then placed. The Rigid ureteroscope was taken into the ureter. The stone was identified just proximal and impacted into a strictured area of the distal ureter. The stone was displaced and the area dilated. With dilation complete, the stone was grasped and removed and sent for analysis. A large amount of dark red urine was appreciated with old clot material. Urine was aspirated from the renal pelvis and sent for culture. The entire area was once again examined. No residual large fragments or areas of concern were noted. The scope was slowly removed with the wire left in place. Contrast was placed through the scope for a pyelogram to assist in stent placement. The entire ureter was examined as the scope was slowly removed. No obstructions or other areas of concern were noted. With the wire in place, a 6 Fr Double J stent was placed. It was confirmed with fluoroscopy. With the stent in place, the bladder was emptied. The scope was removed. The patient was cleaned, aroused from anesthesia, and transferred to the pacu in stable condition having tolerated the procedure well with no complications. I was present and participated in all aspects of the procedure. The patient will be monitored in the PACU until transferred. Plan to maintain stent for 1-3 weeks and remove in office. I attest to the content of the Intraoperative Record and any orders documented therein. Any exceptions are noted below.
--- NOTE | 2021-09-25 12:46 | Anesthesiology Progress Note ---
Date of Service September 25, 2021 Anesthesia Post Procedure Vital Signs Vital Signs: Temp Pulse Pulse Resp BP BP Pulse Ox 09/25/21 12:40 59 L 15 104/59 L 93 09/25/21 12:31 97.2 F L 62 17 109/54 L 94 09/25/21 08:09 94 09/25/21 07:52 98.2 F 67 19 144/78 H 96 09/25/21 03:12 98.6 F 70 16 117/69 96 09/25/21 01:20 98.1 F 71 18 152/84 H 97 09/25/21 00:54 78 09/25/21 00:00 68 16 99 09/24/21 23:30 60 19 98 09/24/21 23:22 67 12 86 L 09/24/21 23:21 68 14 78 L 09/24/21 23:12 63 26 H 88 L 09/24/21 23:00 73 14 97 09/24/21 22:30 66 24 90 09/24/21 22:00 57 L 69 12 140/90 96 09/24/21 21:30 61 14 95 09/24/21 21:00 60 14 95 09/24/21 20:30 60 14 94 09/24/21 20:22 59 L 18 144/92 H 94 09/24/21 20:05 67 23 144/92 H 95 09/24/21 20:00 65 23 94 09/24/21 19:30 72 16 95 09/24/21 19:15 57 L 15 96 09/24/21 19:04 95 09/24/21 18:58 62 18 176/81 H 93 09/24/21 18:26 98.2 F 75 20 143/100 H 95 Pain Intensity Right Flank: Pain Intensity: 1 Transfer of Care Handoff Completed per policy Notes Mental Status: alert / awake / arousable and participated in evaluation Patient Amnestic to Procedure: Yes Nausea / Vomiting: adequately controlled Pain: adequately controlled Airway Patency, RR, SpO2: stable & adequate BP & HR: stable & adequate Hydration State: stable & adequate Anesthetic Complications: no major complications apparent and Pt Satisfied with anesthetic care
[2021-09-25] MEDS ORDERED: DIATRIZOATE MEGLUMINE 30% 100ML VIAL INSTIL ONE (12:53)
--- NOTE | 2021-09-25 14:22 | Fluoroscopy Report ---
FL retrograde includes kub CLINICAL HISTORY: RETROGRADE WITH STENT PLACEMENT COMPARISON STUDY: None FLUOROSCOPY TIME: 17 seconds. FLUOROSCOPIC IMAGES: 3 FINDINGS: A stent is seen within the right renal collecting system. Subsequently, a double-J ureteral stent was placed on the right. IMPRESSION: Placement of double-J ureteral stent on the right. ACT 112: Negative or not required by law. Electronically signed by: Ricardo Obando M.D. 09/25/2021 2:21 PM
[2021-09-25] MEDS ORDERED: Nursing to Pharmacy Communication SCH (18:45)
[2021-09-25] MEDS ORDERED: SIMVASTATIN 20 MG TAB PO SCH (21:00)
[2021-09-26] MEDS: LACTATED RINGER'S 1,000 ML IV SCH (03:07)
[2021-09-26 07:45] LABS: Basophils # (auto) 0.01 K/uL (0-0.2); Basophils % (auto) 0.2 %; Eosinophils # (auto) 0.06 K/uL (0-0.5); Hematocrit (blood only) 38.3 % (37-47); Hemoglobin 12.4 g/dL (12.0-16.0); Immature Granulocytes # (auto) 0.01 K/uL (0.00-0.02); Immature Granulocytes % (auto) 0.2 %; Lymphocytes # (auto) 0.92 K/uL (1.2-3.4); Lymphocytes % (auto) 15.3 %; Mean Corpuscular Hemoglobin 29.7 pg (25-34); Mean Corpuscular Hgb Conc 32.4 g/dL (32-36); Mean Corpuscular Volume 91.8 fL (80-100); Mean Platelet Volume 10.2 fL (7.4-10.4); Monocytes # (auto) 0.53 K/uL (0.11-0.59); Monocytes % (auto) 8.8 %; Neutrophils % (auto) 74.5 %; Platelet Count 183 K/uL (130-400); RDW Coefficient of Variation 14.4 % (11.5-14.5); RDW Standard Deviation 48.4 fL (36.4-46.3); Red Blood Count 4.17 M/uL (4.2-5.4); White Blood Count 6.03 K/uL (4.8-10.8)
[2021-09-26] MEDS: cefTRIAXone SODIUM 2,000 MG in DEXTROSE 5% 50 ML IV SCH (07:46)
[2021-09-26] MEDS: ACETAMINOPHEN 500 MG TAB PO SCH (07:53)
[2021-09-26] MEDS: TAMSULOSIN HCL 0.4 MG CAP PO SCH (07:54)
[2021-09-26] MEDS: CHOLECALCIFEROL 1,000 UNITS 25 MCG TAB PO SCH (07:54)
[2021-09-26] MEDS: CALCIUM CITRATE 950 MG TAB PO SCH (07:54)
[2021-09-26] MEDS: dilTIAZem HCL 180 MG CAPCR PO SCH (07:54)
--- NOTE | 2021-09-26 08:49 | Discharge Summary ---
Date of Service September 26, 2021 Admission HPI Per Admitting Provider 71-year-old female with a past medical history of prediabetes, osteopenia, plantar fasciitis, aortic insufficiency, hypertension, hyperlipidemia, and paroxysmal supraventricular tachycardia presents for evaluation of right flank pain diagnosed with 4 mm obstructing kidney stone. She presented to the emergency department noting a 2-hour history of sudden sharp right flank pain with associated nausea and vomiting she rated the pain as a 10 on a 10 noting a family history of kidney stones. On admission she denied any loss of consciousness headache, fevers, chills, diaphoresis, visual changes, neck pain, chest pain, breathing difficulty. Routine labs were obtained in the emergency department CBC was within normal limits, chemistries and CMP were acceptable, UA demonstrated 3+ blood, elevated urine WBCs. CT abdomen pelvis demonstrated obstructive 4 mm stone in the right UVJ with associated mild hydronephrosis and hydroureter. Patient was administered pain medication and subsequently experienced hypoxia. The hospital service was consulted for admission. Patient was sitting upright in bed in no acute distress. She noted that she does have a prescription of Percocet 53 25 for which she uses as needed for shoulder pain. She is being managed by orthopedics for the shoulder pain. She states she has taken the Percocet without similar drowsiness as she experienced with the hydromorphone this evening. She denies taking the medication daily and says she takes it very infrequently. When I was in the room she denied any fevers or chills, nausea or vomiting, chest pressure chest pain. She notes her pain overall is well controlled. Admission Exam Per Admitting Provider General: No acute distress HEENT: Normocephalic atraumatic Neck: No significant lymphadenopathy, trachea midline, normal to visual inspection Cardiac: Regular rate and rhythm, normal S1, normal S2, I did not appreciated any significant murmurs rubs or gallops, I did not appreciate any significant pedal edema, No calf tenderness, capillary refill is less than 3 seconds Respiratory: Clear to auscultation bilaterally with symmetrical chest rise, I did not appreciate any significant wheezes, rales, rhonchi, no increased work of breathing GI: Normal bowel sounds, soft, nontender in all 4 quadrants, nondistended, negative CVA tenderness MSK: No sensory or motor changes, moves all extremities without issue, extremities are warm and well-perfused Skin: [place], clean, dry, intact. Neuro: Alert and oriented x4 Psych: Calm, cooperative, logical thought process Principal Diagnosis renal lithiasis with obstruction Discharge Exam Constitutional: in no apparent distress, sitting comfortably in bed. Eyes: EOMI, pupils equal and reactive bilaterally, no scleral icterus Cardiac: RRR, no murmurs, gallops or rubs. Normal S1, S2 Pulm: CTA BL, no wheezes, rhonchi, crackles or rubs, moving air well throughout both lungs Abd: soft, nontender, nondistended, normal bowel sounds, no rebound or guarding Extremities: 2+ peripheral pulses, no edema Neuro: A&Ox3 Discharge Data Allergies Allergy/AdvReac Type Severity Reaction Status Date / Time No Known Allergies Allergy Verified 09/24/21 18:55 Consultations 09/24/21 23:58 ED Decision to Admit Stat 09/25/21 00:14 Consult Urology Routine Procedures Performed Operation Date: 09/25/21 10:25 Actual Procedures p Cystoscopy(Not Applicable) - Waldemar Gallo DO s Right Ureteroscopy, Ureteral dilation, Basket Stone Extraction, Right Retropyelogram Stent Insertion(Right) - Waldemar Gallo DO Ordered Studies 09/24/21 18:39 CT abd pelvis wo con Stat 09/25/21 FL retrograde includes kub Routine Hospital Course (1) Urinary tract obstruction by kidney stone: 71-year-old female with a past medical history of prediabetes, osteopenia, plantar fasciitis, aortic insufficiency, hypertension, hyperlipidemia, and paroxysmal supraventricular tachycardia presents for evaluation of right flank pain diagnosed with 4 mm obstructing kidney stone. Urinary tract obstruction secondary to kidney stone CT A/P showing 4 mm UVJ stone with mild hydroureter and hydronephrosis on the right side Taken for cystoscopy with stent placement by urology on 09/25, responded well to treatment. Treated with ceftriaxone while hospitalized. Discharged with script for flomax and cefdinir 300 mg BID x 10 days for treatment of complicated UTI. Initial urine culture negative, urine culture taken during cystoscopy pending. Urology office to call patient for follow up appointment, advised to contact PCP for follow up in ~1 week. Can take pyridium if continuing to have spastic right sided pain from stent. Other chronic conditions maintained by home regimens. (2) Nausea & vomiting: (3) Acute right flank pain: (4) Hypertension: (5) Hyperlipidemia LDL goal <70: (6) Paroxysmal supraventricular tachycardia: (7) Prediabetes: (8) Osteopenia: Total Time Total Time Spent Total Time Spent (In Minutes): 30 minutes Discharge Plan Discharge Items Patient Disposition: Home - Self-Care Reason For Visit: KIDNEY STONE Discharge Diagnosis: nephrolithiasis Activity: Resume your previous activity Non-emergency contact: Primary Care Provider and [facility] Call non-emergency contact if: your symptoms worsen and your pain is worsening Follow-up/Referrals: Heike Kessler CRNP [Primary Care Provider] - 10/04/21 10:30 am Waldemar Gallo DO [Physician] - (Dr. Gallo office should contact you within the next few days. If you do not receive a call at that time, please call their office to schedule an appointment. ) Diet: Regular Addtl Attending Provider Instructions: We discussed that the pain that brought you to the hospital was due to the 4mm kidney stone that was causing fluid backup and mild swelling of your right kidney. The urologist was able to retrieve the stone during the cystoscopy procedure, and noted blood built up behind the stone in the ureter, and was able to put a stent in to allow urine to flow around the area. This stent will be removed in the urology office in 1-3 weeks. If you have worsened pain, worsened blood in the urine, or persistent nausea and vomiting, let your Urologist know. You were sent home with an antibiotic prescription (Cefdinir 1 300 mg tab twice a day for 10 days) to treat any infection that was associated with the kidney stone. Your initial urine culture did not grow any bacteria, and we are waiting for the results of the urine culture taken during your cystoscopy. If the culture grows a bacteria that is not treated by your antibiotic, someone will call you with an update and send a new script. You were also sent a prescription medication to help with increasing your urine output (Tamsulosin 1 0.4 mg tab daily). Continue taking this until your urologist or PCP discontinues the medication or you are symptom free. Make sure you continue to hydrate appropriately to prevent future kidney stones from forming. Follow up with your primary care provider in the next week to discuss your hospitalization and symptoms. Pending Studies at Discharge: No Stand-Alone Forms: My [facility], Smoking Cessation Medications and DC Order Prescriptions: New tamsulosin 0.4 mg Capsule 0.4 mg PO QAM 30 Days Qty: 30 RF: 0 cefdinir 300 mg capsule 300 mg PO BID 10 Days Qty: 20 RF: 0 Continued calcium citrate-vitamin D3 [Calcium Citrate + D] 315-200 mg-unit tablet 1 tab PO BID RF: 0 hydrocodone-acetaminophen 5-325 mg tablet 1 tab PO Q6H PRN (Reason: pain) Qty: 30 RF: 0 simvastatin 20 mg tablet 20 mg PO QPM RF: 0 diltiazem HCl 180 mg Capsule,Extended Release 24hr 180 mg PO QAM 30 Days Qty: 30 RF: 1 cholecalciferol (vitamin D3) 2,000 unit capsule 2,000 units PO QAM RF: 0 fexofenadine 180 mg Tablet 180 mg PO QAM PRN (Reason: Allergy Symptoms) RF: 0 glucosamine-chondroitin [Osteo Bi-Flex] 250-200 mg Tablet 1 tab PO BID RF: 0 Discharge Orders: Discharge Order (Routine); Ordered 09/26/21 Ordered By: Clementine Giraldo Admission Data Admit Date/Time: 09/25/21 00:15 Attending Provider: Robin Vela Admit Provider: Jose Gaviria I. Primary Care Provider: Heike Kessler Other Providers: Mare Gaviria ; Julián Chong ; Ramon Lutz ; Taco Diaz ; Roxie Pineda ; Waldemar Gallo ; Antonina Benitez ; Donna Steel ; Gabriella Bello ; Cisco Martinez ; Dann Huertas ; Indira Wu ; Yary Bello ; Duncan Wills Other Interventions: Discharge Summary Assessment (RN) Last Done: 09/26/21 11:28 Supervising Physician Co-Signing Physician Notes I also saw the patient independently and confirmed godoy portions of the history and physical examination. I agree with impression and plan as noted in the resident documentation. Upon my examination, the patient without complaints. She did note a slight irritation in her lower abdomen, characterized as a mild pulling sensation. Is urinating without difficulty. Did note some blood-tinged urinediscussed that this would not be surprising giving her recent instrumentation. She is had no fever or chills. Ambulating in the room without difficulty. She is anticipating discharge. Exam Pleasant alert. No distress appreciated. Heart regular. Regular rhythm. Lungs clear with nonlabored respirations Abdomen soft and nontender Data Hemoglobin 12.4, WBC 6.03 Urine collected from procedure is showing no growth thus far. Urine collected upon admission shows mixed sunil, probable skin contamination. Assessment and Plan Ureterolithiasis, With obstruction 4 mm right kidney stone now status post cystoscopy, right ureteroscopy, ureteral dilatation, basket stone extraction and stent insertion Adequate urine output; no urinary symptoms appreciated. Cefdinir upon discharge Follow-up with urology as scheduled Noted history of recent SVT No sign of recurrence
== END 2021-09-26 14:01 | disposition home or self-care (01) ==
LOC: 2N 18:22 → ED 18:22 → SUATTDRO 09-25 00:15 → 2N 09-25 00:36

== ENCOUNTER 2021-10-11 07:33 | Observation (INO) ==
--- NOTE | 2021-09-27 09:40 | PAT Medication Instructions ---
Medication Instructions Date of Service September 27, 2021 Home Medications Medication Instructions Recorded hydrocodone 5 mg-acetaminophen 325 1 tab PO Q6H PRN #30 tab 08/04/21 mg tablet diltiazem HCl 180 mg 180 mg PO QAM 30 Days #30 cap 09/08/21 capsule,extended release 24 hr cefdinir 300 mg capsule 300 mg PO BID 10 Days #20 cap 09/26/21 tamsulosin 0.4 mg capsule 0.4 mg PO QAM 30 Days #30 cap 09/26/21 calcium citrate 315 mg-vitamin D3 5 mcg (200 unit) tablet (Calcium Citrate + D) 1 tab PO BID cholecalciferol (vitamin D3) 50 mcg (2,000 unit) capsule 2,000 units PO QAM fexofenadine 180 mg tablet 180 mg PO QAM PRN glucosamine-chondroitin 250 mg-200 mg tablet (Osteo Bi-Flex) 1 tab PO BID hydrocodone 5 mg-acetaminophen 325 mg tablet 1 tab PO Q6H PRN simvastatin 20 mg tablet 20 mg PO QPM diltiazem HCl 180 mg capsule,extended release 24 hr 180 mg PO QAM cefdinir 300 mg capsule 300 mg PO BID tamsulosin 0.4 mg capsule 0.4 mg PO QAM Continue as directed cefdinir 300 mg capsule 300 mg PO BID STOP taking 2 weeks before surgery (or as soon as possible if surgery is within 2 weeks) glucosamine-chondroitin 250 mg-200 mg tablet (Osteo Bi-Flex) 1 tab PO BID DO NOT take the morning of surgery calcium citrate 315 mg-vitamin D3 5 mcg (200 unit) tablet (Calcium Citrate + D) 1 tab PO BID cholecalciferol (vitamin D3) 50 mcg (2,000 unit) capsule 2,000 units PO QAM fexofenadine 180 mg tablet 180 mg PO QAM PRN Take morning of surgery With a small sip of water, OTHERWISE NOTHING TO EAT OR DRINK AFTER MIDNIGHT: hydrocodone 5 mg-acetaminophen 325 mg tablet 1 tab PO Q6H PRN (okay to take up to 4 hours prior to surgery if needed) diltiazem HCl 180 mg capsule,extended release 24 hr 180 mg PO QAM tamsulosin 0.4 mg capsule 0.4 mg PO QAM Take evening before surgery calcium citrate 315 mg-vitamin D3 5 mcg (200 unit) tablet (Calcium Citrate + D) 1 tab PO BID hydrocodone 5 mg-acetaminophen 325 mg tablet 1 tab PO Q6H PRN (if needed) simvastatin 20 mg tablet 20 mg PO QPM Other Notes If you have any questions please call us at [phone] or [phone] or or [phone]
--- NOTE | 2021-09-29 11:29 | Anesthesiology Consultation ---
Date of Service September 29, 2021 Assessment & Plan (1) Encounter for pre-operative examination: - COVID screening: Per assessment on 09/29: Patient vaccinated. Travel screen negative, no known COVID-19 positive contacts or current COVID-19 related sympt oms. Surgeon arranging preop COVID testing. Awaiting results. - Cardiology office visit (09/16/21): "SVT: EKG obtained the time of her admission suggests a reentrant mechanism. He was terminated with adenosine. 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 We discussed options for treatment going forward. This would include continued use of diltiazem versus catheter based therapy. She actually has gone a long time without an episode. However, she states that her recent episode was quite "severe". She seems somewhat anxious about recurrence. I provided her with some literature on ablation. We discussed the risks and benefits. She is scheduled for a shoulder surgery in a few weeks. I suggested proceeding with that and Re addressing the need for ablation afterwards. She will continue on diltiazem now. If she continues to have elevated blood pressures perhaps an increased dose would be worthwhile. Also discussed vagal maneuvers.. Hypertension: She seems to have elevated blood pressures. She was recently switched from lisinopril to diltiazem. She may require an increased dose at some point. She will continue monitoring her blood pressure at home.. aortic insufficiency: Mild. Preserved LV systolic function and Normal chamber dimension.This can be monitored over time." - S/P Cysto, right ureteroscopy, stone basket extraction, stent (09/25/21): MAC at [facility] - Possible difficult intubation: due to anatomy - Post-op course: Per message from surgeon's office, patient will not be doing outpatient joint pathway* Chart Review Chart Review: Acceptable Risk for Surgery (pending evaluation AM DOS) and Patient seen in Pre Admission Testing Teaching & Discussion Pre-Anesthesia Teaching/Discussion Notes: Instructed NPO after midnight before surgery,except medications with 15 cc of water. Medication instructions provided according to the PAT guidelines. History Surgery Operation Date: 10/11/21 12:10 Proposed Procedures p Left Reverse Total Shoulder Arthroplasty - Lobo Augustin, Height/Weight Height: 5 ft Weight: 87.6 kg Allergies Allergy/AdvReac Type Severity Reaction Status Date / Time tramadol Allergy Facial Verified 09/29/21 12:01 redness, hives Medications Home Medications Medication Instructions Recorded Confirmed Last Taken calcium citrate 315 mg-vitamin D3 1 tab PO BID tab 03/19/19 09/24/21 09/24/21 5 mcg (200 unit) tablet (Calcium Citrate + D) cholecalciferol (vitamin D3) 50 2,000 units PO QAM 06/07/21 09/24/21 09/24/21 mcg (2,000 unit) capsule fexofenadine 180 mg tablet 180 mg PO QAM PRN 06/07/21 09/24/21 08/18/21 glucosamine-chondroitin 250 mg-200 1 tab PO BID 06/07/21 09/24/21 09/24/21 mg tablet (Osteo Bi-Flex) hydrocodone 5 mg-acetaminophen 325 1 tab PO Q6H PRN #30 tab 08/04/21 09/24/21 Unknown mg tablet simvastatin 20 mg tablet 20 mg PO QPM 08/20/21 09/24/21 09/24/21 diltiazem HCl 180 mg 180 mg PO QAM 30 Days #30 cap 09/08/21 09/24/21 09/24/21 capsule,extended release 24 hr cefdinir 300 mg capsule 300 mg PO BID 10 Days #20 cap 09/26/21 Unknown tamsulosin 0.4 mg capsule 0.4 mg PO QAM 30 Days #30 cap 09/26/21 Unknown Past Medical History Medical History History of COVID-19 Dx 06/2021 > symptoms at time: headache, loss of appetite, loss of taste/smell, low-grade fever > resolved except residual loss of smell History of left breast cancer diagnosed 1995--sx/radiation History of skin cancer Pt unsure type, removed in office Hyperlipidemia LDL goal <70 Hypertension Osteoarthritis Osteopenia HX Paroxysmal supraventricular tachycardia Follows with [facility] cardiology (Dr. Kenny) Pre-diabetes Diet controlled Sensorineural hearing loss Spinal stenosis Exercise / Class Metabolic Activity III < 4 Walking/Shop/Light housework (one FS (no CP, occasional + SOB)) Past Family History Family History Mother Myocardial infarction Family history of diabetes mellitus Sister Family history of diabetes mellitus Sister Family history of diabetes mellitus Other Family history non-contributory No family history of adverse response to anesthesia Denies family history of Ovarian cancer Prostate cancer Breast cancer Colorectal cancer Past Surgical History Surgical History History of arthroscopy of left knee meniscus repair History of colonoscopy History of cystoscopy Cysto, right ureteroscopy, stone basket extraction, stent (09/25/21): MAC at [facility] History of left breast biopsy malignant History of lumbar spinal fusion History of right knee surgery History of tooth extraction Hx of bilateral cataract extraction Past Anesthesia History No Hx of Anesthesia Complications and No Family Hx of Anesthesia Complications History of PONV No Hx of PONV and No Hx of Motion Sickness Social History Smoking Status: Never smoker Do You Dip or Chew Tobacco: No Hx Alcohol Use: No Alcohol type: wine Hx Substance Use: No substance use type: prescription drug Review of Systems Patient denies chest pain, shortness of breath, fever, chills, cough, wheezing, palpitations. Physical Exam Vital Signs VITALS BP 127/75 P 70 TEMP 98.0 SP02 98%RA RESP 18 PHYSICAL Full cervical extension range of motion. Full TMJ range of motion. TMD 2 finger breaths (small chin) Mallampati Score 3 Dentition: missing sides, + crowns Lungs: clear throughout to auscultation Cardiac: regular rate and rhythm, no murmurs noted Spine: normal Carotid arteries: negative bruit Extremities: no edema Lab Results Anesthesia Preop Results Results Anesthesia Widget: WBC 6.03 K/uL (4.8-10.8) 09/26/21 Hgb 12.4 g/dL (12.0-16.0) 09/26/21 Hct 38.3 % (37-47) 09/26/21 Plt 183 K/uL (130-400) 09/26/21 Na 139 mmol/L (136-145) 09/24/21 K 3.7 mmol/L (3.5-5.1) 09/24/21 Cl 104 mmol/L (98-107) 09/24/21 CO2 29 mmol/L (21-32) 09/24/21 BUN 15 mg/dl (6-23) 09/24/21 Creat 0.99 mg/dl (0.6-1.2) 09/24/21 Glucose Level 121 mg/dl (70-99(Fasting)) H 09/24/21 PT 11.2 Seconds (9.0-12.0) 09/29/21 PTT 25.3 Seconds (21.0-31.0) 09/29/21 INR 1.1 (0.9-1.1) 09/29/21 TSH 1.987 uIu/ml (0.300-4.500) 09/07/21 Urine Color Yellow 09/24/21 Urine Appearance Cloudy (Clear) A 09/24/21 Urine pH 5.0 (4.5-7.5) 09/24/21 Urine Specific [place] 1.028 (1.000-1.030) 09/24/21 Urine Protein Trace (Negative) H 09/24/21 Urine Glucose (UA) Negative (Negative) 09/24/21 Urine Ketones Negative (Negative) 09/24/21 Urine Blood 3+ (Negative) H 09/24/21 Urine Nitrite Negative (Negative) 09/24/21 Urine Bilirubin Negative (Negative) 09/24/21 Urine Urobilinogen Negative (Negative) 09/24/21 Urine Leukocyte Esterase Trace (Negative) H 09/24/21 Urine WBC (Auto) >30 /hpf (0-5) H 09/24/21 Urine RBC (Auto) >30 /hpf (0-4) H 09/24/21 Urine Hyaline Casts (Auto) 10-30 /lpf (0-5) H 09/24/21 Urine Epithelial Cells (Auto) >30 /lpf (0-5) H 09/24/21 Urine Bacteria (Auto) Negative (Negative) 09/24/21 Blood Type O Positive 09/29/21 Antibody Screen NEGATIVE 09/29/21 Lab Comments: Urine culture (09/25/21) - no growth Testing Electrocardiogram Date: 09/07/21 Normal sinus rhythm at 84 bpm. LAE. LVH. Chest X-Ray Date: 09/29/21 FINDINGS: Lung volumes are normal. Lungs are clear. There is no pneumothorax or pleural effusion. Cardiac size is normal. Mediastinal contours are normal. There is no evidence for pulmonary edema. Right ureteral stent is incidentally noted. A density projecting lateral to left heart border is new since prior exam. This may be artifactual. IMPRESSION: No acute cardiopulmonary findings. Echocardiogram Date: 09/08/21 EF 55-60%. No regional motion abnormality. Mild AR. Mild TR. RVSP elevated at 30-40 mmHg. Compared with 11/02/2018 study, mild valvular disease now seen (AI/TR) and mild pulmonary hypertension noted. Stress Test Date: 11/02/18 Type: exercise Normal stress echocardiogram at 4.5 METS. Greater than 100% MPHR. Limited exercise tolerance. No exercise-induced chest pain. No EKG changes.
--- NOTE | 2021-10-07 16:36 | History & Physical Report ---
Date of Service October 07, 2021 Assessment & Plan (1) Rotator cuff arthropathy of left shoulder: We will proceed with a left reverse shoulder arthroplasty. Postoperatively she will be placed in a sling and kept overnight in the hospital for postoperative medical management. She plans to go to [facility] outpatient physical therapy upon discharge. History of Present Illness Chief Complaint: Cuff arthropathy of the left shoulder. Primary Care Provider: LUIS Alvarenga Aileen is a pleasant 71-year-old female who has known cuff arthropathy left shoulder. We have an MRI that confirms the repairable rotator cuff tear. After failing extensive conservative treatment, including multiple injections, she has elected proceed with a left reverse shoulder arthroplasty. Allergies Allergy/AdvReac Type Severity Reaction Status Date / Time tramadol Allergy Facial Verified 10/04/21 10:26 redness, hives Home Medications Medication Instructions Recorded Confirmed Type calcium citrate 315 mg-vitamin D3 1 tab PO BID tab 03/19/19 10/04/21 History 5 mcg (200 unit) tablet (Calcium Citrate + D) cholecalciferol (vitamin D3) 50 2,000 units PO QAM 06/07/21 10/04/21 History mcg (2,000 unit) capsule fexofenadine 180 mg tablet 180 mg PO QAM PRN 06/07/21 10/04/21 History glucosamine-chondroitin 250 mg-200 1 tab PO BID 06/07/21 10/04/21 History mg tablet (Osteo Bi-Flex) hydrocodone 5 mg-acetaminophen 325 1 tab PO Q6H PRN #30 tab 08/04/21 10/04/21 Rx mg tablet simvastatin 20 mg tablet 20 mg PO QPM 08/20/21 10/04/21 History diltiazem HCl 180 mg 180 mg PO QAM 30 Days #30 cap 09/08/21 10/04/21 Rx capsule,extended release 24 hr tamsulosin 0.4 mg capsule 0.4 mg PO QAM 30 Days #30 cap 09/26/21 10/04/21 Rx acetaminophen 500 mg tablet 500 mg PO Q6H PRN 10/04/21 10/04/21 History (Tylenol Extra Strength) oxycodone-acetaminophen 5 mg-325 1 tab PO Q6H PRN #30 tab 10/06/21 Rx mg tablet (Percocet) Past Med/Surg History Medical History Acute right flank pain History of COVID-19 Dx 06/2021 > symptoms at time: headache, loss of appetite, loss of taste/smell, low-grade fever > resolved except residual loss of smell History of left breast cancer diagnosed 1995--sx/radiation History of skin cancer Pt unsure type, removed in office Hyperlipidemia LDL goal <70 Hypertension Nausea & vomiting Osteoarthritis Osteopenia HX Paroxysmal supraventricular tachycardia Follows with [facility] cardiology (Dr. Kenny) Pre-diabetes Diet controlled Sensorineural hearing loss Spinal stenosis Surgical History History of arthroscopy of left knee meniscus repair History of colonoscopy History of cystoscopy Cysto, right ureteroscopy, stone basket extraction, stent (09/25/21): MAC at [facility] History of left breast biopsy malignant History of lumbar spinal fusion History of right knee surgery History of tooth extraction Hx of bilateral cataract extraction Family History Mother Myocardial infarction Family history of diabetes mellitus Sister Family history of diabetes mellitus Sister Family history of diabetes mellitus Other Family history non-contributory No family history of adverse response to anesthesia Denies family history of Ovarian cancer Prostate cancer Breast cancer Colorectal cancer Social History Smoking Status: Never smoker Second Hand Exposure: No; Hx Alcohol Use: No Hx Substance Use: No Preferred Language: Pakistani Communication Ability: Effective Visual Impairment: No Limitations Coke Drawer Hand Required: No Beliefs That Will Affect Care: None marital status: Single Current Living Situation: Family Current Living Situation Comment: SON current occupational status: employed and 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 Physical Exam On physical examination of the left shoulder, she has a pseudoparalysis. She can only lift her arm about 40 degrees. She is significant pain. Constitutional WD/WN, vitals as above Eyes PERRL, conjunctivae normal, anicteric sclerae ENMT external ear and nose normal, oropharynx normal Neck trachea midline, no thyromegaly Respiratory normal respiratory effort Cardiovascular RRR, no murmur, no edema Gastrointestinal (Abdomen) normal bowel sounds, soft, nontender, no hepatosplenomegaly Psychiatric A+Ox3, euthymic affect Results & Data Results & Data Laboratory Results . Diagnostic Findings X-rays of the left shoulder show some mild to moderate osteoarthritis with a little bit of superior migration of the humeral head on the glenoid. MRI of the left shoulder shows a massive retracted tear repairable rotator cuff tear. PG Care Time/CCT Total # of Minutes Spent Total Time Spent with Patient: Total time spent is greater than 50% in coordination of care (as documented) at patient's floor/unit and/or counseling patient: Coding Level of Care Code None Diagnoses Rotator cuff arthropathy of left shoulder M12.812
[~2021-10-11 07:33] MED LIST changes: +ACETAMINOPHEN 500 MG TAB PO SCH; +BUPIVACAINE 0.5 % 5 MG/1 ML PF 10ML VIAL ONE; -CALC1TAB9 PO; -CHOL400T PO; +FAMOTIDINE 20 MG TAB PO SCH; +GABAPENTIN 300 MG CAP PO SCH; +Ketorolac (*for OR use only*) 30 MG, dexAMETHasone 4 MG, KETAMINE HCL (**OR use only) 1... INFIL SCH; -LISI-729 PO; +LR 15ML/HR IV SCH; +LR 60ML/HR IV SCH; +PHENYLEPHRINE HCL 10 MG/ML VIAL ONE; -SIMV20TA2 PO; +TRANEXAMIC ACID 1,000 MG **IV Intra-op IV SCH; +TRANEXAMIC ACID 1,000 MG **IV Pre-op IV SCH; +ceFAZolin 2000MG 2,000 MG/15 ML SYR IV SCH; +dexAMETHasone 4 MG TAB PO SCH
[2021-10-11] MEDS ORDERED: LARYING-O-JET KIT (LTA) ONE (08:27)
[2021-10-11] MEDS ORDERED: ROCURONIUM BROMIDE 10 MG/ML 5 ML VIAL IV ONE (08:27)
[2021-10-11] MEDS ORDERED: NEOSTIGMINE METHYLSULFATE 1 MG/ML 10ML VIAL ONE (08:27)
[2021-10-11] MEDS ORDERED: ONDANSETRON INJ 2 MG/ML 2 ML VIAL ONE (08:27)
[2021-10-11] MEDS ORDERED: GLYCOPYRROLATE 0.2 MG/ML VIAL ONE (08:27)
[2021-10-11] MEDS ORDERED: PROPOFOL IV EMULSION 10 MG/ML 20 ML VIAL IV ONE (08:27)
[2021-10-11] MEDS ORDERED: ePHEDrine sulfate 50 MG/ML AMP ONE (08:27)
[2021-10-11] MEDS ORDERED: LIDOCAINE 2% 2 ML VIAL/AMP(20MG/ML) INFIL ONE (08:27)
[2021-10-11] MEDS ORDERED: DEXAMETHASONE SOD INJ 4 MG/ML VIAL ONE (08:27)
[2021-10-11] MEDS ORDERED: MIDAZOLAM HCL 1 MG/ML 2ML VIAL ONE (08:28)
[2021-10-11] MEDS ORDERED: fentaNYL citrate 100 MCG/2 ML VIAL ONE (08:28)
--- NOTE | 2021-10-11 09:15 | History & Physical Bridge Note ---
Date of Service October 11, 2021 History & Physical Bridge Note I have examined the patient, reviewed the History & Physical and in the interval since the performance of the History & Physical I have noted the following changes of clinical significance: no changes noted
[2021-10-11] MEDS ORDERED: ORTHO JOINT ANESTHETIC ONE (09:33)
[2021-10-11] MEDS ORDERED: ePHEDrine sulfate 50 MG/ML AMP IV PRN (10:06)
[2021-10-11] MEDS ORDERED: fentaNYL citrate 100 MCG/2 ML VIAL IV PRN (10:06)
[2021-10-11] MEDS ORDERED: ATROPINE SULFATE 0.1 MG/ML 10ML SYR IV PRN (10:06)
[2021-10-11] MEDS ORDERED: ONDANSETRON INJ 2 MG/ML 2 ML VIAL IV PRN (10:06)
[2021-10-11] MEDS ORDERED: HYDROmorphone INJ 2 MG/ML SYR/VIAL IV PRN (10:06)
--- NOTE | 2021-10-11 11:34 | Operative Report ---
PG Post Operative Report Pre & Post Diagnosis Operation Date: 10/11/21 10:10 Pre-Op Diagnosis: Rotator cuff arthropathy of left shoulder with tendinopathy of the long head of the biceps tendon Post-Op Diagnosis: Rotator cuff arthropathy of left shoulder with tendinopathy of the long head of the biceps tendon I identified the patient and participated in the time-out.: Yes Procedure Operation Date: 10/11/21 10:10 Actual Procedures p Left Reverse Total Shoulder Arthroplasty(Left) with open biceps tenodesis as a distinct and separate procedure (modifier 59)- Lobo Augustin DO Surgeon Lobo Augustin DO Environmental Safety Specialist Lobo Jo PAC Estimated Blood Loss 150 Findings Consistent with Post-Op Diagnosis Specimens Left humeral head Complications none Disposition Disposition: Recovery Room Indications Aileen is a pleasant 71-year-old female who is been dealing with chronic increasing left shoulder pain. MRI and clinical examination were diagnostic for cuff arthropathy of the left shoulder. After failing conservative treatment, she elected proceed with a left reverse shoulder arthroplasty. Description of Procedure A CPT code modifier 59: The long head of the biceps tendon was enlarged and inflamed consistent with tendinopathy. A tenodesis was opted. This was a separate and distinct portion of the procedure. For these reasons, a CPT code modifier 59 will be added to this case. Implants used: I used a Biomet Comprehensive reverse total shoulder arthroplasty system with a size 10 press fit micro humeral stem, a +6 offset humeral tray and a standard hu meral bearing, a 25 mm small augment baseplate with a 6.5 mm central screw and superior and inferior locking screws, and a size 36 mm eccentric glenosphere. Aileen arrived at [facility] for the above procedure. She was seen in the preoperative holding area and the operative extremity was identified and signed. She was given a preoperative antibiotic, TXA, and an interscalene nerve block. She was taken back to the operating room, laid on table in supine position, and put under general anesthesia. She was then put into the beachchair position. The shoulder was then prepped and draped in sterile fashion. A timeout was done and the patient and the operative extremity was properly identified. A deltopectoral approach was used. Dissection was taken down through the fascia and the deltoid was retracted laterally and the conjoined tendon was retracted medially. The anterior shoulder was exposed. The biceps groove was opened up and the biceps tendon was examined extensively. The biceps tendon demonstrated enlargement and inflammatory changes consistent with longstanding inflammation in the context of osteoarthritis and cuff arthropathy. The long head of the biceps tendon was then tenodesed to the upper border of the pectoralis major. This was a separate and distinct portion of the procedure. The subscapularis was then directly released off the lesser tuberosity with a peel technique. The inferior capsule was released and the humeral head was dislocated. A canal finding reamer was sent down the center of the humeral canal. Sequential reaming up to a size 10 reamer was done. Off that reamer, a proximal humeral resection guide was placed. The proximal humerus was resected at 135 of inclination and 25 of retroversion. Osteophytes were then removed and the glenoid was exposed. Time was spent doing a complete capsular and labral release. The glenoid guide was then placed in the inferior aspect of the glenoid. A 3.2 mm Steinmann pin was then placed into the glenoid vault at 10 of inclination. The glenoid baseplate was then reamed. The final size 25 mm small augment baseplate was then impacted in the place. A 6.5 mm central screw was then placed followed by superior and inferior locking screws. A 36 mm eccentric glenosphere was then impacted into place. Surrounding soft tissues were then injected with 100 cc an orthopedic pain control cocktail. The proximal humerus was then exposed. Sequential broaching of the humerus up to a size 10 broach was done. Off that broach a +6 offset humeral tray was trialed. The shoulder was then reduced, brought through a full range of motion, and felt to be stable. The shoulder was then dislocated and the broach was removed. The final size 10 micro press-fit humeral stem was then impacted into place. A standard humeral bearing was then snapped onto a +6 offset humeral tray. The humeral tray was then impacted onto the humeral stem. The shoulder was once again reduced, brought through a full range of motion, and felt to be stable. The subscapularis was then tenodesed back to the lesser tuberosity with transosseous FiberWire sutures and side to side sutures with the arm in 45 of external rotation. A dilute betadyne lavage was then done for 3 minutes. The joint was then irrigated with normal saline solution. Hemostasis was obtained. The interval was closed with 2-0 Vicryl suture. The skin was then closed with 2-0 Vicryl and duy. A Silverlon dressing was placed and the arm was rested in a regular arm sling. She was then extubated and transferred to a hospital bed. She taken to the postanesthesia care unit in stable condition. She tolerated the procedure well. Lobo Jo PA-C, was present for the entire procedure. He was critical for patient positioning, prepping, draping, retraction exposure, wound closure and application of sterile dressing. I attest to the content of the Intraoperative Record and any orders documented therein. Any exceptions are noted below.
[2021-10-11] MEDS ORDERED: bisacodyL 10 MG SUPP PR PRN (12:53)
[2021-10-11] MEDS ORDERED: oxyCODONE HCL IR 5 MG TAB (IMMEDIATE RELEASE) PO PRN (12:53)
[2021-10-11] MEDS ORDERED: METOCLOPRAMIDE HCL INJ 5 MG/ML 2 ML VIAL IV PRN (12:53)
[2021-10-11] MEDS ORDERED: FEXOFENADINE HCL 180 MG TAB PO PRN (12:53)
[2021-10-11] MEDS ORDERED: MAGNESIUM HYDROXIDE SUSP 30 ML UDC PO PRN (12:53)
[2021-10-11] MEDS ORDERED: NALOXONE HCL 0.4 MG/1 ML VIAL/CARP IV PRN (12:53)
[2021-10-11] MEDS ORDERED: HYDROmorphone INJ 0.5 MG/0.5 ML SYR IV PRN (12:53)
--- NOTE | 2021-10-11 13:04 | XRay Report ---
XR shoulder LT min 2V routine HISTORY: 71 years-old Female Post shoulder surgery left shoulder total joint arthroplasty COMPARISON: Chest radiograph 09/29/2021 TECHNIQUE: 2 views of the left shoulder FINDINGS: Reverse total joint arthroplasty. Overlying skin duy are noted along with expected postoperative soft tissue swelling with deep tissue air. No acute fracture, malalignment or unexpected opaque forei gn body. Probable left basilar atelectasis. IMPRESSION: Left shoulder reverse total joint arthroplasty with expected postoperative changes. ACT 112: Negative or not required by law. The above report was generated using voice recognition software. It may contain grammatical, syntax o r spelling errors. Electronically signed by: Zander Samson M.D. 10/11/2021 1:02 PM
[2021-10-11] MEDS: SODIUM CHLORIDE 0.9% 1000ML 1,000 ML IV SCH (13:06)
[2021-10-11] MEDS: ONDANSETRON INJ 2 MG/ML 2 ML VIAL IV PRN ×2 (13:18→19:25)
[2021-10-11] MEDS: ACETAMINOPHEN 500 MG TAB PO SCH ×2 (14:06→22:01)
[2021-10-11] MEDS: KETOROLAC TROMETHAMINE 15 MG/ML VIAL IV SCH ×3 (14:06→19:25)
--- NOTE | 2021-10-11 14:16 | Anesthesiology Progress Note ---
Date of Service October 11, 2021 Anesthesia Post Procedure Vital Signs Vital Signs: Temp Pulse Pulse Resp BP Pulse Ox 10/11/21 13:46 36.3 C L 63 12 97/61 L 94 10/11/21 13:15 36.6 C 56 L 18 113/73 96 10/11/21 12:53 36.4 C L 62 18 113/68 94 10/11/21 12:30 37.4 C 65 18 104/50 L 97 10/11/21 12:20 63 19 104/60 96 10/11/21 12:10 73 23 107/62 95 10/11/21 12:00 72 16 104/54 L 97 10/11/21 11:52 36.1 C L 78 14 108/60 96 10/11/21 08:13 36.8 C 64 18 151/78 H 97 Pain Intensity Left Shoulder: Pain Intensity: 2 Transfer of Care Handoff Completed per policy Notes Mental Status: alert / awake / arousable and participated in evaluation Patient Amnestic to Procedure: Yes Nausea / Vomiting: adequately controlled Pain: adequately controlled Airway Patency, RR, SpO2: stable & adequate BP & HR: stable & adequate Hydration State: stable & adequate Anesthetic Complications: no major complications apparent and Pt Satisfied with anesthetic care
--- NOTE | 2021-10-11 14:18 | Anesthesiology Consultation ---
Date of Service October 11, 2021 Assessment & Plan ASA ASA3 Proposed Anesthesia Anesthesia Type: General Regional Regional Laterality: Left Site: Interscalene Risk / Benefits Reviewed With: PT / POA / Parent / Guardian, Accepts Plan and Informed Consent Obtained Additional Comments: pt was seen and examined prior to surgery. History Surgery Operation Date: 10/11/21 10:10 Proposed Procedures p Left Reverse Total Shoulder Arthroplasty - Lobo Augustin, Height/Weight Height: 5 ft Weight: 86.5 kg Allergies Allergy/AdvReac Type Severity Reaction Status Date / Time tramadol Allergy Facial Verified 10/11/21 08:16 redness, hives Medications Home Medications Medication Instructions Recorded Confirmed Last Taken calcium citrate 315 mg-vitamin D3 1 tab PO BID tab 03/19/19 10/11/21 2 Weeks Ago 5 mcg (200 unit) tablet (Calcium ~09/27/21 Citrate + D) cholecalciferol (vitamin D3) 50 2,000 units PO QAM 06/07/21 10/11/21 2 Weeks Ago mcg (2,000 unit) capsule ~09/27/21 fexofenadine 180 mg tablet 180 mg PO QAM PRN 06/07/21 10/11/21 1 Month Ago ~09/10/21 glucosamine-chondroitin 250 mg-200 1 tab PO BID 06/07/21 10/11/21 2 Weeks Ago mg tablet (Osteo Bi-Flex) ~09/27/21 hydrocodone 5 mg-acetaminophen 325 1 tab PO Q6H PRN #30 tab 08/04/21 10/11/21 1 Week Ago mg tablet ~10/04/21 simvastatin 20 mg tablet 20 mg PO QPM 08/20/21 10/11/21 10/10/21 17:00 diltiazem HCl 180 mg 180 mg PO QAM 30 Days #30 cap 09/08/21 10/11/21 10/11/21 07:00 capsule,extended release 24 hr tamsulosin 0.4 mg capsule 0.4 mg PO QAM 30 Days #30 cap 09/26/21 10/11/21 10/10/21 07:00 acetaminophen 500 mg tablet 500 mg PO Q6H PRN 10/04/21 10/11/21 10/05/21 (Tylenol Extra Strength) oxycodone-acetaminophen 5 mg-325 1 tab PO Q6H PRN #30 tab 10/06/21 10/11/21 Unknown mg tablet (Percocet) oxycodone-acetaminophen 5 mg-325 1 tab PO Q6H PRN #20 tab 10/10/21 10/11/21 Unknown mg tablet (Percocet) Active Medications Generic Name Dose Route Start Last Admin Trade Name Freq PRN Reason Stop Dose Admin Acetaminophen 1,000 mg 10/11/21 14:00 10/11/21 14:06 Acetaminophen 500 Mg Tab PO 11/10/21 13:59 1,000 mg Q8 RANJEET Administration Sodium Chloride 1,000 mls @ 100 mls/hr 10/11/21 12:53 10/11/21 13:06 Nss 1000ml IV 10/12/21 06:00 100 mls/hr .Q10H RANEJET Administration Ketorolac Tromethamine 15 mg 10/11/21 14:00 10/11/21 14:07 Ketorolac Tromethamine 15 Mg/Ml Vial IV 10/13/21 08:01 Not Given Q6H RANJEET Ondansetron HCl 4 mg 10/11/21 12:53 10/11/21 13:18 Ondansetron Inj 2 Mg/Ml 2 Ml Vial IV 11/10/21 12:52 4 mg Q6H PRN Administration Nausea And Vomiting NPO Date Last Intake of Fluids: 10/10/21 Time Last Intake of Fluids: 20:00 Date Last Intake of Solids: 10/10/21 Time Last Intake of Solids: 18:00 Past Medical History Medical History Acute right flank pain History of COVID-19 Dx 06/2021 > symptoms at time: headache, loss of appetite, loss of taste/smell, low-grade fever > resolved except residual loss of smell History of left breast cancer diagnosed 1995--sx/radiation History of skin cancer Pt unsure type, removed in office Hyperlipidemia LDL goal <70 Hypertension Nausea & vomiting Osteoarthritis Osteopenia HX Paroxysmal supraventricular tachycardia Follows with [facility] [place] cardiology (Dr. Kenny) Pre-diabetes Diet controlled Sensorineural hearing loss Spinal stenosis Exercise / Class Metabolic Activity II 4-5 Yardwork/Stairs/Walk up hill Past Family History Family History Mother Myocardial infarction Family history of diabetes mellitus Sister Family history of diabetes mellitus Sister Family history of diabetes mellitus Other Family history non-contributory No family history of adverse response to anesthesia Denies family history of Ovarian cancer Prostate cancer Breast cancer Colorectal cancer Past Surgical History Surgical History History of arthroscopy of left knee meniscus repair History of colonoscopy History of cystoscopy Cysto, right ureteroscopy, stone basket extraction, stent (09/25/21): MAC at [facility] History of left breast biopsy malignant History of lumbar spinal fusion History of right knee surgery History of tooth extraction Hx of bilateral cataract extraction Past Anesthesia History No Hx of Anesthesia Complications and No Family Hx of Anesthesia Complications History of PONV No Hx of PONV and No Hx of Motion Sickness Social History Smoking Status: Never smoker Do You Dip or Chew Tobacco: No Hx Alcohol Use: No Alcohol type: wine alcohol intake frequency: holidays/special occasions only Hx Substance Use: No substance use type: prescription drug Review of Systems denies fever/cough/ colds/ chest pain/ SOB/ DG denies DG Physical Exam Vital Signs Last Vital Signs Temp 36.3 C L 10/11/21 13:46 Pulse 63 10/11/21 13:46 Resp 12 10/11/21 13:46 BP 97/61 L 10/11/21 13:46 Pulse Ox 94 10/11/21 13:46 ENMT Mouth: no TMJ abnormality and no dentition abnormality Thyromental Distance: > or= 3.5 Finger Breadths Mallampati Class: II Neck neck extension not limited Respiratory normal respiratory effort; no respiratory distress Auscultation: lungs clear to auscultation bilaterally Cardiovascular Rate/Rhythm: regular rate and regular rhythm Neurologic moves all extremities Psychiatric Orientation: alert and oriented x 3 Testing Laboratory Results 10/11/21 08:20 POC Glucose 101 H Electrocardiogram Date: 09/07/21 Normal sinus rhythm at 84 bpm. LAE. LVH. Chest X-Ray Date: 09/29/21 FINDINGS: Lung volumes are normal. Lungs are clear. There is no pneumothorax or pleural effusion. Cardiac size is normal. Mediastinal contours are normal. There is no evidence for pulmonary edema. Right ureteral stent is incidentally noted. A density projecting lateral to left heart border is new since prior exam. This may be artifactual. IMPRESSION: No acute cardiopulmonary findings. Echocardiogram Date: 09/08/21 EF 55-60%. No regional motion abnormality. Mild AR. Mild TR. RVSP elevated at 30-40 mmHg. Compared with 11/02/2018 study, mild valvular disease now seen (AI/TR) and mild pulmonary hypertension noted. Stress Test Date: 11/02/18 Type: exercise Normal stress echocardiogram at 4.5 METS. Greater than 100% MPHR. Limited exercise tolerance. No exercise-induced chest pain. No EKG changes.
[2021-10-11] MEDS: ceFAZolin 2000MG 2,000 MG/15 ML SYR IV SCH (17:14)
[2021-10-11] MEDS: DOCUSATE SODIUM 100 MG CAP PO SCH (19:28)
[2021-10-11] MEDS ORDERED: SENNA 8.6 MG TAB PO SCH (21:00)
[2021-10-11] MEDS ORDERED: SIMVASTATIN 20 MG TAB PO SCH (21:00)
[2021-10-12] MEDS: KETOROLAC TROMETHAMINE 15 MG/ML VIAL IV SCH ×2 (01:06→07:37)
[2021-10-12] MEDS: ceFAZolin 2000MG 2,000 MG/15 ML SYR IV SCH (01:06)
[2021-10-12] MEDS: SODIUM CHLORIDE 0.9% 1000ML 1,000 ML IV SCH (01:19)
[2021-10-12] MEDS: ACETAMINOPHEN 500 MG TAB PO SCH (05:57)
--- NOTE | 2021-10-12 06:58 | Orthopedic Progress Note ---
Date of Service October 12, 2021 Assessment & Plan (1) Status post reverse total replacement of left shoulder: Overall she is doing fairly well. She is not having much pain in the Left shoulder. She will be seen by physical therapy today for ambulation and range of motion exercises. She can be discharged home later today. She will follow- up with orthopedics in 2 weeks. Opal Gallagher was seen and examined at bedside this morning. Overall she is doing fairly well. She is not having much pain in the left shoulder. She was able to get some sleep last night. She has no complaints.. Review of Systems All systems reviewed & are unremarkable except as noted in HPI & below. Physical Exam On physical examination of the left shoulder, the dressing is clean and dry. She is wearing a sling as instructed. The nerve block is still in effect. . Results & Data Results & Data Laboratory Results . Diagnostic Findings Postoperative x-rays of the left shoulder show the prosthesis to be in anatomic alignment without any evidence of fracture, screws, or loosening . PG Care Time/CCT Total # of Minutes Spent Total Time Spent with Patient: Total time spent is greater than 50% in coordination of care (as documented) at patient's floor/unit and/or counseling patient: Coding Level of Care Code 83852 Post Operative Follow-Up Diagnoses Status post reverse total replacement of left shoulder Z96.612
--- NOTE | 2021-10-12 07:00 | Discharge Summary ---
Date of Service October 12, 2021 Admission HPI (Per Admitting) Aileen is a pleasant 71-year-old female who has known cuff arthropathy left shoulder. We have an MRI that confirms the repairable rotator cuff tear. After failing extensive conservative treatment, including multiple injections, she has elected proceed with a left reverse shoulder arthroplasty. Admission Exam (Per Admitting) On physical examination of the left shoulder, she has a pseudoparalysis. She can only lift her arm about 40 degrees. She is significant pain. Principal Diagnosis Same as "Discharge Diagnosis" noted below under Discharge Instructions. Discharge Exam On physical examination of the left shoulder, the dressing is clean and dry. She is wearing a sling as instructed. The nerve block is still in effect. . Discharge Data Procedures Performed Operation Date: 10/11/21 10:10 Actual Procedures p Left Reverse Total Shoulder Arthroplasty(Left) - Lobo Augustin DO Ordered Studies 10/11/21 10:11 US - OR guided needle placemen Routine Hospital Course (1) Status post reverse total replacement of left shoulder: On October 11, 2021 Aileen arrived at [facility] and underwent a left reverse shoulder replacement without complication. She had a general anesthetic and a left interscalene nerve block. Postoperatively she was placed in a sling and transferred to the general orthopedic floors. Her hospital course was uneventful. On postop day #1 her vital signs were stable and her pain was well controlled. She was able to participate well with physical therapy doing ambulation and range of motion exercises. She was then discharged home. She will follow-up with orthopedics in 2 weeks. PG Care Time/CCT Total # of Minutes Spent Total Time Spent with Patient: Total time spent is greater than 50% in coordination of care (as documented) at patient's floor/unit and/or counseling patient: Discharge Plan Discharge Items Patient Disposition: Home - Home Health Services Reason For Visit: DJD Left Shoulder Discharge Diagnosis: Left reverse shoulder replacement Activity: Per Instructions section Non-emergency contact: Surgeon Call non-emergency contact if: your wound has increased redness and your wound has increased drainage Follow-up/Referrals: Heike Kessler CRNP [Primary Care Provider] - Diet: Regular Addtl Attending Provider Instructions: Activity and Therapy Recommendations: * If you are using [facility] then therapy will be provided at your home until they feel you have accomplished all of your goals. * If you are using [facility] then Physical Therapy will be provided until they feel you are ready to start Outpatient Physical Therapy. * If you are not using home therapy then Outpatient Physical Therapy should start about 3-5 days from your day of surgery. Therapy will last about 8-12 weeks * Wear your sling for 3 weeks, unless otherwise instructed. You may remove your sling to shower and to dress, but otherwise, you should be in your sling at all times, including while sleeping * The shoulder replacement is very stable and you can use your hand while in the sling * You were shown a series of exercises in the hospital. Do these exercises daily including the exercises you were shown in physical therapy. Medications: * Narcotic You will likely be sent home from the hospital with a prescription for the narcotic pain medication that worked best throughout your stay. * Other medications may be prescribed for specific circumstances. If you have any questions, please call the office at . * Resume previous home medications unless otherwise instructed Dressing Care: Leave the Silverlon dressing in place for 7 days. After 7 days you may remove the dressing. If the incision is not draining then you may leave the duy open to air. If there is a little bit of drainage or if the duy are getting stuck on your clothing then cover the incision with a dry dressing. The duy will be removed at your 2 week follow-up appointment. Showering: You may shower with the Silverlon dressing in place. Do not let the shower spray hit the dressing directly. Pat the Silverlon dressing dry. If the dressing becomes wet underneath, then simply remove the dressing. Keep the incision dry until you are 7 days out from the day of surgery. After 7 days you may remove the Silverlon dressing and shower with the duy exposed. Let soapy water run over the duy and pat them dry. Do not scrub or soak the incision. Things To Watch For: * Drainage from the incision site that occurs more than one week after your surgery. * Increased redness at the incision site. * Fever above 102 degrees Fahrenheit. * Unusual chest pain or shortness of breath. * Call [facility] at with any of the above problems Follow-Up Visit: Follow-up with Dr. Augustin's PA (Lobo Jo) 2-3 weeks after your day of surgery. He will remove your duy and answer any questions. If you have any additional questions or concerns, Dr Augustin is usually in the office at the same time and will be available An appointment was probably scheduled when you signed-up for surgery in the office. If you have any questions call More detailed instructions as well as Frequently Asked Questions were provided in a folder by our office when you signed-up for surgery. Please review these instructions when you get home. If you have any further questions or concerns, please feel free to call the office at [phone] Pending Studies at Discharge: No Stand-Alone Forms: My [facility] Medications and DC Order Prescriptions: Continued oxycodone-acetaminophen [Percocet] 5-325 mg tablet 1 tab PO Q6H PRN (Reason: pain) Qty: 30 RF: 0 oxycodone-acetaminophen [Percocet] 5-325 mg tablet 1 tab PO Q6H PRN (Reason: pain) Qty: 20 RF: 0 calcium citrate-vitamin D3 [Calcium Citrate + D] 315-200 mg-unit tablet 1 tab PO BID RF: 0 hydrocodone-acetaminophen 5-325 mg tablet 1 tab PO Q6H PRN (Reason: pain) Qty: 30 RF: 0 acetaminophen [Tylenol Extra Strength] 500 mg tablet 500 mg PO Q6H PRN (Reason: Pain) RF: 0 simvastatin 20 mg tablet 20 mg PO QPM RF: 0 diltiazem HCl 180 mg Capsule,Extended Release 24hr 180 mg PO QAM 30 Days Qty: 30 RF: 1 tamsulosin 0.4 mg Capsule 0.4 mg PO QAM 30 Days Qty: 30 RF: 0 cholecalciferol (vitamin D3) 2,000 unit capsule 2,000 units PO QAM RF: 0 fexofenadine 180 mg Tablet 180 mg PO QAM PRN (Reason: Allergy Symptoms) RF: 0 glucosamine-chondroitin [Osteo Bi-Flex] 250-200 mg Tablet 1 tab PO BID RF: 0 Discharge Orders: Discharge Order (Routine); Ordered 10/12/21 Ordered By: Lobo Augustin Admission Data Admit Date/Time: 10/11/21 11:54 Attending Provider: Lobo Augustin Admit Provider: Lobo Augustin Primary Care Provider: Heike Kessler
[2021-10-12] MEDS ORDERED: dexAMETHasone 4 MG TAB PO SCH (08:00)
[2021-10-12] MEDS: DOCUSATE SODIUM 100 MG CAP PO SCH ×2 (08:29→08:32)
[2021-10-12] MEDS ORDERED: dilTIAZem HCL 180 MG CAPCR PO SCH (09:00)
[2021-10-12] MEDS ORDERED: TAMSULOSIN HCL 0.4 MG CAP PO SCH (09:00)
[2021-10-12] MEDS ORDERED: MULTIVITAMIN TAB PO SCH (09:00)
== END 2021-10-12 12:45 | disposition home health service (06) ==
LOC: 3E 07:33 → ASU 07:33
DX: Z88.8 Allergy status to other drugs, medicaments and biological substances; M12.812 Other specific arthropathies, not elsewhere classified, left shoulder; M75.22 Bicipital tendinitis, left shoulder; Z79.899 Other long term (current) drug therapy